=== PATIENT | male | born 1935 | race Caucasian/White ===

== ENCOUNTER 2017-08-04 12:08 | Emergency (ER) | payer MEDICARE ==
[~2017-08-04] VITALS: Ht 177.8 cm; Wt 86.8 kg
[~2017-08-04 12:08] MED LIST: ALPR1T PO; ASP81CT PO; ASPI-266 PO; CALC1TAB38 PO; CPR500T PO; FNST5T PO; HYDR-2890 PO; ISOS30TA3 PO; LANS30CA PO; MECL-124 PO; METO50TA2 PO; METO50TA7 PO; NTR.4SL PO; OMG1KC PO; RAMI10TA PO; SCOP1PAT TD; SIMV40TA2 PO; SIMV80TA3 PO; SPIR25TA3 PO; SULF-222 PO
[2017-08-04] MEDS ORDERED: HYDROcodone/APAP 5 MG/325 MG (LORTAB) TAB PO ONE (12:45)
--- NOTE | 2017-08-04 13:35 | ED Lower Extremity ---
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 Nursing Sepsis Screen: No Definite Risk Source: patient Exam Limitations: no limitations History of Present Illness Time seen by provider: 13:32 Initial Comments To ER with pain and tenderness to palpation to the lateral aspect of the left leg for the past 2-3 days. This goes from the ileum to the knee. No known injury. No swelling but he does have a history of DVT. Onset: other (2 days ago) Severity: moderate Pain/Injury Location: left leg Modifying Factors: Worse With Movement Allergies and Home Medications Allergies Coded Allergies: zolpidem (Verified Adverse Reaction, Severe, TOTAL CONFUSION ET OUT OF CHARACTER BEHAVIOR, 09/03/14) HAD AN AMBIEN WAS UP, MAKING BED, SUSPICIOUS, OUT OF IT, NO MEMORY OF THIS IN A.M. Home Medications Alprazolam 1 Mg Tablet, 0.5-1 MG PO BID PRN for ANXIETY, (Reported) TAKES 1/2 - 1 (1MG) TABLET Aspirin 81 Mg Tablet.dr, 81 MG PO DAILY, (Reported) Finasteride 5 Mg Tablet, 5 MG PO DAILY, (Reported) Hydrocodone Bit/Acetaminophen 1 Each Tablet, 1 TAB PO Q4H PRN for PAIN, ( Reported) Isosorbide Mononitrate 30 Mg Tab.sr.24h, 30 MG PO DAILY, (Reported) Lansoprazole 30 Mg Capsule.dr, 30 MG PO BID, (Reported) Metoprolol Tartrate 50 Mg Tablet, 25 MG PO BID, (Reported) TAKE 1/2 (50MG) TABLET Nitroglycerin 0.4 Mg Subl, 0.4 MG PO NEEDED PRN for CHEST PAIN, (Reported) [place] 3 Polyunsat Fatty Acids 1,000 Mg Cap, 2,000 MG PO BID, (Reported) TAKE 2 (1000MG) CAPSULE Ramipril 10 Mg Tablet, 10 MG PO HS, (Reported) Simvastatin 80 Mg Tablet, 40 MG PO HS, (Reported) TAKE 1/2 (80MG) TABLETS Spironolactone 25 Mg Tablet, 25 MG PO DAILY PRN for SWELLING, (Reported) Constitutional: see HPI EENTM: see HPI Respiratory: no symptoms reported Cardiovascular: no symptoms reported Genitourinary: no symptoms reported Musculoskeletal: see HPI Skin: no symptoms reported Psychiatric/Neurological: No Symptoms Reported Past Cbidaed-Plxvmd-Zxqpce Hx Patient Social History Alcohol Use: Occasionally Uses Alcohol Beverage of Choice: Wine Recreational Drug Use: No Smoking Status: Former Smoker Former Smoker, Quit: Jul 19, 1967 Recent Foreign Travel: No Contact w/Someone Who Travel: No Recent Infectious Disease Expo: No Recent Hopitalizations: No Immunizations Up To Date Tetanus Booster (TDap): More than 5yrs Date of Pneumonia Vaccine: Jul 19, 2016 Date of Influenza Vaccine: Jul 19, 2017 Seasonal Allergies Seasonal Allergies: No Surgeries History of Surgeries: Yes (hip replacement, hand, carpal tunnel, HERNIA) Surgeries: Cardiac, CABG, Coronary Stent, Gallbladder Respiratory History of Respiratory Disorde: No Cardiovascular History of Cardiac Disorders: Yes (bi pass x5, stents) Cardiac Disorders: Deep Vein Thrombosis Neurological History of Neurological Disord: No Reproductive System Hx Reproductive Disorders: No Genitourinary History of Genitourinary Disor: Yes (PROSTATE CA) Genitourinary Disorders: Prostate Problems Gastrointestinal History of Gastrointestinal Di: No Musculoskeletal History of Musculoskeletal Dis: Yes Musculoskeletal Disorders: Arthritis Endocrine History of Endocrine Disorders: No HEENT Loss of Vision: Denies Hearing Impairment: Denies 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, Skin Psychosocial History of Psychiatric Problem: Yes Behavioral Health Disorders: Anxiety Integumentary History of Skin or Integumenta: No Blood Transfusions History of Blood Disorders: No Adverse Reaction to a Blood Tr: No Family Medical History Family Medial History: Cancer 19 MOTHER, , Age:38 FH: kidney cancer 19 FATHER, FHx: heart disease G8 BROTHER G8 SISTER Myocardial infarction 19 FATHER, Physical Exam Vital Signs Vital Sign - Last 12Hours 08/04/17 12:33 Temp 98.5 Pulse 105 Resp 20 B/P (MAP) 128/66 Pulse Ox 95 O2 Delivery Room Air Capillary Refill : Less Than 3 Seconds General Appearance: WD/WN, no apparent distress HEENT: PERRL/EOMI, normal ENT inspection Neck: non-tender, full range of motion Cardiovascular: regular rate, rhythm, no murmur Respiratory: no respiratory distress, no accessory muscle use Gastrointestinal: normal bowel sounds, non tender, soft Hips: bilateral hip non-tender, bilateral hip normal inspection, bilateral hip normal range of motion Legs: left leg other (left lateral thigh tenderness to palpation. no rash, erythema, ecchymosis. ) Knees: bilateral knee non-tender, bilateral knee normal inspection, bilateral knee normal range of motion Ankles: bilateral ankle non-tender, bilateral ankle normal inspection, bilateral ankle normal range of motion Feet: bilateral foot non-tender, bilateral foot normal inspection, bilateral foot normal range of motion Neurologic/Psychiatric: alert, normal mood/affect, oriented x 3 Skin: normal color, warm/dry Progress/Results/Core Measures Results/Orders My Orders Orders - DANIELA KUNZ APRN Us Venous Upper Ext Lt (08/04/17 12:29) Pelvis (08/04/17 12:29) Femur, Left, 2 Views (08/04/17 12:29) Hydrocodone/Apap 5/325 Tablet (Lortab 5 (08/04/17 12:45) Us Venous Lower Ext Lt (08/04/17 13:13) Medications Given in ED Current Medications Medications Dose Ordered Sig/Tiarra Route Start Time Stop Time Status Last Admin Dose Admin Acetaminophen/ Hydrocodone Bitart 1 tab ONCE ONCE PO 08/04/17 12:45 08/04/17 12:46 DC 08/04/17 12:46 1 TAB Vital Signs/I&O Vital Sign - Last 12Hours 08/04/17 08/04/17 12:33 12:46 Temp 98.5 98.5 Pulse 105 Resp 20 B/P (MAP) 128/66 Pulse Ox 95 O2 Delivery Room Air Blood Pressure Mean: 86 Departure Impression Impression: Primary Impression: Iliotibial band syndrome Disposition: 01 HOME, SELF-CARE Condition: Stable Departure-Patient Inst. Decision time for Depature: 13:34 Referrals: OSWALD ALLRED MD (PCP) Primary Care Physician NATE SAL MD (Family) Primary Care Physician Patient Instructions: Iliotibial Band Syndrome Add. Discharge Instructions: 1. Return to ER for any concerns 2. Pain medication as directed 3. Stretching exercises as demonstrated 4. Follow-up with your doctor next week All discharge instructions reviewed with patient and/or family. Voiced understanding. Scripts Tramadol HCl (Ultram) 50 Mg Tablet 50 MG PO Q6H Y for PAIN-MODERATE TO SEVERE, #14 TAB Prov: DANIELA KUNZ APRN 08/04/17 Ibuprofen (Ibuprofen) 400 Mg Tablet 400 MG PO Q6H Y for PAIN, #14 TAB Prov: DANIELA KUNZ APRN 08/04/17 DANIELA KUNZ APRN Aug 04, 2017 13:35
[2017-08-04] MEDS ORDERED: TRAM-42 PO (13:37)
[2017-08-04] MEDS ORDERED: IBUP-1779 PO (13:37)
--- NOTE | 2017-08-04 13:49 | Diagnostic Imaging Report ---
PROCEDURE: US left lower extremity venous. TECHNIQUE: Multiple Real-time grayscale images were obtained over the left lower extremity in various projections. Additional duplex Doppler and color Doppler images were also obtained. INDICATION: Left leg pain. FINDINGS: The femoropopliteal deep venous system are widely patent. No deep or superficial thrombus is identified. There is a lobular popliteal fossa Lyon's cyst on the left measuring 3.5 x 1.5 x 5.5 cm longitudinally, presumed Lyon's cyst. No other mass or fluid collection. IMPRESSION: Prominent left popliteal fossa Lyon's cyst; however, the study is negative for venous thrombus. Dictated by: Dictated on workstation # [id number]
--- NOTE | 2017-08-04 14:33 | Diagnostic Imaging Report ---
AP view of the pelvis. INDICATION: Injury. FINDINGS: No fracture, dislocation or radiopaque foreign body. There is a right hip replacement. There is a eiwu-xq-mozogclm degenerative change in the left hip. IMPRESSION: No fracture seen. Dictated by: Dictated on workstation # [id number]
[2017-08-04 14:40] VITALS: BP 128/66
--- NOTE | 2017-08-04 14:56 | Diagnostic Imaging Report ---
Two views of the left femur. INDICATION: Left femur pain. FINDINGS: No fracture or dislocation is seen. The proximal and distal joints appear grossly unremarkable. There are teih-ad-fgrwoqdv degenerative changes in the left hip and left knee. No radiopaque foreign body. IMPRESSION: Degenerative changes. No fracture seen. Dictated by: Dictated on workstation # [id number]
== END 2017-08-04 14:40 | disposition home or self-care (01) ==
LOC: EDUNIT# 12:08 → ER 12:11
DX: M76.31 Iliotibial band syndrome, right leg (principal); F41.9 Anxiety disorder, unspecified; Z85.46 Personal history of malignant neoplasm of prostate; Z86.718 Personal history of other venous thrombosis and embolism; Z95.5 Presence of coronary angioplasty implant and graft; Z95.1 Presence of aortocoronary bypass graft; Z80.51 Family history of malignant neoplasm of kidney; Z79.82 Long term (current) use of aspirin; Z87.891 Personal history of nicotine dependence
CPT/HCPCS: 72170; 73552; 99283

== ENCOUNTER → 2017-08-17 | Outpatient (CLI) | payer MEDICARE ==
[~2017-08-17] MED LIST changes: +BARIUM SUSPENSION 2.1% (VANILLA SILQ) 450 ML PO ONE; +IBUP-1779 PO; +IOHEXOL 350 MG/ML 100 ML (OMNIPAQUE 350) VIAL IV ONE; +NS 100 ML (IVPB) BAG IV ONE; +TRAM-42 PO
[2017-08-17] MEDS: CATHETER FLUSH 10 ML SYR IV PRN ×2 (11:37→11:52)
--- NOTE | 2017-08-17 20:04 | Diagnostic Imaging Report ---
PROCEDURE: CT abdomen and pelvis with contrast. TECHNIQUE: Multiple contiguous axial images were obtained through the abdomen and pelvis after administration of intravenous contrast. INDICATION: Prostate cancer. 100 mL of Omnipaque 350 is administered intravenously. FINDINGS: There is mild bilateral gynecomastia seen. The lung bases demonstrate minimal atelectasis. The liver demonstrates a 1.5 cm cystic lesion in the central aspect of the right hepatic lobe. Tiny subcentimeter other hypodense lesions are seen in the liver, likely related to cirrhosis. The spleen, the pancreas, and the adrenal glands appear unremarkable. The kidneys have symmetric enhancement and contrast excretion. There is no hydronephrosis. Multiple cysts are seen bilaterally. 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 The abdominal aorta is normal in caliber. No para-aortic significantly enlarged lymph node is seen. There is a tiny fat-containing umbilical hernia. There is no bowel obstruction. No significant free fluid or fluid collection in the abdomen or pelvis is seen. There are beam hardening artifacts that would decrease sensitivity of detection of a subtle abnormality within the pelvis related to right hip replacement. The prostate is 4.4 cm in transverse dimension. The urinary bladder is nearly empty and with superimposed artifacts, is not well assessed on this exam. Advanced degenerative changes in the lumbar spine are seen. IMPRESSION: 1. No evidence of metastases in the abdomen or pelvis. 2. Tiny fat-containing umbilical hernia. Dictated by: Dictated on workstation # [id number]
--- NOTE | 2017-08-17 20:38 | Diagnostic Imaging Report ---
EXAMINATION: Whole body bone scan. TECHNIQUE: After the intravenous administration of 26.7 mCi of Technetium 99m MDP, whole body delayed phase bone scan images were obtained with lateral views of the head and neck and the chest regions. INDICATION: Prostate cancer. FINDINGS: There is mild to moderate increased tracer uptake seen around the sternoclavicular joint, bilaterally, similar to prior exam from 02/02/2007. Compatible with degenerative changes. There is a lesser degree of activity compatible with degenerative changes also noted in the joints including the shoulders, SI joints, hips and knees. Around the right hip there is photopenia from hip replacement. No suspicious intense foci of increased activity seen, particularly within the axial skeleton, to suggest osseous metastasis. Renal and urinary bladder activity is seen, expected from excretion. IMPRESSION: No scintigraphic evidence of osseous metastasis. Dictated by: Dictated on workstation # [id number]
== END ==
LOC: CARD 11:28
PROVIDERS: ATTEND Urology
DX: C61 Malignant neoplasm of prostate (principal)
CPT/HCPCS: 74177; 78306

== ENCOUNTER → 2018-05-01 | Outpatient (CLI) | payer MEDICARE ==
[~2018-05-01] MED LIST changes: -BARIUM SUSPENSION 2.1% (VANILLA SILQ) 450 ML PO ONE; -IOHEXOL 350 MG/ML 100 ML (OMNIPAQUE 350) VIAL IV ONE; -NS 100 ML (IVPB) BAG IV ONE
--- NOTE | 2018-05-01 08:55 | Diagnostic Imaging Report ---
CLINICAL INDICATION: Patient with posterior distal shaft humerus pain with no known injury for past two weeks. EXAM: X-ray of left humerus, two views. COMPARISON: X-ray left shoulder, dated 12/14/2010. FINDINGS: There is no evidence of acute fracture or dislocation. There is severely hypertrophic spurs involving the left acromioclavicular joint again seen. There is mild to moderately hypertrophic spurs involving the left glenoid rim and proximal humeral head/neck junction region. There is small spurs involving the elbow joint region. IMPRESSION: 1: There is no acute fracture or dislocation. 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 Dictated by: Dictated on workstation # [id number]
== END ==
LOC: RAD 08:31
PROVIDERS: ATTEND Family Medicine
DX: M19.012 Primary osteoarthritis, left shoulder (principal); M19.022 Primary osteoarthritis, left elbow
CPT/HCPCS: 73060

== ENCOUNTER → 2018-08-07 | Outpatient (CLI) | payer MEDICARE ==
--- NOTE | 2018-08-07 16:04 | Diagnostic Imaging Report ---
EXAMINATION: Whole body bone scan. INDICATION: Prostate CA. TECHNIQUE: This study was performed following administration of 26.6 mCi of 99m technetium MDP. Anterior and posterior whole body images were obtained as well as spot films of the calvarium and thorax in the lateral projection. FINDINGS: The previous whole body bone scan performed on 08/17/2017 failed to show any sign of metastatic disease. There was increased activity involving the acromioclavicular joint on the right, however. On this exam, there does appear to be greater activity involving the acromioclavicular joint on the right. The activity in both sternoclavicular joints is also greater than on the prior exam. I suspect that these findings are more likely due to degenerative disease than to neoplastic disease. Also, as on the prior exam, there are small areas of increased activity in the thoracic and lumbar spine. These seem similar in appearance as well. No new area of abnormal uptake has developed to suggest metastatic disease. As on the previous exam, there does appear to be severe degenerative disease involving the shoulder and knee joints as well as the left hip. There is excretion of the radiotracer by both kidneys. IMPRESSION: The increased activity involving the acromioclavicular joint on the right and both sternoclavicular joints is more likely due to degenerative disease than to neoplasm. There is no new area of abnormal uptake to suggest metastatic disease. Dictated by: Dictated on workstation # [id number]
--- NOTE | 2018-08-07 16:21 | Diagnostic Imaging Report ---
PROCEDURE: CT abdomen and pelvis without contrast. TECHNIQUE: Multiple contiguous axial images were obtained through the abdomen and pelvis without the use of intravenous contrast. INDICATION: Prostate CA. FINDINGS: The previous CT abdomen/pelvis exam of 08/17/2017 failed to show any sign of an acute abnormality of the abdomen or pelvis. There was no evidence for metastatic disease related to the patient's diagnosis of prostate carcinoma either. On this study, the prostate gland does not appear to be enlarged measuring 4.5 cm in maximum transverse diameter (normal 5 cm or less). There is no pelvic adenopathy to suggest metastatic disease. The pelvis is partially obscured however due to streak artifact related to the patient's total hip prosthesis on the right. The postsurgical changes involving the rectosigmoid junction seen previously are again evident. The urinary bladder is only partially distended and consequently difficult to assess. There is no obvious bladder abnormality evident. There does appear to be a sizable 3.9 x 5.3 cm hydrocele in the right scrotum. If further study is desired, then ultrasound would be recommended. There are few diverticula in the sigmoid and descending colon but there is no sign of acute diverticulitis. The appendix was visualized and is not abnormally thickened. The cyst arising from the kidneys seen previously are again evident. 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 The liver is stable in size. The suspected cysts in the left lobe and in the right lobe are again evident and essentially no different. The spleen, pancreas, adrenals, aorta, and inferior vena cava show no sign of an acute abnormality. The gallbladder is surgically absent. The stomach is partially filled with particulate matter and consequently difficult to assess. The lung bases show chronic pulmonary disease. There is no acute cardiopulmonary abnormality noted. The bone windows show no evidence for fracture or for destructive lesion. 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 IMPRESSION: 1. There is no acute abnormality of the abdomen or pelvis. 2. There is no sign of metastatic disease related to the patient's diagnosis of prostate carcinoma. A nuclear medicine bone scan is pending for further study. 3. There is a large hydrocele in the right scrotum. Recommendations, as above. Dictated by: Dictated on workstation # [id number]
== END ==
LOC: CARD 10:38
PROVIDERS: ATTEND Urology
DX: C61 Malignant neoplasm of prostate (principal); N43.3 Hydrocele, unspecified
CPT/HCPCS: 74176; 78306

== ENCOUNTER 2019-08-09 15:53 | Emergency (ER) | payer MEDICARE ==
[~2019-08-09] VITALS: Ht 177 cm; Wt 80.4 kg
--- NOTE | 2019-08-09 16:14 | ED Cough/URI ---
General Chief Complaint: Respiratory Problems Stated Complaint: SOB, COUGHING, CHEST CONGESTION Nursing Triage Note: DR ALLRED SAW PT AT HIS HOUSE AND SENT HIM TO THE ER FOR POSSIBLE PNEUMONIA. Sepsis Screen: No Definite Risk Source: patient Exam Limitations: no limitations History of Present Illness Date Seen by Provider: Aug 09, 2019 Time Seen by Provider: 16:11 Initial Comments 83-year-old male presents with worsening cough, subjective fever. Patient reports that 5 days ago he was seen at his house by Dr. Allred. He was prescribed azithromycin. Patient was racing again today. Concerned that he might possibly have a right lower lobe pneumonia and seemed to the ER for evaluation. He did start him on Keflex because patient initially did not want presents to the ER. No other systemic complaints. Allergies and Home Medications Allergies Coded Allergies: zolpidem (Verified Adverse Reaction, Severe, TOTAL CONFUSION ET OUT OF CHARACTER BEHAVIOR, 09/03/14) HAD AN AMBIEN WAS UP, MAKING BED, SUSPICIOUS, OUT OF IT, NO MEMORY OF THIS IN A.M. Home Medications Alprazolam 1 Mg Tablet, 0.5-1 MG PO BID PRN for ANXIETY, (Reported) TAKES 1/2 - 1 (1MG) TABLET Aspirin 81 Mg Tablet.dr, 81 MG PO DAILY, (Reported) Finasteride 5 Mg Tablet, 5 MG PO DAILY, (Reported) Hydrocodone Bit/Acetaminophen 1 Each Tablet, 1 TAB PO Q4H PRN for PAIN, (Reported) Ibuprofen 400 Mg Tablet, 400 MG PO Q6H PRN for PAIN Prescribed by: DANIELA KUNZ on 08/04/17 1337 Isosorbide Mononitrate 30 Mg Tab.sr.24h, 30 MG PO DAILY, (Reported) Lansoprazole 30 Mg Capsule.dr, 30 MG PO BID, (Reported) Metoprolol Tartrate 50 Mg Tablet, 25 MG PO BID, (Reported) TAKE 1/2 (50MG) TABLET Nitroglycerin 0.4 Mg Subl, 0.4 MG PO NEEDED PRN for CHEST PAIN, (Reported) [place] 3 Polyunsat Fatty Acids 1,000 Mg Cap, 2,000 MG PO BID, (Reported) TAKE 2 (1000MG) CAPSULE Ramipril 10 Mg Tablet, 10 MG PO HS, (Reported) Simvastatin 80 Mg Tablet, 40 MG PO HS, (Reported) TAKE 1/2 (80MG) TABLETS Spironolactone 25 Mg Tablet, 25 MG PO DAILY PRN for SWELLING, (Reported) Tramadol HCl 50 Mg Tablet, 50 MG PO Q6H PRN for PAIN-MODERATE TO SEVERE Prescribed by: DANIELA KUNZ on 08/04/17 [id number] Patient Home Medication List Home Medication List Reviewed: Yes Review of Systems Review of Systems Constitutional: chills, fever, malaise EENTM: see HPI Respiratory: cough, short of breath Gastrointestinal: no symptoms reported Genitourinary: no symptoms reported Musculoskeletal: no symptoms reported Skin: no symptoms reported Psychiatric/Neurological: No Symptoms Reported Past Txfmxya-Iuiftu-Qwwxnn Hx Past Med/Social Hx: Reviewed Nursing Past Med/Soc Hx Patient Social History Alcohol Use: Occasionally Uses Alcohol Beverage of Choice: Wine Recreational Drug Use: No Smoking Status: Former Smoker Former Smoker, Quit: Jul 19, 1967 Recent Foreign Travel: No Contact w/Someone Who Travel: No Recent Infectious Disease Expo: No Recent Hopitalizations: No Immunizations Up To Date Tetanus Booster (TDap): More than 5yrs Date of Pneumonia Vaccine: Jul 19, 2016 Date of Influenza Vaccine: Jul 19, 2017 Seasonal Allergies Seasonal Allergies: No Past Medical History Surgeries: Yes (hip replacement, hand, carpal tunnel, HERNIA) Cardiac, CABG, Coronary Stent, Gallbladder Respiratory: No Cardiac: Yes (bi pass x5, stents) Deep Vein Thrombosis Neurological: No Reproductive Disorders: No Genitourinary: Yes (PROSTATE CA) Prostate Problems Gastrointestinal: No Musculoskeletal: Yes Arthritis Endocrine: No Loss of Vision: Denies Hearing Impairment: Denies 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 5.0oz. 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 specialist II-XII nml as tested, alert, normal mood/affect, oriented x 3 Skin: normal color, warm/dry Focused Exam Lactate Level 08/09/19 16:25: Lactic Acid Level 0.99 Lactic Acid Level Laboratory Tests Test 08/09/19 16:25 Lactic Acid Level 0.99 MMOL/L (0.50-2.00) Progress/Results/Core Measures Suspected Sepsis Recent Fever Within 48 Hours: No Infection Criteria Present: Suspected New Infection New/Unexplained Altered Menta: No Sepsis Screen: No Definite Risk SIRS Temperature: Pulse: 100 Respiratory Rate: 16 Laboratory Tests 08/09/19 16:25: White Blood Count 5.6 Blood Pressure 168 /83 Mean: 111 08/09/19 16:25: Lactic Acid Level 0.99 Laboratory Tests 08/09/19 16:25: Creatinine 1.16, Platelet Count 125L Results/Orders Lab Results Laboratory Tests Test 08/09/19 16:25 Range/Units White Blood Count 5.6 4.3-11.0 10^3/uL Red Blood Count 4.31 L 4.35-5.85 10^6/uL Hemoglobin 13.1 L 13.3-17.7 G/DL Hematocrit 40 40-54 % Mean Corpuscular Volume 93 80-99 FL Mean Corpuscular Hemoglobin 30 25-34 PG Mean Corpuscular Hemoglobin Concent 33 32-36 G/DL Red Cell Distribution Width 12.8 10.0-14.5 % Platelet Count 125 L 130-400 10^3/uL Mean Platelet Volume 10.1 7.4-10.4 FL Sodium Level 139 135-145 MMOL/L Potassium Level 3.6 3.6-5.0 MMOL/L Chloride Level 101 98-107 MMOL/L Carbon Dioxide Level 25 21-32 MMOL/L Anion Gap 13 5-14 MMOL/L Blood Urea Nitrogen 19 H 7-18 MG/DL Creatinine 1.16 0.60-1.30 MG/DL Estimat Glomerular Filtration Rate 60 BUN/Creatinine Ratio 16 Glucose Level 124 H 70-105 MG/DL Lactic Acid Level 0.99 0.50-2.00 MMOL/L Calcium Level 8.9 8.5-10.1 MG/DL C-Reactive Protein High Sensitivity 2.17 H 0.00-0.50 MG/DL My Orders Orders - DOV CARTER L DO Chest Pa/Lat (2 View) (08/09/19 16:15) Basic Metabolic Panel (08/09/19 16:15) Cbc No Diff (08/09/19 16:15) Hs C Reactive Protein (08/09/19 16:15) Lactic Acid Analyzer (08/09/19 16:15) Albuterol/Ipra Inhalation Soln (Duoneb I (08/09/19 16:30) Svn Small Volume Nebulizer (08/09/19 16:17) Ketorolac Injection (Toradol Injection) (08/09/19 17:45) Benzonatate Capsule (Tessalon Perles) (08/09/19 17:45) Dexamethasone Injection (Decadron Inject (08/09/19 17:45) Medications Given in ED Current Medications Medications Dose Ordered Sig/Tiarra Route Start Time Stop Time Status Last Admin Dose Admin Albuterol/ Ipratropium 3 ml ONCE ONCE INH 08/09/19 16:30 08/09/19 16:31 DC 08/09/19 17:07 3 ML Vital Signs/I&O 08/09/19 15:55 Temp 37.3 Pulse 100 Resp 16 B/P (MAP) 168/83 (111) Pulse Ox 93 O2 Delivery Room Air Capillary Refill : Less Than 3 Seconds Blood Pressure Mean: 111 POS Progress Note : Time: 17:44 Progress Note Patient's main complaint while is here was a continued cough. I reviewed labs and x-ray with patient. I discussed with him that within a minute but there was no reason for admission. He should continue his Keflex. I will send him home with a prescription for Tessalon Perles along with a inhaler that seemed to help him. Patient is stable. His oxygenation remained in the upper 90s. With no signs of respiratory distress. Patient to return to the ER as needed. Departure Impression Primary Impression: Bronchitis Disposition: 01 HOME, SELF-CARE Condition: Stable Departure-Patient Inst. Referrals: OSWALD ALLRED MD (PCP/Family) Primary Care Physician Patient Instructions: Acute Bronchitis, Cough, Runny Nose, and the Common Cold (DC) Scripts Albuterol Sulfate (Albuterol Sulfate) 2.5 Mg/3 Ml Vial.neb 2.5 MG INH Q4H PRN for WHEEZING, #50 EA 1 Refill Prov: DOV CARTER DO 08/09/19 Benzonatate (TESSALON PERLES) 100 Mg Capsule 100 MG PO Q8H PRN for COUGH, #15 CAP Prov: DOV CARTER DO 08/09/19 DOV CARTER DO Aug 09, 2019 16:14 POS
[2019-08-09] MEDS ORDERED: RT-ALBUTEROL/IPRATROPIUM 3 ML (DUONEB) VIAL INH ONE (16:30)
[2019-08-09 16:36] LABS: HEMOGLOBIN 13.1 G/DL (13.3-17.7); MEAN PLATELET VOLUME 10.1 FL (7.4-10.4); RED CELL DISTRIBUTION WIDTH 12.8 % (10.0-14.5); WHITE BLOOD COUNT 5.6 10^3/uL (4.3-11.0)
[2019-08-09 16:57] LABS: CALCIUM 8.9 MG/DL (8.5-10.1); CREATININE SERUM 1.16 MG/DL (0.60-1.30); POTASSIUM 3.6 MMOL/L (3.6-5.0)
--- NOTE | 2019-08-09 17:36 | Diagnostic Imaging Report ---
HISTORY: Left arm pain. Suspect pneumonia. TECHNIQUE: Two views of the chest. COMPARISON: 07/20/2015. FINDINGS: Postsurgical changes are again seen of the chest, including post-CABG changes. No focal consolidation is seen. There is no pleural effusion or pneumothorax. The cardiac silhouette is stable in size. Degenerative changes are seen in the acromioclavicular joints, bilaterally. IMPRESSION: No acute pulmonary abnormality is seen. Dictated by: Dictated on workstation # [id number]
[2019-08-09] MEDS ORDERED: DEXAMETHASONE 10 MG/ML (DECADRON) 1 ML VIAL IM ONE (17:45)
[2019-08-09] MEDS ORDERED: KETOROLAC 30 MG/ML VIAL IVP ONE (17:45)
[2019-08-09] MEDS ORDERED: BENZONATATE 100 MG (TESSALON) CAPSULE PO SCH (17:45)
[2019-08-09] MEDS ORDERED: BENZ100C18 PO (17:47)
[2019-08-09] MEDS ORDERED: ALBU2.5V4 INH (17:47)
[2019-08-09 18:00] VITALS: BP 140/80
== END 2019-08-09 18:00 | disposition home or self-care (01) ==
LOC: EDUNIT# 15:53 → ER 15:54
DX: J40 Bronchitis, not specified as acute or chronic (principal); F41.9 Anxiety disorder, unspecified; Z85.828 Personal history of other malignant neoplasm of skin; Z79.82 Long term (current) use of aspirin; Z85.46 Personal history of malignant neoplasm of prostate; Z95.5 Presence of coronary angioplasty implant and graft; Z88.8 Allergy status to other drugs, medicaments and biological substances; Z87.891 Personal history of nicotine dependence; Z95.1 Presence of aortocoronary bypass graft; Z86.718 Personal history of other venous thrombosis and embolism; Z82.49 Family history of ischemic heart disease and other diseases of the circulatory system; Z80.51 Family history of malignant neoplasm of kidney
CPT/HCPCS: 36415; 71046; 80048; 83605; 85027; 86141; 94640; 96372

== ENCOUNTER → 2019-08-23 | Outpatient (CLI) | payer MEDICARE ==
[~2019-08-23] MED LIST changes: +ALBU2.5V4 INH; +BENZ100C18 PO
[2019-08-23 11:38] LABS: BASOPHILS % (AUTO) 0 % (0-10); EOSINOPHILS # (AUTO) 0.2 10^3/uL (0.0-0.3); EOSINOPHILS % (AUTO) 2 % (0-10); HEMATOCRIT 39 % (40-54); HEMOGLOBIN 12.4 G/DL (13.3-17.7); LYMPHOCYTES # (AUTO) 1.4 X 10^3 (1.0-4.0); LYMPHOCYTES % (AUTO) 16 % (12-44); MEAN CORPUSCULAR HEMOGLOBIN 30 PG (25-34); MEAN CORPUSCULAR HGB CONC 32 G/DL (32-36); MEAN CORPUSCULAR VOLUME 94 FL (80-99); MEAN PLATELET VOLUME 9.5 FL (7.4-10.4); MONOCYTES # (AUTO) 0.8 X 10^3 (0.0-1.0); MONOCYTES % (AUTO) 9 % (0-12); NEUTROPHILS # (AUTO) 6.3 X 10^3 (1.8-7.8); NEUTROPHILS % (AUTO) 73 % (42-75); PLATELET COUNT 258 10^3/uL (130-400); RED CELL DISTRIBUTION WIDTH 12.7 % (10.0-14.5); WHITE BLOOD COUNT 8.8 10^3/uL (4.3-11.0)
[2019-08-23 12:14] LABS: BILIRUBIN,TOTAL 0.5 MG/DL (0.1-1.0); CALCIUM 9.9 MG/DL (8.5-10.1); CREATININE SERUM 1.17 MG/DL (0.60-1.30); POTASSIUM 4.6 MMOL/L (3.6-5.0); TOTAL PROTEIN 7.1 GM/DL (6.4-8.2)
== END ==
LOC: LAB 11:20
PROVIDERS: ATTEND Nurse Practitioner Family
DX: R53.1 Weakness (principal)
CPT/HCPCS: 36415; 80053; 84436; 84443; 85025

== ENCOUNTER → 2019-10-30 | Outpatient (CLI) | payer MEDICARE | LOC: CARD 08:05 | PROVIDERS: ATTEND Nurse Practitioner Family | DX: R06.09 Other forms of dyspnea (principal) | CPT/HCPCS: 93225; 93226 ==

== ENCOUNTER 2020-05-03 18:10 | Observation (INO) | payer MEDICARE ==
[~2020-05-03] VITALS: Ht 177 cm; Wt 74.8 kg
--- NOTE | 2020-05-03 18:10 | NUR ---
NOTIFIED OMI ROJAS OF PT CONDITION.
[2020-05-03] MEDS ORDERED: ASPIRIN 81 MG CHEW (CHILDREN'S ASA) PO ONE (18:30)
[2020-05-03] MEDS ORDERED: NITROGLYCERIN 0.4 MG SL TABS BTL 25'S SL PRN ×2 (18:30→21:45)
[2020-05-03 18:54] LABS: BASOPHILS % (AUTO) 0 % (0-10); EOSINOPHILS # (AUTO) 0.2 10^3/uL (0.0-0.3); EOSINOPHILS % (AUTO) 2 % (0-10); HEMATOCRIT 38 % (40-54); HEMOGLOBIN 12.5 G/DL (13.3-17.7); LYMPHOCYTES # (AUTO) 2.1 X 10^3 (1.0-4.0); LYMPHOCYTES % (AUTO) 27 % (12-44); MEAN CORPUSCULAR HEMOGLOBIN 30 PG (25-34); MEAN CORPUSCULAR HGB CONC 33 G/DL (32-36); MEAN CORPUSCULAR VOLUME 91 FL (80-99); MEAN PLATELET VOLUME 10.2 FL (7.4-10.4); MONOCYTES # (AUTO) 0.8 X 10^3 (0.0-1.0); MONOCYTES % (AUTO) 10 % (0-12); NEUTROPHILS # (AUTO) 4.7 X 10^3 (1.8-7.8); NEUTROPHILS % (AUTO) 60 % (42-75); PLATELET COUNT 172 10^3/uL (130-400); WHITE BLOOD COUNT 7.8 10^3/uL (4.3-11.0)
[2020-05-03 19:05] LABS: PROTHROMBIN TIME PATIENT 13.7 SEC (12.2-14.7)
[2020-05-03 19:19] LABS: ALBUMIN 4.1 GM/DL (3.2-4.5); BILIRUBIN,TOTAL 0.3 MG/DL (0.1-1.0); CALCIUM 9.5 MG/DL (8.5-10.1); CREATININE SERUM 1.21 MG/DL (0.60-1.30); MAGNESIUM 1.6 MG/DL (1.6-2.4); POTASSIUM 4.2 MMOL/L (3.6-5.0); TOTAL PROTEIN 6.7 GM/DL (6.4-8.2)
[2020-05-03 19:25] LABS: CREATINE KINASE MB 1.3 NG/ML (<6.6)
--- NOTE | 2020-05-03 19:28 | ED Chest Pain ---
General Chief Complaint: Chest Pain Stated Complaint: CP/COUGH Nursing Triage Note: PT AMBULATE TO ROOM 08 WITH C/O CHEST PAIN. PT'S ARGUED THAT SHE WAS COMING TO ROOM WITH PT. FREIGHT CLAIM INVESTIGATOR SPOKE WITH AND EXPLAINED THAT VISITORS ARE NOT ALLOWED IN THE ED. AGREED AND LEFT PHONE NUMBER WITH REGISTRATION. PT DENIES CHEST PAIN UPON ARRIVAL. PT REPORTS TAKING X3 NITRO REHABILITATION CONSULTANT. Nursing Sepsis Screen: No Definite Risk Source: patient History of Present Illness Date Seen by Provider: May 03, 2020 Time Seen by Provider: 18:23 Initial Comments PT ARRIVES VIA POV FROM HOME C/O CHEST PAIN IN CENTER OF CHEST STATES HE "HAD IT REAL BAD" LAST NIGHT--TOOK 3 NITROGLYCERINE AND IT WENT AWAY STATES "IT HIT ME AGAIN TODAY" --STATES AROUND 1729, HE HAD GONE OUTSIDE FOR A SHORT PERIOD OF TIME, AND AFTER HE GOT BACK INTO THE HOUSE, HE BEGAN HAVING CHEST PAIN AGAIN--TOOK 3 NITROGLYCERINE AND IT WENT AWAY AGAIN, BUT THEN CAME HERE C/O SHORTNESS OF BREATH WITH THE PAIN, NOT NOW NO NAUSEA/VOMITING NO SWEATS NO PALPITATIONS NO DIZZINESS OR SYNCOPE NO SWELLING IN LEGS / FEET STATES LAST NIGHT, HE WAS HAVING PAIN IN HIS NECK WELL, BUT NOT TODAY PT HAS HAD CABG IN 1991, MULTIPLE STENTS AND ANGIOPLASTIES NO KNOWN SICK CONTACTS NO COUGH, URI SYMPTOMS OR FEVER PCP: DR. DESAI ENGINEERING DESIGN MANAGER: JERRY VALLE Allergies and Home Medications Allergies Coded Allergies: zolpidem (Verified Adverse Reaction, Severe, TOTAL CONFUSION ET OUT OF CHARACTER BEHAVIOR, 09/03/14) HAD AN AMBIEN WAS UP, MAKING BED, SUSPICIOUS, OUT OF IT, NO MEMORY OF THIS IN A.M. Home Medications Albuterol Sulfate 2.5 Mg/3 Ml Vial.neb, 2.5 MG INH Q4H PRN for WHEEZING Prescribed by: DOV CARTER on 08/09/191746 Alprazolam 1 Mg Tablet, 0.5-1 MG PO BID PRN for ANXIETY, (Reported) TAKES 1/2 - 1 (1MG) TABLET Aspirin 81 Mg Tablet., 81 MG PO DAILY, (Reported) Benzonatate 100 Mg Capsule, 100 MG PO Q8H PRN for COUGH Prescribed by: DOV CARTER on 08/09/191746 Finasteride 5 Mg Tablet, 5 MG PO DAILY, (Reported) Hydrocodone Bit/Acetaminophen 1 Each Tablet, 1 TAB PO Q4H PRN for PAIN, (Reported) Ibuprofen 400 Mg Tablet, 400 MG PO Q6H PRN for PAIN Prescribed by: DANIELA KUNZ on 08/04/17 178 Isosorbide Mononitrate 30 Mg Tab.sr.24h, 30 MG PO DAILY, (Reported) Lansoprazole 30 Mg Capsule.dr, 30 MG PO BID, (Reported) Metoprolol Tartrate 50 Mg Tablet, 25 MG PO BID, (Reported) TAKE 1/2 (50MG) TABLET Nitroglycerin 0.4 Mg Subl, 0.4 MG PO NEEDED PRN for CHEST PAIN, (Reported) [place] 3 Polyunsat Fatty Acids 1,000 Mg Cap, 2,000 MG PO BID, (Reported) TAKE 2 (1000MG) CAPSULE Ramipril 10 Mg Tablet, 10 MG PO HS, (Reported) Simvastatin 80 Mg Tablet, 40 MG PO HS, (Reported) TAKE 1/2 (80MG) TABLETS Spironolactone 25 Mg Tablet, 25 MG PO DAILY PRN for SWELLING, (Reported) Tramadol HCl 50 Mg Tablet, 50 MG PO Q6H PRN for PAIN-MODERATE TO SEVERE Prescribed by: DANIELA KUNZ on 08/04/171336 Patient Home Medication List Home Medication List Reviewed: Yes Review of Systems Review of Systems Constitutional: no symptoms reported; No chills, No diaphoresis, No dizziness, No fever Respiratory: See HPI, Shortness of Air Cardiovascular: See HPI, Chest Pain; Denies Edema, Denies Irregular Heart Rate, Denies Lightheadedness, Denies Palpitations, Denies Syncope Gastrointestinal: No Symptoms Reported; Denies Abdominal Pain, Denies Nausea, Denies Vomiting Genitourinary: No Symptoms Reported Musculoskeletal: see HPI, neck pain (LAST NIGHT, NOT NOW) Skin: no symptoms reported Psychiatric/Neurological: No Symptoms Reported Endocrine: No Symptoms Reported Hematologic/Lymphatic: No Symptoms Reported Past Bmjcxla-Zkawtu-Lvssvw Hx Past Med/Social Hx: Reviewed and Corrections made Patient Social History Alcohol Use: Occasionally Uses Number of Drinks Today: Alcohol Beverage of Choice: Wine Recreational Drug Use: No Smoking Status: Former Smoker (QUIT OVER 50 YEARS AGO) Type Used: Cigarettes Former Smoker, Quit: Jul 19, 1967 2nd Hand Smoke Exposure: No Recent Foreign Travel: No Contact w/Someone Who Travel: No Recent Infectious Disease Expo: No Recent Hopitalizations: No Physical Abuse: No Sexual Abuse: No Mistreated: No Fear: No Immunizations Up To Date Tetanus Booster (TDap): More than 5yrs Date of Pneumonia Vaccine: Jul 19, 2016 Date of Influenza Vaccine: Jul 19, 2017 Seasonal Allergies Seasonal Allergies: No Past Medical History Surgeries: Yes (R hip replacement, hand, R carpal tunnel, HERNIA) Abdominal, Bowel Surgery, Cardiac, CABG, Coronary Stent, Gallbladder Respiratory: No Cardiac: Yes (5 VESSEL CABG; CARDIAC STENTS AND ANGIOPLASTIES) Coronary Artery Disease, High Cholesterol, Hypertension Neurological: Yes Vertigo Reproductive Disorders: No Genitourinary: Yes (PROSTATE CA) Prostate Problems Gastrointestinal: Yes (COLON RESECTION FOR DIVERTICULITIS;CHOLECY STECTOMY;HERNIA REPAIR) Abdominal Hernia, Diverticulosis, Gall Bladder Disease Musculoskeletal: Yes (RIGHT HIP REPLACEMENT) Arthritis, Chronic Back Pain Endocrine: No HEENT: No Loss of Vision: Denies Hearing Impairment: Denies 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; 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, Skin Did You Recieve Any Treatments: Yes What Type of Treatment Did You: Chemotherapy Psychosocial: Yes Anxiety Integumentary: No Blood Disorders: No Adverse Reaction/Blood Tranf: No Family Medical History Cancer 19 MOTHER, , Age:38 FH: kidney cancer 19 FATHER, FHx: heart disease G8 BROTHER G8 SISTER Myocardial infarction 19 FATHER, PSH: -5 VESSEL CABG 1991 -CARDIAC CATHS--MULTIPLE STENTS X 4 AND MULTIPLE ANGIOPLASTIES -COLON RESECTION FOR DIVERTICULITIS -RIGHT HIP REPLACEMENT -CHOLECYSTECTOMY 2010 -RIGHT CARPPAL TUNNEL 08/2014 -BACK SURGERY -HERNIA REPAIR Physical Exam Vital Signs Vital Signs - First Documented 05/03/20 18:43 Temp 36.6 Pulse 69 Resp 22 B/P (MAP) 129/62 (84) O2 Delivery Room Air Capillary Refill : Less Than 3 Seconds Height, Weight, BMI Height: 5'10.00" Weight: 191lbs. 5.0oz. 86.008025jm; 23.00 BMI Method:Stated General Appearance: No Apparent Distress, WD/WN, Other (AMBULATES IN ON OWN WITH A CANE) HEENT: PERRL/EOMI Neck: Full Range of Motion, Normal Inspection, Non Tender, Supple; No Carotid Bruit, No JVD Respiratory: Chest Non Tender, Normal Breath Sounds, No Accessory Muscle Use, No Respiratory Distress Cardiovascular: Regular Rate, Rhythm, No Edema, No JVD, No Murmur, Normal Peripheral Pulses Gastrointestinal: Normal Bowel Sounds, No Organomegaly, No Pulsatile Mass, Non Tender, Soft Extremity: Normal Capillary Refill, Normal Inspection, Normal Range of Motion, Non Tender, No Calf Tenderness, No Pedal Edema Neurologic/Psychiatric: Alert, Oriented x3, No Motor/Sensory Deficits, Normal Mood/Affect, cold press loader II-XII Norm as Tested Skin: Normal Color, Warm/Dry Progress/Results/Core Measures Results/Orders Lab Results Laboratory Tests Test 05/03/20 18:35 Range/Units White Blood Count 7.8 4.3-11.0 10^3/uL Red Blood Count 4.23 L 4.35-5.85 10^6/uL Hemoglobin 12.5 L 13.3-17.7 G/DL Hematocrit 38 L 40-54 % Mean Corpuscular Volume 91 80-99 FL Mean Corpuscular Hemoglobin 30 25-34 PG Mean Corpuscular Hemoglobin Concent 33 32-36 G/DL Red Cell Distribution Width 13.0 10.0-14.5 % Platelet Count 172 130-400 10^3/uL Mean Platelet Volume 10.2 7.4-10.4 FL Neutrophils (%) (Auto) 60 42-75 % Lymphocytes (%) (Auto) 27 12-44 % Monocytes (%) (Auto) 10 0-12 % Eosinophils (%) (Auto) 2 0-10 % Basophils (%) (Auto) 0 0-10 % Neutrophils # (Auto) 4.7 1.8-7.8 X 10^3 Lymphocytes # (Auto) 2.1 1.0-4.0 X 10^3 Monocytes # (Auto) 0.8 0.0-1.0 X 10^3 Eosinophils # (Auto) 0.2 0.0-0.3 10^3/uL Basophils # (Auto) 0.0 0.0-0.1 10^3/uL Erythrocyte Sedimentation Rate 16 0-30 MM/HR Prothrombin Time 13.7 12.2-14.7 SEC INR Comment 1.0 0.8-1.4 Activated Partial Thromboplast Time 33 24-35 SEC Sodium Level 138 135-145 MMOL/L Potassium Level 4.2 3.6-5.0 MMOL/L Chloride Level 104 98-107 MMOL/L Carbon Dioxide Level 23 21-32 MMOL/L Anion Gap 11 5-14 MMOL/L Blood Urea Nitrogen 26 H 7-18 MG/DL Creatinine 1.21 0.60-1.30 MG/DL Estimat Glomerular Filtration Rate 57 BUN/Creatinine Ratio 21 Glucose Level 115 H 70-105 MG/DL Calcium Level 9.5 8.5-10.1 MG/DL Corrected Calcium 9.4 8.5-10.1 MG/DL Magnesium Level 1.6 1.6-2.4 MG/DL Total Bilirubin 0.3 0.1-1.0 MG/DL Aspartate Amino Transf (AST/SGOT) 13 5-34 U/L Alanine Aminotransferase (ALT/SGPT) 8 0-55 U/L Alkaline Phosphatase 60 40-136 U/L Lactate Dehydrogenase 155 125-220 U/L Total Creatine Kinase 39 30-200 U/L Creatine Kinase MB 1.3 <6.6 NG/ML Myoglobin 53.6 10.0-92.0 NG/ML Troponin I 0.082 H <0.028 NG/ML C-Reactive Protein High Sensitivity 4.23 H 0.00-0.50 MG/DL B-Type Natriuretic Peptide 164.3 H <100.0 PG/ML Total Protein 6.7 6.4-8.2 GM/DL Albumin 4.1 3.2-4.5 GM/DL Amylase Level 40 25-125 U/L Lipase 13 8-78 U/L Procalcitonin 0.02 <0.10 NG/ML My Orders Orders - GEOFF BUCKLEY DO Cbc With Automated Diff (05/03/20 18:22) Magnesium (05/03/20 18:22) Chest 1 View, Ap/Pa Only (05/03/20 18:22) Ekg Tracing (05/03/20 18:22) Comprehensive Metabolic Panel (05/03/20 18:22) Myoglobin Serum (05/03/20 18:22) Protime With Inr (05/03/20 18:22) Partial Thromboplastin Time (05/03/20 18:22) O2 (05/03/20 18:22) Monitor-Rhythm Ecg Trace Only (05/03/20 18:22) Ed Iv/Invasive Line Start (05/03/20 18:22) Creatine Kinase (05/03/20 18:22) Creatine Kinase Mb (05/03/20 18:22) Lipase (05/03/20 18:22) Amylase (05/03/20 18:22) BNP (05/03/20 18:22) Troponin I (05/03/20 18:22) Nitroglycerin 0.4 Mg Btl 25's (Nitrostat (05/03/20 18:30) Aspirin Chewable Tablet (Baby Aspirin Ch (05/03/20 18:30) Procalcitonin (Pct) (05/03/20 18:22) Hs C Reactive Protein (05/03/20 18:22) Erythrocyte Sedimentation Rate (05/03/20 18:22) LDH (05/03/20 18:22) Coronavirus Sars-Cov-2 So 2018 (05/03/20 18:22) Medications Given in ED Current Medications Medications Dose Ordered Sig/Tiarra Route Start Time Stop Time Status Last Admin Dose Admin Aspirin 324 mg ONCE ONCE PO 05/03/20 18:30 05/03/20 18:31 DC 05/03/20 18:45 324 MG Nitroglycerin 0.4 mg UD PRN SL 05/03/20 18:30 05/03/20 18:51 0.4 MG Vital Signs/I&O 05/03/20 18:43 Temp 36.6 Pulse 69 Resp 22 B/P (MAP) 129/62 (84) O2 Delivery Room Air Blood Pressure Mean: 84 Progress Progress Note : Progress Note NO PAIN OR SYMPTOMS OF ANY KIND DURING ER STAY Initial ECG Impression Date: May 03, 2020 Initial ECG Impression Time: 18:28 Initial ECG Rate: 72 Initial ECG Rhythm: Normal Sinus Diagnostic Imaging Comments CXR--PER RADIOLOGIST REPORT AT 1952 FINDINGS: Frontal view of the chest demonstrates coronary artery bypass graft changes. The heart size and vascularity are normal. Lungs are clear. There are no pleural effusions. IMPRESSION: There is no acute finding. Reviewed: Reviewed by Me Departure Communication (Admissions) Family Conversation 2014--SPOKE WITH PT'S AND UPDATED HER ON PT'S CONDITION AND OF HIS ADMIT 1954--SPOKE WITH DR. HUTCHINSON, ACCEPTS PT FOR ADMIT 1999--SPOKE WITH DR. BABIN, ENGINEERING DESIGN MANAGER, ADVISED OF CONSULT. ORDERS NOTED. Impression Primary Impression: Chest pain Additional Impression: Person under investigation for COVID-19 Disposition: ADMITTED INPATIENT Condition: Stable Admissions Decision to Admit Reason: Admit from ER (General) Decision to Admit/Date: May 03, 2020 Time/Decision to Admit Time: 20:00 Departure-Patient Inst. Referrals: DARSHAN DESAI DO (PCP/Family) Primary Care Physician GEOFF BUCKLEY DO May 03, 2020 19:28
--- NOTE | 2020-05-03 19:48 | Diagnostic Imaging Report ---
INDICATION: Chest pain. FINDINGS: Frontal view of the chest demonstrates coronary artery bypass graft changes. The heart size and vascularity are normal. Lungs are clear. There are no pleural effusions. IMPRESSION: There is no acute finding. Dictated by: Dictated on workstation # [id number]
[2020-05-03] MEDS ORDERED: CATHETER FLUSH 10 ML SYR IV PRN (21:45)
[2020-05-03] MEDS ORDERED: morphine INJ 4 MG/ML 1 ML (VIAL/SYRINGE) IV PRN (21:45)
[2020-05-03] MEDS ORDERED: ONDANSETRON 4 MG/2 ML (SDV) Z0FRAN IV PRN (21:45)
[2020-05-03 21:54] VITALS: BP 132/68
[2020-05-03 21:55] VITALS: BP 132/68
[2020-05-03 22:19] VITALS: BP 129/67
[2020-05-03 23:00] VITALS: BP 122/62
[2020-05-03] MEDS ORDERED: ALPRAZolam 1 MG (XANAX) TAB ONE ×2 (23:02→23:12)
[2020-05-03] MEDS ORDERED: ALPRAZolam 1 MG (XANAX) TAB PO PRN (23:30)
[2020-05-03 23:52] LABS: BILIRUBIN,URINE NEGATIVE (NEGATIVE); CLARITY,URINE CLEAR; COLOR,URINE YELLOW; GLUCOSE, URINE (UA) NEGATIVE (NEGATIVE); KETONES,URINE NEGATIVE (NEGATIVE); LEUKOCYTE ESTERASE ,URINE NEGATIVE (NEGATIVE); NITRITE,URINE NEGATIVE (NEGATIVE); PROTEIN,URINE NEGATIVE (NEGATIVE)
[2020-05-03] MEDS: CATHETER FLUSH 10 ML SYR IV SCH (23:56)
[2020-05-04] VITALS (12 sets, daily range): BP systolic 101–136; BP diastolic 50–88
[2020-05-04 00:08] LABS: BACTERIA,URINE NEGATIVE /HPF; SQUAMOUS EPITHELIAL CELL,UR 0-2 /HPF
[2020-05-04 03:29] LABS: BASOPHILS % (AUTO) 1 % (0-10); EOSINOPHILS # (AUTO) 0.2 10^3/uL (0.0-0.3); EOSINOPHILS % (AUTO) 3 % (0-10); HEMATOCRIT 36 % (40-54); HEMOGLOBIN 11.7 G/DL (13.3-17.7); LYMPHOCYTES # (AUTO) 1.9 X 10^3 (1.0-4.0); LYMPHOCYTES % (AUTO) 33 % (12-44); MEAN CORPUSCULAR HEMOGLOBIN 30 PG (25-34); MEAN CORPUSCULAR HGB CONC 33 G/DL (32-36); MEAN CORPUSCULAR VOLUME 91 FL (80-99); MEAN PLATELET VOLUME 10.1 FL (7.4-10.4); MONOCYTES # (AUTO) 0.7 X 10^3 (0.0-1.0); MONOCYTES % (AUTO) 12 % (0-12); NEUTROPHILS # (AUTO) 3.1 X 10^3 (1.8-7.8); NEUTROPHILS % (AUTO) 52 % (42-75); PLATELET COUNT 160 10^3/uL (130-400); RED CELL DISTRIBUTION WIDTH 12.8 % (10.0-14.5); WHITE BLOOD COUNT 5.9 10^3/uL (4.3-11.0)
[2020-05-04 03:37] LABS: ALBUMIN 3.6 GM/DL (3.2-4.5); CHLORIDE 107 MMOL/L (98-107); POTASSIUM 3.9 MMOL/L (3.6-5.0); SODIUM 140 MMOL/L (135-145)
[2020-05-04 03:38] LABS: CALCIUM 9.4 MG/DL (8.5-10.1)
[2020-05-04 03:39] LABS: TRIGLYCERIDES 67 MG/DL (<150); VLDL CHOLESTEROL 13 MG/DL (5-40)
[2020-05-04 03:40] LABS: GLUCOSE 88 MG/DL (70-105); TOTAL PROTEIN 6.3 GM/DL (6.4-8.2)
[2020-05-04 03:41] LABS: CARBON DIOXIDE 24 MMOL/L (21-32)
[2020-05-04 03:42] LABS: BILIRUBIN,TOTAL 0.5 MG/DL (0.1-1.0)
[2020-05-04 03:43] LABS: ALKALINE PHOSPHATASE 55 U/L (40-136)
[2020-05-04 03:44] LABS: CHOLESTEROL 114 MG/DL (< 200); GFR ESTIMATED > 60
[2020-05-04 03:45] LABS: BUN/CREATININE RATIO 22
[2020-05-04 03:46] LABS: HDL CHOLESTEROL 40 MG/DL (40-60)
[2020-05-04 03:47] LABS: ALANINE AMINOTRANSFERASE 8 U/L (0-55)
[2020-05-04] MEDS: CATHETER FLUSH 10 ML SYR IV SCH ×3 (06:05→21:42)
[2020-05-04] MEDS: ASPIRIN E.C. 81 MG (ECOTRIN) TAB PO SCH (08:02)
--- NOTE | 2020-05-04 10:01 | NUR ---
THIS RN CALLED PT'S TO PROVIDE UPDATE. THIS RN INFORMED PT'S THAT COVID RESULTS ARE STILL PENDING AND THAT AT THIS TIME THE PT IS STABLE. THIS RN INFORMED PT'S THAT DR. BABIN MENTIONED THE POTENTIAL OF PERFORMING AN ANGIOPLASTY ON THE PT SOME TIME TOMORROW. THIS RN ALSO INFORMED PT'S THAT SHE WOULD BE CALLED WITH ANY CHANGES AND/OR UPDATES. PT'S THANKFUL FOR UPDATE.
--- NOTE | 2020-05-04 10:17 | NUR ---
Pt is Faith. Disability Attorney spoke w/ pt's . She would like him anointed and agreed it could wait until COVID test results come back.
[2020-05-04] MEDS ORDERED: RAMI5CAP65 PO (12:27)
[2020-05-04] MEDS ORDERED: ALPR1TAB7 PO (12:27)
[2020-05-04] MEDS ORDERED: NITR0.4T42 PO (12:36)
[2020-05-04] MEDS ORDERED: SIMV80TA21 PO (12:36)
[2020-05-04] MEDS ORDERED: FINA5TAB6 PO (12:36)
[2020-05-04] MEDS ORDERED: [UNRECOGNIZED DRUG - CODE] PO (12:36)
[2020-05-04] MEDS ORDERED: METO50TA15 PO (12:36)
[2020-05-04] MEDS ORDERED: ASPI-983 PO (12:36)
[2020-05-04] MEDS ORDERED: OMG1KC PO (12:36)
--- NOTE | 2020-05-04 13:34 | NUR ---
SPOKE WITH THE PT ( I CALLED HIS ROOM PHONE AND THERE IS A MED LIST ON HIS CHART) ALSO CALLED HIS SIMI, WENT THRU THE EXT MED HISTORY AND CALLED DILLOJOSE MIGUEL TO COMPLETE THE MED REC 02-20-2020 FINASTERIDE 5MG #90/90DS ALTACE IS ON THE PT MED LIST 10MG BUT 5 MG HAS BEEN THE ONLY ALTACE FILLED RECENTLY PT GETS LUPRON DEPOT [address] YEUNG OFFICE AND THE LAST INJECTION WAS 01-07-2020 ( THE NEXT DOSE IS DUE 05-05-2020 BUT SIMI IS RESCHEDULING) OTC MEDS: PREVACID ASPIRIN 81 FISH OIL
[2020-05-04] MEDS ORDERED: LEUP30KI IM (13:37)
[2020-05-04] MEDS ORDERED: ENOXAPARIN 40 MG/0.4 ML (LOVENOX) SYR SC SCH (14:00)
--- NOTE | 2020-05-04 14:25 | NUR ---
THIS RN NOTIFIED DR. MCKEON OF PT'S NEGATIVE COVID RESULTS. NEW ORDERS TO REMOVE PT FROM ISOLATION. SEE ORDER HX.
--- NOTE | 2020-05-04 14:31 | NUR ---
THIS RN CALLED PT'S TO INFORM HER THAT PT'S COVID RESULTS CAME BACK NEGATIVE. THIS RN INFORMED HER THAT SHE COULD VISIT PT TODAY IF SHE WISHES TOO FROM THIS TIME UNTIL 1900. PT'S THANKFUL FOR UPDATE.
--- NOTE | 2020-05-04 14:34 | NUR ---
THIS RN CONTACTED DR. BABIN TO INFORM HIM OF PT'S REPORT OF CHEST PAIN THAT OCCURRED UPON MOVING HIS BEDSIDE TABLE. DR. BABIN NOTIFIED OF PT'S REPORT THAT THE CHEST PAIN WENT AWAY ALMOST QUICKLY IT OCCURRED. NO NEW ORDERS OBTAINED.
--- NOTE | 2020-05-04 15:27 | History & Physical-Hospitalist ---
History of Present Illness HPI/Chief Complaint Tk Rodriguez is an 84-year-old male with past medical history of hypertension, hyperlipidemia, coronary artery disease status post CABG, GERD, BPH, prostate cancer, who presented with chest pain. He reports that last night he developed chest pain in the center of his chest. He took several nitroglycerin and the pain subsided. He reports that a similar situation happened the day before. He denies any radiation of the pain to his arm or neck. He denies any shortness of breath at the time. He does report that he has been getting short of breath with chest discomfort with activity. He denies any nausea or vomiting. He denies any diaphoresis. He denies any fevers or chills. He denies any cough. Source: patient Exam Limitations: no limitations Date Seen 05/04/20 Time Seen by a Provider: 08:55 Attending Physician Bertha Singer MD PCP Ramin Ceballos DO Referring Physician Date of Admission May 03, 2020 at 20:00 Home Medications & Allergies Home Medications Reviewed patient Home Medication Reconciliation performed by pharmacy medication reconciliations gas technician and/or nursing. Patients Allergies have been reviewed. Allergies Allergies Coded Allergies zolpidem (Verified Adverse Reaction, Severe, TOTAL CONFUSION ET OUT OF CHARACTER BEHAVIOR, 09/03/14) HAD AN AMBIEN WAS UP, MAKING BED, SUSPICIOUS, OUT OF IT, NO MEMORY OF THIS IN A.M. Past Mkcphvt-Natfah-Jgucyb Hx Past Med/Social Hx: Reviewed Nursing Past Med/Soc Hx Patient Social History Alcohol Use: Occasionally Uses Number of Drinks Today: Alcohol Beverage of Choice: Wine Recreational Drug Use: No Smoking Status: Former Smoker (QUIT OVER 50 YEARS AGO) Former Smoker, Quit: Jul 19, 1967 Type Used: Cigarettes 2nd Hand Smoke Exposure: No Recent Foreign Travel: No Contact w/other who traveled: No Recent Hopitalizations: No Recent Infectious Disease Expo: No Immunizations Up To Date Tetanus Booster (TDap): More than 5yrs Date of Pneumonia Vaccine: Jul 19, 2016 Date of Influenza Vaccine: Jul 19, 2017 Seasonal Allergies Seasonal Allergies: No Past Medical History Surgeries: Abdominal, Bowel Surgery, Cardiac, CABG, Coronary Stent, Gallbladder Cardiac: Coronary Artery Disease, High Cholesterol, Hypertension Neurological: Vertigo Reproductive: No Genitourinary: Prostate Problems Gastrointestinal: Abdominal Hernia, Diverticulosis, Gall Bladder Disease Musculoskeletal: Arthritis, Chronic Back Pain Loss of Vision: Denies Hearing Impairment: Denies Cancer: Prostate, Skin Did You Recieve Any Treatments: Yes What Type of Treatment Did You: Chemotherapy Psychosocial: Anxiety History of Blood Disorders: No Adverse Reaction to Blood [place]: No Family History Cancer 19 MOTHER, , Age:38 FH: kidney cancer 19 FATHER, FHx: heart disease G8 BROTHER G8 SISTER Myocardial infarction 19 FATHER, PSH: -5 VESSEL CABG 1991 -CARDIAC CATHS--MULTIPLE STENTS X 4 AND MULTIPLE ANGIOPLASTIES -COLON RESECTION FOR DIVERTICULITIS -RIGHT HIP REPLACEMENT -CHOLECYSTECTOMY 2010 -RIGHT CARPPAL TUNNEL 08/2014 -BACK SURGERY -HERNIA REPAIR Review of Systems Constitutional: no symptoms reported EENTM: no symptoms reported Respiratory: short of breath Cardiovascular: chest pain Gastrointestinal: no symptoms reported Genitourinary: no symptoms reported Musculoskeletal: no symptoms reported Skin: no symptoms reported Psychiatric/Neurological: No Symptoms Reported Physical Exam Physical Exam Vital Signs Vital Signs - First Documented 05/03/20 05/03/20 18:43 21:35 Temp 36.6 Pulse 69 Resp 22 B/P (MAP) 129/62 (84) Pulse Ox 95 O2 Delivery Room Air Capillary Refill : Less Than 3 Seconds Height, Weight, BMI Height: 5'10.00" Weight: 191lbs. 5.0oz. 86.422822uq; 24.09 BMI Method:Stated General Appearance: No Apparent Distress, WD/WN, Other (Appears younger than stated age) HEENT: PERRL/EOMI, Pharynx Normal Neck: Normal Inspection, Supple Respiratory: Lungs Clear, Normal Breath Sounds, No Respiratory Distress Cardiovascular: Regular Rate, Rhythm, No Edema, No Murmur Gastrointestinal: Normal Bowel Sounds, Non Tender, Soft Extremity: Normal Inspection, Non Tender, No Pedal Edema Neurologic/Psychiatric: Alert, Oriented x3, No Motor/Sensory Deficits, Normal Mood/Affect Skin: Normal Color, Warm/Dry Results Results/Procedures Labs Laboratory Tests 05/03/20 18:35 05/04/20 03:18 Patient resulted labs reviewed. Imaging: Reviewed Imaging Report Assessment/Plan Admission Diagnosis Chest pain Admission Status: Observation Assessment and Plan Chest pain Elevated troponin Coronary artery disease History of CABG and multiple stents Troponin elevated at 0.08, repeat 0.09 Cardiology consulted, appreciate assistance Continue aspirin Continue statin Hypertension Hyperlipidemia GERD BPH Continue home meds DVT prophylaxis: Lovenox Diagnosis/Problems Diagnosis/Problems (1) Chest pain Status: Acute (2) Coronary artery disease Status: Acute (3) Elevated troponin Status: Acute (4) HTN (hypertension) Status: Chronic (5) HLD (hyperlipidemia) Status: Chronic (6) GERD (gastroesophageal reflux disease) Status: Chronic (7) BPH (benign prostatic hyperplasia) Status: Chronic Clinical Quality Measures AMI/AHF: ASA po Prior to arrival: No DVT/VTE Risk/Contraindication: Risk Factor Score Per Nursin RFS Level Per Nursing on Admit: 2=Moderate KERI MCKEON MD May 04, 2020 15:27
--- NOTE | 2020-05-04 16:21 | Consultation-Cardiology ---
HPI-Cardiology Cardiology Consultation: Date of Consultation 05/04/20 Date of Admission Attending Physician Bertha Singer MD Admitting Physician Ramin Ceballos DO Consulting Physician Mariaelena BAIG MD HPI: Time Seen by a Provider: 09:00 TBP-Gpcepf-Bhfipn Hx Patient Social History Alcohol Use: Occasionally Uses Recreational Drug Use: No Smoking Status: Former Smoker (QUIT OVER 50 YEARS AGO) Type Used: Cigarettes 2nd Hand Smoke Exposure: No Recent Foreign Travel: No Recent Infectious Disease Expo: No Hospitalization with Isolation: Denies Immunizations Up To Date Tetanus Booster (TDap): More than 5yrs Date of Pneumonia Vaccine: Jul 19, 2016 Date of Influenza Vaccine: Jul 19, 2017 Past Medical History PMH As described under Assessment. Family Medical History Family History: Cancer 19 MOTHER, , Age:38 FH: kidney cancer 19 FATHER, FHx: heart disease G8 BROTHER G8 SISTER Myocardial infarction 19 FATHER, Allergies and Home Medications Allergies Coded Allergies: zolpidem (Verified Adverse Reaction, Severe, TOTAL CONFUSION ET OUT OF CHARACTER BEHAVIOR, 09/03/14) HAD AN AMBIEN WAS UP, MAKING BED, SUSPICIOUS, OUT OF IT, NO MEMORY OF THIS IN A.M. Home Medications Alprazolam 1 Mg Tablet, 0.5 MG PO DAILY PRN for ANXIETY, (Reported) Aspirin 81 Mg Tablet.dr, 81 MG PO DAILY, (Reported) Finasteride 5 Mg Tablet, 5 MG PO DAILY, (Reported) Lansoprazole 15 Mg Capsule.dr, 30 MG PO DAILY, (Reported) TAKES 2 (15MG) CAPS Leuprolide Acetate 30 Mg/Kit Soln, 30 MG IM EVERY 4 MONTHS, (Reported) Metoprolol Tartrate 50 Mg Tablet, 25 MG PO BID, (Reported) TAKES OF A 50MG TAB TWICE DAILY Nitroglycerin 0.4 Mg Tab.subl, 0.4 MG PO UD PRN for CHEST PAIN (ANGINA), (Reported) [place] 3 Polyunsat Fatty Acids 1,000 Mg Cap, 2,000 MG PO BID, (Reported) TAKES 2 (1000MG) CAPS TWICE DAILY Ramipril 5 Mg Capsule, 5 MG PO HS, (Reported) Simvastatin 80 Mg Tablet, 40 MG PO HS, (Reported) TAKES OF AN 80MG TAB Physical Exam-Cardiology Physical Exam Vital Signs/I&O 05/04/20 05/04/20 05/04/20 05/04/20 05:00 06:00 07:00 08:00 Temp 36.6 Pulse 63 73 78 Resp 11 17 B/P (MAP) 103/65 (78) 114/69 (84) Pulse Ox 98 94 O2 Delivery Room Air Room Air 05/04/20 05/04/20 05/04/20 05/04/20 08:00 08:00 09:00 11:46 Temp 36.9 Pulse 79 Resp 15 B/P (MAP) 104/66 (79) Pulse Ox 96 O2 Delivery Room Air Room Air Room Air 05/04/20 05/04/20 05/04/20 05/04/20 11:47 12:00 13:00 16:17 Temp 37.2 Pulse 99 92 Resp 18 B/P (MAP) 136/88 (104) Pulse Ox 95 96 O2 Delivery Room Air Room Air 05/04/20 16:19 Pulse Ox 97 O2 Delivery Room Air Capillary Refill : Less Than 3 Seconds Data Review Labs Laboratory Tests 05/03/20 18:35: White Blood Count 7.8, Red Blood Count 4.23L, Hemoglobin 12.5L, Hematocrit 38L, Mean Corpuscular Volume 91, Mean Corpuscular Hemoglobin 30, Mean Corpuscular Hemoglobin Concent 33, Red Cell Distribution Width 13.0, Platelet Count 172, Mean Platelet Volume 10.2, Neutrophils (%) (Auto) 60, Lymphocytes (%) (Auto) 27, Monocytes (%) (Auto) 10, Eosinophils (%) (Auto) 2, Basophils (%) (Auto) 0, Neutrophils # (Auto) 4.7, Lymphocytes # (Auto) 2.1, Monocytes # (Auto) 0.8, Eosinophils # (Auto) 0.2, Basophils # (Auto) 0.0, Erythrocyte Sedimentation Rate 16, Prothrombin Time 13.7, INR Comment 1.0, Activated Partial Thromboplast Time 33, Sodium Level 138, Potassium Level 4.2, Chloride Level 104, Carbon Dioxide Level 23, Anion Gap 11, Blood Urea Nitrogen 26H, Creatinine 1.21, Estimat Glomerular Filtration Rate 57, BUN/Creatinine Ratio 21, Glucose Level 115H, Calcium Level 9.5, Corrected Calcium 9.4, Magnesium Level 1.6, Total Bilirubin 0.3, Aspartate Amino Transf (AST/SGOT) 13, Alanine Aminotransferase (ALT/SGPT) 8, Alkaline Phosphatase 60, Lactate Dehydrogenase 155, Total Creatine Kinase 39, Creatine Kinase MB 1.3, Myoglobin 53.6, Troponin I 0.082H, C-Reactive Protein High Sensitivity 4.23H, B-Type Natriuretic Peptide 164.3H, Total Protein 6.7, Albumin 4.1, Amylase Level 40, Lipase 13, Procalcitonin 0.02, Coronavirus (COVID-19)(PCR) NOT DETECTED 05/03/20 22:21: Troponin I 0.096H 05/03/20 23:25: Urine Color YELLOW, Urine Clarity CLEAR, Urine pH 6.0, Urine Specific [place] 1.010L, Urine Protein NEGATIVE, Urine Glucose (UA) NEGATIVE, Urine Ketones NEGATIVE, Urine Nitrite NEGATIVE, Urine Bilirubin NEGATIVE, Urine Urobilinogen 0.2, Urine Leukocyte Esterase NEGATIVE, Urine RBC (Auto) NEGATIVE, Urine RBC NONE, Urine WBC NONE, Urine Squamous Epithelial Cells 0-2, Urine Crystals NONE, Urine Bacteria NEGATIVE, Urine Casts NONE, Urine Mucus NEGATIVE, Urine Culture Indicated NO 05/04/20 03:18: White Blood Count 5.9, Red Blood Count 3.90L, Hemoglobin 11.7L, Hematocrit 36L, Mean Corpuscular Volume 91, Mean Corpuscular Hemoglobin 30, Mean Corpuscular Hemoglobin Concent 33, Red Cell Distribution Width 12.8, Platelet Count 160, Mean Platelet Volume 10.1, Neutrophils (%) (Auto) 52, Lymphocytes (%) (Auto) 33, Monocytes (%) (Auto) 12, Eosinophils (%) (Auto) 3, Basophils (%) (Auto) 1, Ne utrophils # (Auto) 3.1, Lymphocytes # (Auto) 1.9, Monocytes # (Auto) 0.7, Eosinophils # (Auto) 0.2, Basophils # (Auto) 0.0, Sodium Level 140, Potassium Level 3.9, Chloride Level 107, Carbon Dioxide Level 24, Anion Gap 9, Blood Urea Nitrogen 22H, Creatinine 1.00, Estimat Glomerular Filtration Rate > 60, BUN/Creatinine Ratio 22, Glucose Level 88, Calcium Level 9.4, Corrected Calcium 9.7, Total Bilirubin 0.5, Aspartate Amino Transf (AST/SGOT) 12, Alanine Aminotransferase (ALT/SGPT) 8, Alkaline Phosphatase 55, Total Protein 6.3L, Albumin 3.6, Triglycerides Level 67, Cholesterol Level 114, LDL Cholesterol Direct 57, VLDL Cholesterol 13, HDL Cholesterol 40 A/P-Cardiology Plan Thank you for your consultation. Please call me if you have any questions. Alina Baig MD, FACP, FACC, FSCAI, FHRS, CCDS Interventional Cardiology Cardiac Electrophysiology Vascular Medicine and Endovascular Interventions Clinical Quality Measures AMI/AHF: ASA po Prior to arrival: No DVT/VTE Risk/Contraindication: Risk Factor Score Per Nursin RFS Level Per Nursing on Admit: 2=Moderate Mariaelena BAIG MD May 04, 2020 16:21
[2020-05-04] MEDS: ALPRAZolam 0.5 MG (XANAX) TAB PO PRN ×2 (17:57→21:04)
[2020-05-04] MEDS: SIMvastatin 40 MG (ZOCOR) TAB PO SCH (21:04)
[2020-05-04] MEDS: meTOprolol TARTRATE 25 MG (LOPRESSOR) TABLET PO SCH (21:05)
[2020-05-05] VITALS (16 sets, daily range): BP systolic 89–111; BP diastolic 50–71
[2020-05-05] MEDS: CATHETER FLUSH 10 ML SYR IV SCH ×3 (06:33→20:25)
[2020-05-05] MEDS: ALPRAZolam 0.5 MG (XANAX) TAB PO PRN ×2 (06:33→20:16)
[2020-05-05] MEDS ORDERED: NS IV 1000 ML 1,000 ML ONE (07:44)
[2020-05-05] MEDS ORDERED: HEParin (CATH LAB) 2,000 ML IV ONE (07:44)
[2020-05-05] MEDS ORDERED: LIDOCAINE 1% INJ 20 ML 20 ML VIAL ONE (07:44)
--- NOTE | 2020-05-05 07:44 | NUR ---
REPORT RECEIVED AND ASSESSMENT COMPLETED. PT SITTING UP IN BED READING THE NEWSPAPER AND DENIES ANY COMPLAINTS. DENIES ANY CHEST PAIN. IS AT BEDSIDE, THIS RN UPDATED HER ON VISITING HOURS AND PROCEDURE. PTS BROTHER ATTEMPTED TO VISIT PATIENT AND VOICED UNDERSTANDING THAT HE WAS UNABLE TO VISIT SINCE HE ALREADY HAD A VISITOR TODAY. FAMILY SEEMED UNDERSTANDING. PT INFORMED OF NPO STATUS AFTER BREAKFAST, VOICED UNDERSTANDING. CALL LIGHT WITHIN REACH. NO COMPLAINTS VOICED.
[2020-05-05] MEDS ORDERED: PANTOPRAZOLE 40 MG (PROTONIX) TAB PO SCH (09:00)
[2020-05-05] MEDS ORDERED: FINASTERIDE (PROSCAR) 5 MG TAB PO SCH ×2 (09:00→21:00)
[2020-05-05] MEDS: meTOprolol TARTRATE 25 MG (LOPRESSOR) TABLET PO SCH ×2 (09:25→20:16)
--- NOTE | 2020-05-05 09:25 | NUR ---
Pt anointed by Fr MARTINEZ. provided communion to pt's .
[2020-05-05] MEDS: ASPIRIN E.C. 81 MG (ECOTRIN) TAB PO SCH (09:31)
--- NOTE | 2020-05-05 10:31 | Physical Therapy Evaluation ---
PT Evaluation-General Medical Diagnosis Admission Date May 03, 2020 at 20:00 Medical Diagnosis: chest pain Onset Date: May 03, 2020 Therapy Diagnosis Therapy Diagnosis: generalized weakness/debility Height/Weight Height (Feet): 5 Height (Inches): 10.00 Weight (Pounds): 191 Weight (Ounces): 5.0 Precautions Precautions/Isolations: Fall Prevention, Standard Precautions Weight Bear Status Right Lower Extremity: Right Weight Bearing/Tolerated Left Lower Extremity: Left Weight Bearing/Tolerated Referral Physician: Contreras Reason for Referral: Evaluation/Treatment Medical History Pertinent Medical History: CABG, CAD, HTN Additional Medical History prostate cancer Current History ambulated into ER secondary to chest pain Reviewed History: Yes Social History Home: Single Level Current Living Status: Spouse Prior Prior Level of Function SCALE: Activities may be completed with or without assistive devices. 5-Uvbuoapslw-eswjqvj completes the activity by him/herself with no assistance from a helper. 5-Set-up or Clean-up Assistance-helper sets up or cleans up; patient completes activity. Varney assists only prior to or following the activity. 4-Supervision or Touching Assistance-helper provides verbal cues and/or touching/steadying and/or contact guard assistance as patient completes activity. Assistance may be provided throughout the activity or intermittently. 3-Partial/Moderate Assistance-helper does LESS THAN HALF the effort. Varney lifts, holds or supports trunk or limbs, but provides less than half the effort. 2-Substantial/Maximal Assistance-helper does MORE THAN HALF the effort. Varney lifts or holds trunk or limbs and provides more than half the effort. 6-Bxutdpqfj-jjixqv does ALL the effort. Patient does none of the effort to complete the activity. Or, the assistance of 2 or more helpers is required for the patient to complete the activity. If activity was not attempted, code reason: 7-Patient Refused. 9-Not Applicable-not attempted and the patient did not perform the activity before the current illness, exacerbation or injury. 10-Not Attempted due to Environmental Limitations-(lack of equipment, weather restraints, etc.). 88-Not Attempted due to Medical Conditions or Safety Concerns. Bed Mobility: 6 Transfers (B,C,W/C): 6 Gait: 6 Indoor Mobility (Ambulation): Independent Prior Devices Use: Other-see list below Prior Device Use: cane PT Evaluation-Current Subjective Patient agrees to PT. Patient reports extreme weakness total body. Objective Patient Orientation: Normal For Age ROM/Strength ROM Lower Extremities bilateral LE WFL Strength Lower Extremities right knee flexion 3-/5; extension 3/5; hip flexion 3/5 left knee flexion 3-/5; extension 3-/5; hip flexion 3-/5 Integumentary/Posture Integumentary refer to nursing notes Bowel Incontinence: No Bladder Incontinence: No Posture kyphotic Neuromuscular (Tone, Coordination, Reflexes) grossly intact Sensory Vision: Functional Hearing: Impaired Sensation Right Lower Extremit: Intact Sensation Left Lower Extremity: Intact Transfers Roll Left to Right (QC): 3 Sit to Lying (QC): 2 Lying to Sitting/Side of Bed(Q: 2 Sit to Stand (QC): 2 Chair/Wqb-jc-Gitob Xfer(QC): 2 Gait Does the Patient Walk?: Yes Mode of Locomotion: Walk Anticipated Mode of Locomotion: Walk Walk 10 feet (QC): 2 Walk 50 ft with 2 Turns(QC): 88 Walk 150 ft (QC): 88 Gait Assistive Device: FWW Comments/Gait Description extreme weakness bilateral LE Balance Sitting Static: Normal Sitting Dynamic: Normal Standing Static: Fair Standing Dynamic: Fair Treatment HR elevated to 137 with activity/BP 90/57 in stand Assessment/Needs 84 y.o. male, will benefit from skilled PT to address functional strength and mobility to improve current LOF to safely return to home with spouse at maximum LOF. 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 Goals [facility] Goals PT [facility] Goals Time Frame: May 16, 2020 Roll Left & Right (QC): 6 Sit to Lying (QC): 6 Lying-Sitting on Side/Bed(QC): 6 Sit to Stand (QC): 6 Chair/Nzd-gm-Xyqsr Xfer(QC): 6 Toilet Transfer (QC): 6 Car Transfer (QC): 6 Does the Patient Walk: Yes Walk 10 feet (QC): 6 Walk 50ft with 2 Turns (QC): 6 Walk 150 ft (QC): 6 PT Plan Problem List Problem List: Activity Tolerance, Functional Strength, Safety, Balance, Gait, Transfer, Bed Mobility Treatment/Plan Treatment Plan: Continue Plan of Care Treatment Plan: Bed Mobility, Education, Functional Activity Varun, Functional Strength, Gait, Safety, Therapeutic Exercise, Transfers Treatment Duration: May 16, 2020 Frequency: 6 times per week Estimated Hrs Per Day: .25 hour per day Patient and/or Family Agrees t: Yes Time/GCodes Time In: 1003 Time Out: 1020 Total Billed Treatment Time: 17 Total [facility] PADDY SULLIVAN PT May 05, 2020 10:31
--- NOTE | 2020-05-05 10:45 | NUR ---
PT ASSISTED UP TO CHAIR. HE IS VERY WEAK. BOTH PT AND STATED HE HAS BEEN GETTING WEAKER AT HOME AND HAS TO USE A CANE. DOESN'T FEEL HE IS SAFE TO GO HOME AT THIS TIME. PT HAS BEEN UP TO SEE PATIENT. DR MCKEON AWARE.
[2020-05-05] MEDS ORDERED: fentaNYL INJECTION 100 MCG/2 ML AMP ONE (11:24)
[2020-05-05] MEDS ORDERED: MIDAZOLAM 5 MG/5 ML (VERSED) VIAL ONE (11:24)
[2020-05-05] MEDS ORDERED: HEParin 1000 UNIT/ML (10ML VIAL) FOR BOLUS ONE (11:24)
--- NOTE | 2020-05-05 11:29 | Progress Note - Hospitalist ---
Subjective HPI/CC On Admission Date Seen by Provider: May 05, 2020 Time Seen by Provider: 08:45 Tk Rodriguez is an 84-year-old male with past medical history of hypertension, hyperlipidemia, coronary artery disease status post CABG, GERD, BPH, prostate cancer, who presented with chest pain. He reports that last night he developed chest pain in the center of his chest. He took several nitroglycerin and the pain subsided. He reports that a similar situation happened the day before. He denies any radiation of the pain to his arm or neck. He denies any shortness of breath at the time. He does report that he has been getting short of breath with chest discomfort with activity. He denies any nausea or vomiting. He denies any diaphoresis. He denies any fevers or chills. He denies any cough. Subjective/Events-last exam He reports that he did not sleep very well. He denies any chest pain. He denies any shortness of breath. He denies any fevers. He has no other complaints or concerns. His is at the bedside and all questions were answered. Objective Exam Vital Signs Vital Signs Date Time Temp Pulse Resp B/P (MAP) Pulse Ox O2 Delivery O2 Flow Rate FiO2 05/05/20 08:00 101 21 93/67 (76) 97 Room Air 05/05/20 07:38 37.0 Capillary Refill : Less Than 3 Seconds General Appearance: No Apparent Distress, WD/WN Respiratory: Lungs Clear, Normal Breath Sounds, No Respiratory Distress Cardiovascular: Regular Rate, Rhythm, No Edema, No Murmur Gastrointestinal: Normal Bowel Sounds, Non Tender, Soft Extremity: Normal Inspection, Non Tender, No Pedal Edema Neurologic/Psychiatric: Alert, Oriented x3, Normal Mood/Affect Skin: Normal Color, Warm/Dry Results/Procedures Lab Patient resulted labs reviewed. Imaging: Reviewed Imaging Report Assessment/Plan Assessment and Plan Assess & Plan/Chief Complaint Chest pain Elevated troponin Coronary artery disease Cardiology consulted, appreciate assistance planning for left heart catheterization today Continue aspirin and statin Debility PT/OT IRF evaluation Hypertension Hyperlipidemia GERD BPH Continue home meds DVT prophylaxis: Lovenox Diagnosis/Problems Diagnosis/Problems (1) Chest pain Status: Acute (2) Coronary artery disease Status: Acute (3) Elevated troponin Status: Acute (4) HTN (hypertension) Status: Chronic (5) HLD (hyperlipidemia) Status: Chronic (6) GERD (gastroesophageal reflux disease) Status: Chronic (7) BPH (benign prostatic hyperplasia) Status: Chronic Clinical Quality Measures AMI/AHF: ASA po Prior to arrival: No DVT/VTE Risk/Contraindication: Risk Factor Score Per Nursin RFS Level Per Nursing on Admit: 2=Moderate KERI MCKEON MD May 05, 2020 11:29
--- NOTE | 2020-05-05 11:37 | NUR ---
PT TO SUPPLY CHAIN INTERN WITH SUPPLY CHAIN INTERN STAFF. PTS WITH PATIENT TO [facility] WAITING ROOM.
[2020-05-05] MEDS ORDERED: NS IV 1000 ML 1,000 ML IV SCH (12:00)
[2020-05-05] MEDS ORDERED: CLOPIDOGREL 75 MG (PLAVIX) TABLET ONE (13:09)
--- NOTE | 2020-05-05 13:12 | Cardiac Procedure Note-CS/ASA ---
Pre-Procedure Note Pre-Op Procedure Note H&P Reviewed The H&P was reviewed, patient examined and no changes noted. Date H&P Reviewed: May 05, 2020 Time H&P Reviewed: 08:45 Conscious Sedation Pre-Proced Time 08:45 ASA Score 3 For ASA 3 and 4: Consider anesthesia and medical clearance. Also, for patients with a history of failed moderate sedation consider anesthesia. Airway Lungs Heart ASA score ASA 1: a normal healthy patient ASA 2: a patient with a mild systemic disease (mid diabetes, controlled hypertension, obesity ASA 3: a patient with a severe systemic disease that limits activity (angina, COPD, prior Myocardial infarction) ASA 4: a patient with an incapacitating disease that is a constant threat to life (CHF, renal failure) ASA 5: a moribund patient not expected to survive 24 hrs. (ruptured aneurysm) ASA 6: a declared brain- patient whose organs are being harvested. For emergent operations, add the letter E after the classification Mallampati Classification Grade 1 Sedation Plan Analgesia, Amnesia, Plan communicated to team members, Discussed options with patient/fam, Discussed risks with patient/fam The patient is an appropriate candidate to undergo the planned procedure, sedation, and anesthesia. The patient immediately re-assessed prior to indication. Mariaelena BABIN MD May 05, 2020 13:12
--- NOTE | 2020-05-05 13:13 | Coronary Angiography Report ---
Coronary Angiography Report DATE OF PROCEDURE: 05/05/20 INDICATION: PREOPERATIVE DIAGNOSIS: POSTOPERATIVE DIAGNOSIS: HISTORY: Therefore, the patient was scheduled for coronary angiography. PROCEDURES PERFORMED: 1.Coronary angiography. 2.Left heart catheterization. COMPLICATIONS: None. SPECIMENS: None. ESTIMATED BLOOD LOSS: 10 mL ANESTHESIA: Conscious sedation ANTICOAGULATION: IV heparin CONTRAST: FLUOROSCOPY: FLOUROSCOPY DOSE: PROCEDURE DETAILS: The patient is a 84 male and was brought to the home performance laborer after informed consent was taken. All the risks and complications were explained in detail; this included the risk of bleeding, vascular damage, stroke, IN and even . The patient was draped and prepped in the usual sterile fashion. Access was gained in the right radial artery with a 6 [place] sheath. Coronary angiography and left heart catheterization was performed with the [place] catheter. FINDINGS: 1.Left main: 2.LAD: 3.Left circumflex artery: 4.RCA: 5.Left heart catheterization: CONCLUSIONS: 1. Severe three vessels [place] CAD. 2. Patent BAILEY to the mid LAD, SVG to the RPDA, SVG to OM. Known previous SVG occluded. 3. No PCI done. 4. Add Plavix. Continue aggressive secondary prevention measures. Alina Baig MD, FACP, FACC, [facility] Interventional Cardiology Mariaelena BAIG MD May 05, 2020 13:13
[2020-05-05] MEDS ORDERED: PATIENT MAY USE OWN MEDS, ALL PO SCH (13:15)
[2020-05-05] MEDS: NS IV 1000 ML 1,000 ML IV SCH ×2 (13:52→20:25)
--- NOTE | 2020-05-05 15:14 | NUR ---
IRF Evaluation Determination: Accepted Please note the ARU is capped, at this time. CM/SS notified. Will continue to follow as it relates to bed availability and admission. Thank you for this referral.
--- NOTE | 2020-05-05 20:03 | Cardiology Progress Note ---
Cardiology SOAP Progress Note Objective: I&O/Vital Signs 05/05/20 05/05/20 05/05/20 05/05/20 13:00 13:30 13:30 14:00 Temp 37.0 Pulse 85 Resp 21 12 B/P (MAP) 106/62 (77) 106/62 (77) 97/59 (72) Pulse Ox 97 O2 Delivery Room Air Room Air Room Air Room Air 05/05/20 05/05/20 05/05/20 05/05/20 14:15 14:30 14:45 15:00 Pulse 84 76 83 80 Resp 12 22 30 26 B/P (MAP) 89/52 (64) 96/52 (67) 93/50 (64) Pulse Ox 97 97 100 O2 Delivery Nasal Cannula Nasal Cannula Nasal Cannula Nasal Cannula O2 Flow Rate 2.00 2.00 2.00 2.00 05/05/20 05/05/20 05/05/20 05/05/20 15:30 16:00 16:00 16:30 Pulse 77 82 84 Resp 48 18 15 B/P (MAP) 93/52 (66) 96/50 (65) 101/53 (69) Pulse Ox 100 99 97 O2 Delivery Nasal Cannula Nasal Cannula Room Air Nasal Cannula O2 Flow Rate 2.00 2.00 2.00 05/05/20 05/05/20 05/05/20 05/05/20 17:00 17:30 18:00 19:13 Temp 37.2 Pulse 84 92 96 Resp 15 55 B/P (MAP) 106/71 (83) 96/58 (71) 103/63 (76) Pulse Ox 98 98 98 O2 Delivery Nasal Cannula Nasal Cannula Nasal Cannula Room Air O2 Flow Rate 2.00 2.00 2.00 05/05/20 19:13 O2 Delivery Room Air 05/05/20 00:00 Intake Total 1010 ml Output Total 1500 ml Balance -490 ml Weight (Pounds): 191 Weight (Ounces): 5.0 Weight (Calculated Kilograms): 86.542791 A/P: Thank you for your consultation. Please call me if you have any questions. Alina Baig MD, FACP, FACC, FSCAI, FHRS, CCDS Interventional Cardiology Cardiac Electrophysiology Vascular Medicine and Endovascular Interventions Clinical Quality Measures AMI/AHF: ASA po Prior to arrival: Mariaelena Jaimes MD May 05, 2020 20:03
[2020-05-05] MEDS: SIMvastatin 40 MG (ZOCOR) TAB PO SCH (20:16)
[2020-05-06] MEDS ORDERED: ASPIRIN E.C. 81 MG (ECOTRIN) TAB PO SCH (09:00)
[2020-05-06] MEDS ORDERED: CLOPIDOGREL 75 MG (PLAVIX) TABLET PO SCH (09:00)
[2020-05-06] MEDS ORDERED: LACTULOSE SYRUP 10GM/15ML (ENULOSE) 30ML UDC ONE (15:57)
[2020-05-06] MEDS ORDERED: SIMvastatin 20 MG (ZOCOR) TAB ONE (21:01)
[2020-05-06] MEDS ORDERED: meTOprolol TARTRATE 25 MG (LOPRESSOR) TABLET ONE (21:02)
[2020-05-06] MEDS ORDERED: FINASTERIDE (PROSCAR) 5 MG TAB PO ONE (21:02)
[2020-05-06] MEDS ORDERED: ALPRAZolam 0.5 MG (XANAX) TAB ONE (21:11)
[2020-05-07] MEDS ORDERED: SENNA W/DOCUSATE (SENOKOT S) TABLET PO PRN (07:45)
[2020-05-07] MEDS ORDERED: LACTULOSE SYRUP 10GM/15ML (ENULOSE) 30ML UDC PO PRN (07:45)
[2020-05-07] MEDS ORDERED: polyethylene glycoL POWDER 17 GM (MIRALAX) PACK PO PRN (07:45)
[2020-05-07 08:00] VITALS: BP 102/69
--- NOTE | 2020-05-07 09:00 | NUR ---
PT DISCHARGED TO ARU 05-06-20. SYSTEM DOWN AT THAT TIME
[2020-05-07 09:39] LABS: POTASSIUM 4.2 MMOL/L (3.6-5.0)
[2020-05-07 09:40] LABS: CALCIUM 9.1 MG/DL (8.5-10.1); CREATININE SERUM 1.42 MG/DL (0.60-1.30)
[2020-05-07 09:41] LABS: WHITE BLOOD COUNT 11.3 10^3/uL (4.3-11.0)
[2020-05-07 09:42] LABS: HEMOGLOBIN 11.9 G/DL (13.3-17.7); MEAN PLATELET VOLUME 10.3 FL (7.4-10.4); RED CELL DISTRIBUTION WIDTH 12.7 % (10.0-14.5)
--- NOTE | 2020-05-08 13:41 | Discharge Summary ---
Discharge Summary Hospital Course Was the Problem List Reviewed?: Yes Problems/Dx: (1) Chest pain Status: Acute (2) Coronary artery disease Status: Acute (3) Elevated troponin Status: Acute (4) HTN (hypertension) Status: Chronic (5) HLD (hyperlipidemia) Status: Chronic (6) GERD (gastroesophageal reflux disease) Status: Chronic (7) BPH (benign prostatic hyperplasia) Status: Chronic Hospital Course Date of Admission: May 03, 2020 at 20:00 Admission Diagnosis : chest pain Family Physician/Provider: Ramin Ceballos DO Date of Discharge: 05/08/20 Discharge Diagnosis: coronary artery disease, debility Hospital Course: Tk Rodriguez is an 84-year-old male with past medical history of hypertension, hyperlipidemia, coronary artery disease status post CABG, GERD, BPH, prostate cancer, who presented with chest pain. He had a mildly elevated troponin. Cardiology was consulted and assisted with his care. He underwent a left heart catheterization which did not reveal any occlusions amenable to intervention. His course was complicated by debility. He was transferred to the inpatient rehabilitation unit on discharge. He should follow-up with his primary care physician. Labs and Pending Lab Test: Home Meds Active Reported Lupron Dep[place] (Leuprolide Acetate) 30 Mg/Kit Soln 30 Mg IM EVERY 4 MONTHS Metoprolol Tartrate 50 Mg Tablet 25 Mg PO BID TAKES OF A 50MG TAB TWICE DAILY Simvastatin 80 Mg Tablet 40 Mg PO HS TAKES OF AN 80MG TAB Nitroglycerin 0.4 Mg Tab.subl 0.4 Mg PO UD PRN Aspirin EC (Aspirin) 81 Mg Tablet.dr 81 Mg PO DAILY Fish Oil 1,000 mg Capsule ([place] 3 Polyunsat Fatty Acids) 1,000 Mg Cap 2,000 Mg PO BID TAKES 2 (1000MG) CAPS TWICE DAILY Finasteride 5 Mg Tablet 5 Mg PO DAILY Heartburn Treatment 24 Hour (Lansoprazole) 15 Mg Capsule.dr 30 Mg PO DAILY TAKES 2 (15MG) CAPS Ramipril 5 Mg Capsule 5 Mg PO HS Alprazolam 1 Mg Tablet 0.5 Mg PO DAILY PRN Assessment/Pt Instructions take medications as prescribed. Participate in therapies. Follow-up with your primary care physician. Discharge Planning: <30 minutes discharge planning Discharge Instructions Discharge Diet: Low Sodium Diet Activity as Tolerated: Yes Discharge Physical Examination Vital Signs Vital Signs Date Time Temp Pulse Resp B/P (MAP) Pulse Ox O2 Delivery O2 Flow Rate FiO2 8/20/20 08:00 36.8 62 18 102/69 (80) 97 Room Air 05/05/20 18:00 2.00 General Appearance: No Apparent Distress, WD/WN HEENT: PERRL/EOMI, Pharynx Normal, Other (hearing difficulty) Respiratory: Lungs Clear, Normal Breath Sounds, No Respiratory Distress Cardiovascular: Regular Rate, Rhythm, No Edema, No Murmur Gastrointestinal: Normal Bowel Sounds, Non Tender, Soft Extremity: Normal Inspection, Non Tender, No Pedal Edema Skin: Normal Color, Warm/Dry Neurologic/Psychiatric: Alert, Oriented x3, Normal Mood/Affect, Motor Weakness Allergies: Coded Allergies: zolpidem (Verified Adverse Reaction, Severe, TOTAL CONFUSION ET OUT OF CHARACTER BEHAVIOR, 09/03/14) HAD AN AMBIEN WAS UP, MAKING BED, SUSPICIOUS, OUT OF IT, NO MEMORY OF THIS IN A.M. Discharge Summary Date of Admission May 03, 2020 at 20:00 Date of Discharge May 06, 2020 at 11:30 Discharge Date: May 06, 2020 Discharge Time: 11:30 Admission Diagnosis Chest pain Consults/Procedures Consulations Cardiology Procedures left heart catheterization Discharge Diagnosis Chest pain, Elevated troponin, Coronary artery disease, Debility (1) Chest pain Status: Acute (2) Coronary artery disease Status: Acute (3) Elevated troponin Status: Acute (4) HTN (hypertension) Status: Chronic (5) HLD (hyperlipidemia) Status: Chronic (6) GERD (gastroesophageal reflux disease) Status: Chronic (7) BPH (benign prostatic hyperplasia) Status: Chronic Clinical Quality Measures AMI/AHF: ASA po Prior to arrival: No DVT/VTE Risk/Contraindication: Risk Factor Score Per Nursin RFS Level Per Nursing on Admit: 2=Moderate KERI MCKEON MD May 08, 2020 13:40
[2020-05-11] MEDS ORDERED: CLOP75TA28 PO (05:32)
[2020-05-11] MEDS ORDERED: ISOS30TA3 PO (05:32)
[2020-05-11] MEDS ORDERED: METO-333 PO (05:32)
== END 2020-05-06 11:30 ==
LOC: EDUNIT# 18:10 → ER 18:12 → ICU 20:00
PROVIDERS: ADMIT Family Medicine; ATTEND Family Medicine
DX: I25.10 Atherosclerotic heart disease of native coronary artery without angina pectoris (principal); E78.00 Pure hypercholesterolemia, unspecified; I10 Essential (primary) hypertension; G89.29 Other chronic pain; M19.90 Unspecified osteoarthritis, unspecified site; M54.5 Low back pain; F41.9 Anxiety disorder, unspecified; E78.5 Hyperlipidemia, unspecified; K21.9 Gastro-esophageal reflux disease without esophagitis; N40.0 Benign prostatic hyperplasia without lower urinary tract symptoms; Z79.82 Long term (current) use of aspirin; Z79.51 Long term (current) use of inhaled steroids; Z88.8 Allergy status to other drugs, medicaments and biological substances; Z85.828 Personal history of other malignant neoplasm of skin; Z85.46 Personal history of malignant neoplasm of prostate; Z87.891 Personal history of nicotine dependence; Z20.828 Contact with and (suspected) exposure to other viral communicable diseases; Z80.51 Family history of malignant neoplasm of kidney
CPT/HCPCS: 36221; 71045; 80048; 80053 ×2; 80061; 81000; 82150; 82550; 82553; 83615; 83690; 83735; 83874; 83880; 84145; 84484; 85025 ×2; 85027; 85610; 85652; 85730; 86141; 93005 ×2; 93041; 93306; 93459; 97116; 97162; 99284; C1760; C1894; G0378; U0002; 36415; 87635

== ENCOUNTER 2020-05-06 10:20 | Inpatient (IN) | payer MEDICARE ==
[~2020-05-06] VITALS: Ht 177 cm; Wt 73.9 kg
[~2020-05-06 10:20] MED LIST changes: +ALPR1TAB7 PO; +ASPI-983 PO; +FINA5TAB6 PO; +LEUP30KI IM; +METO50TA15 PO; +NITR0.4T42 PO; +RAMI5CAP65 PO; +SIMV80TA21 PO; +[UNRECOGNIZED DRUG - CODE] PO
[2020-05-06] MEDS ORDERED: meTOprolol TARTRATE 25 MG (LOPRESSOR) TABLET PO SCH (21:00)
--- NOTE | 2020-05-07 09:14 | PM&R Post Admission Assessment ---
PM&R HP Date of Visit: May 06, 2020 Time of Visit: 12:00 History of Present Illness Pat: Chief complaint: Severe weakness due to cardiac causes History of present illness: This is an 84-year-old white male clinic patient of Dr. Ceballos and cardiology Dr. Carroll who presented to the emergency room with chest pain he was admitted risk stratified noted elevated troponin and underwent cardiac catheterization which revealed nonobstructive disease. He did have a history of coronary artery bypass graft. Overall he recovered well vitals remained stable and labs remained stable but needed inpatient rehab for continued recovery due to severity of his weakness. CC: chest pain HPI: Tk Rodriguez is a 84 yo M with history of 5 vessel CABG and stenting, hypertension, and hypercholesterolemia who visited [facility] 05/03/20 for chest pain. EKGs performed there showed left axis deviation. The patient was admitted to the ICU and had a cardiac catheterization performed 05/06 which showed small vessel occlusion, but without occlusion of large coronary vessels. The patient was also found to be COVID negative in the ICU. He will be in rehabilitation for strengthening before returning home. The patient currently complains of constipation since hospitalization as well as right MTP pain due to gout, which flares up in varying joints for a few days every 1-2 months. He denies chest pain or SOB. The patient states any weakness is due to lying down for several days, but denies feeling excessively weak or fatigued. ICU nursing notes the patients BP has been 90-100s/50-60s here. He takes a laxative at home but has not been on one during his hospital stay. HPI limited at this time due to EMR downtime. Full ER and cardiology notes not accessible. Hx obtained from printed chart review, nursing, patient interview, and printed cardiology procedure note. PMH: CABG & stenting, hypercholesterolemia, hypercholesterolemia, carpal tunnel, arthritis, Chronic back and neck pain, skin cancer, prostate cancer; gout (per pt) PSH: right hip replacement (2007), cholecystitis (2010), colon resection (2000), CABG (1991), Hernia repair (2006), Prostate Cancer (2005). Allergies: Zolpidem (Ambien) Medications: in hospital on Metoprolol (held by RN 05/06 d/t BP), pantoprazole, simvastatin, Finsteride. Clopidogrel added after catheterization 05/06. Home: Lupron Depot, Lansoprazole (Prevacid), ramipril, simvastatin, finasteride. Nitro and Xanax PRN. Social history: Walks with a cane but no oxygen at home. Lives with . Brother was active in [employer] politics. Family history noncontributory Physical exam: General: awake, alert, pleasant, no acute distress. Oriented to person, place, and time. Respiratory: lungs CTAB, no wheezing, no respiratory distress. No chest wall tenderness. Cardiac: heart RRR, no murmurs, LE pulses +2/4, No pitting edema. Labs/Imagin/19 .... 05/04 WBC 11.2 .... 5.9 HGB 11.9 .... 11.9 HCT 36 .... 36 Platelets 174 ....160 Na 135 .... 140 Cl 101 .... 107 K 4.2 .... 3.9 HCO3 24 .... 24 BUN 21 .... 22 Creat 1.42 .... 1.0 Serum Ca, Alk Phos, AST, ALT all WNL 05/04 and 05/06 05/04 Serum Glucose 88 Trig 67 Chol 114 HDL 40 LDL 57 VLDL 13 Assessment: 1. chest pain likely caused by small vessel atherosclerosis 2. Constipation 3. Gout flare up 4. Prostate cancer 5. Fatigue 6. Chronic neck pain 7. Chronic back pain Plan: Strengthen patient through OT and PT Rehabilitate prior to return home Continue to monitor BP, labs. Correct as needed. Plan for follow up with Dr. Baig, chyron operator who performed catheterization here Ensure open communication and follow up with Dr. Carroll, the patients regular chyron operator Jp Lema, Medical Student Past Koxyras-Svsmyq-Bcsotm Hx Past Med/Social Hx: Reviewed Nursing Past Med/Soc Hx, Reviewed and Corrections made Patient Social History Marrital Status: Employed/Student: retired ([employer]) Alcohol Use: Occasionally Uses Alcohol Beverage of Choice: Wine Smoking Status: Never a Smoker Former Smoker, Quit: Jul 19, 1967 Type Used: Cigarettes 2nd Hand Smoke Exposure: No Recent Hopitalizations: No Immunizations Up To Date Tetanus Booster (TDap): More than 5yrs Date of Pneumonia Vaccine: Jul 19, 2016 Date of Influenza Vaccine: Jul 19, 2017 Seasonal Allergies Seasonal Allergies: No Past Medical History Surgeries: Abdominal, Bowel Surgery, Cardiac, CABG, Coronary Stent, Gallbladder Cardiac: Coronary Artery Disease, High Cholesterol, Hypertension Neurological: Vertigo Reproductive: No Genitourinary: Prostate Problems Gastrointestinal: Abdominal Hernia, Diverticulosis, Gall Bladder Disease Musculoskeletal: Arthritis, Chronic Back Pain Loss of Vision: Denies Hearing Impairment: Denies Cancer: Prostate, Skin Did You Recieve Any Treatments: Yes What Type of Treatment Did You: Chemotherapy Psychosocial: Anxiety History of Blood Disorders: No Adverse Reaction to Blood [place]: No Family History Cancer 19 MOTHER, , Age:38 FH: kidney cancer 19 FATHER, FHx: heart disease G8 BROTHER G8 SISTER Myocardial infarction 19 FATHER, PSH: -5 VESSEL CABG 1991 -CARDIAC CATHS--MULTIPLE STENTS X 4 AND MULTIPLE ANGIOPLASTIES -COLON RESECTION FOR DIVERTICULITIS -RIGHT HIP REPLACEMENT -CHOLECYSTECTOMY 2010 -RIGHT CARPPAL TUNNEL 08/2014 -BACK SURGERY -HERNIA REPAIR PM&R Allergy/Meds/Data Review Allergies Coded Allergies: zolpidem (Verified Adverse Reaction, Severe, TOTAL CONFUSION ET OUT OF CHARACTER BEHAVIOR, 09/03/14) HAD AN AMBIEN WAS UP, MAKING BED, SUSPICIOUS, OUT OF IT, NO MEMORY OF THIS IN A.M. Home Medications Scheduled Aspirin (Aspirin EC), 81 MG PO DAILY, (Reported) Finasteride (Finasteride), 5 MG PO DAILY, (Reported) Lansoprazole (Heartburn Treatment 24 Hour), 30 MG PO DAILY, (Reported) Leuprolide Acetate (Lupron Depot), 30 MG IM EVERY 4 MONTHS, (Reported) Metoprolol Tartrate (Metoprolol Tartrate), 25 MG PO BID, (Reported) [place] 3 Polyunsat Fatty Acids (Fish Oil 1,000 mg Capsule), 2,000 MG PO BID, (Reported) Ramipril (Ramipril), 5 MG PO HS, (Reported) Simvastatin (Simvastatin), 40 MG PO HS, (Reported) Scheduled PRN Alprazolam (Alprazolam), 0.5 MG PO DAILY PRN for ANXIETY, (Reported) Nitroglycerin (Nitroglycerin), 0.4 MG PO UD PRN for CHEST PAIN (ANGINA), (Reported) Discontinued Medications Albuterol Sulfate (Albuterol Sulfate), 2.5 MG INH Q4H PRN for WHEEZING Discontinued Reason: No Longer Taking Alprazolam (Xanax), 0.5-1 MG PO BID PRN for ANXIETY, (Reported) Discontinued Reason: Duplicate Order Benzonatate (Tessalon Perles), 100 MG PO Q8H PRN for COUGH Discontinued Reason: No Longer Taking Hydrocodone Bit/Acetaminophen (Hydrocodon-Acetaminophn 10-325), 1 TAB PO Q4H PRN for PAIN, (Reported) Discontinued Reason: No Longer Taking Ibuprofen (Ibuprofen), 400 MG PO Q6H PRN for PAIN Discontinued Reason: No Longer Taking Isosorbide Mononitrate (Isosorbide Mononitrate 30 Mg), 30 MG PO DAILY, (Reported) Discontinued Reason: No Longer Taking Lansoprazole (Prevacid), 30 MG PO BID, (Reported) Discontinued Reason: Prescription changed Metoprolol Tartrate (Metoprolol Tartrate), 25 MG PO BID, (Reported) Discontinued Reason: Duplicate Order Nitroglycerin (Nitrostat), 0.4 MG PO NEEDED PRN for CHEST PAIN, (Reported) Discontinued Reason: Duplicate Order Ramipril (Altace), 10 MG PO HS, (Reported) Discontinued Reason: Duplicate Order Simvastatin (Simvastatin), 40 MG PO HS, (Reported) Discontinued Reason: Duplicate Order Spironolactone (Spironolactone), 25 MG PO DAILY PRN for SWELLING, (Reported) Discontinued Reason: No Longer Taking Tramadol HCl (Ultram), 50 MG PO Q6H PRN for PAIN-MODERATE TO SEVERE Discontinued Reason: No Longer Taking Current Medications Current Medications Reviewed Review of Systems Constitutional: see HPI, malaise, weakness EENTM: no symptoms reported Respiratory: dyspnea on exertion Cardiovascular: no symptoms reported Gastrointestinal: constipation Genitourinary: no symptoms reported Musculoskeletal: no symptoms reported Skin: no symptoms reported Psychiatric/Neurological: No Symptoms Reported All Other Systems Reviewed Negative Unless Noted: Yes Physical Exam Physical Exam Vital Signs Capillary Refill : Height, Weight, BMI Height: 5'10.00" Weight: 191lbs. 5.0oz. [id number]; 24.09 BMI Method:Stated General Appearance: No Apparent Distress, WD/WN, Chronically ill, Thin Eyes: Bilateral Eye Normal Inspection, Bilateral Eye PERRL HEENT: PERRL/EOMI, Normal ENT Inspection, Pharynx Normal Neck: Full Range of Motion, Normal Inspection, Non Tender, Supple, Carotid Bruit Respiratory: Chest Non Tender, Lungs Clear, Normal Breath Sounds, No Accessory Muscle Use, No Respiratory Distress, Decreased Breath Sounds Cardiovascular: Regular Rate, Rhythm, No Edema, No Gallop, No JVD, No Murmur, Normal Peripheral Pulses Gastrointestinal: Normal Bowel Sounds, No Organomegaly, No Pulsatile Mass, Non Tender, Soft Back: Normal Inspection, No CVA Tenderness, No Vertebral Tenderness Extremity: Normal Capillary Refill, Normal Inspection, Normal Range of Motion, Non Tender, No Calf Tenderness, No Pedal Edema Neurologic/Psychiatric: Alert, Oriented x3, No Motor/Sensory Deficits (generalized weakness all extremities), Normal Mood/Affect, 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 Norm as Tested, Abnormal Gait Skin: Normal Color, Warm/Dry Lymphatic: No Adenopathy PM&R Medical Assessment & Plan REHAB/MEDICAL ASSESSMENT AND PLAN: 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 The comorbidities that impact the patients function and/or functional outcome by: advanced age, generalized weakness, fall risk, advanced CAD REHAB PLAN: The patient is being admitted to our comprehensive inpatient rehabilitation facility and can tolerate the intensity of service consisting of at least: 180 minutes of therapy a day, 5 out of 7 days a week Rehab treatment will consist of: PT OT will focus on regaining strength and improve independence in ADL's in order to return home with The patient/family has a good understanding of our discharge process and will benefit from an interdisciplinary inpatient rehabilitation program. The patient has potential to make improvement and is in need of at least two of the following multidisciplinary therapies including but not limited to physical, occupational, speech, and prosthetics and orthotics. Additionally the patient will need services from respiratory, nutritional services, wound care, psychology, etc. (Customize this to each patient). Given the patients complex condition and risk of further medical complications, rehabilitation services cannot be safely or effectively provided at a lower level of care such as a group home facility. BARRIERS TO DISCHARGE: Advanced age ESTIMATED LOS: 7 days DISPOSITION: Home RELEVANT CHANGES SINCE PREADMISSION SCREENING: I have compared the patients medical and functional status at the time of the preadmission screening and there are: no changes PROGNOSIS: Good REHABILITATION GOALS: 1. PT OT will focus on regaining strength and improve independence in ADL's in order to return home with All the above goals were reviewed with the patient and he/she is in agreement. By signing this document, I acknowledge that I have personally performed a full physical examination on this patient within 24 hours of admission to this inpatient rehabilitation facility and have determined the patient to be able to tolerate the above course of treatment at an intensive level for a reasonable period of time. I will be completing a detailed individualized Plan of Care for this patient by day #4 of the patients stay based upon the Preadmission Screen, the Post-Admission Evaluation, and the therapy evaluations. Admission Dx/Comorbidities: (1) Debility ICD Codes: R53.81 - Other malaise (2) Chest pain on exertion Status: Acute ICD Codes: R07.9 - Chest pain, unspecified (3) Coronary artery disease Status: Acute ICD Codes: I25.10 - Atherosclerotic heart disease of [place] coronary artery without angina pectoris (4) GERD (gastroesophageal reflux disease) Status: Chronic ICD Codes: K21.9 - Gastro-esophageal reflux disease without esophagitis (5) HTN (hypertension) Status: Chronic ICD Codes: I10 - Essential (primary) hypertension (6) HLD (hyperlipidemia) Status: Chronic ICD Codes: E78.5 - Hyperlipidemia, unspecified (7) Elevated troponin Status: Acute ICD Codes: R79.89 - Other specified abnormal findings of blood chemistry (8) BPH (benign prostatic hyperplasia) Status: Chronic ICD Codes: N40.0 - Benign prostatic hyperplasia without lower urinary tract symptoms Assessment/Plan Assessment and Plan Assess & Plan/Chief Complaint Assessment: Debility from cardiac causes CAD CABG hx HTN HLP COVID negative Plan: IRF protocol Monitor pain O2 eval Telemetry LORIE GARCIA DO May 07, 2020 09:14
--- NOTE | 2020-05-07 09:15 | PM&R Progress Note ---
Subjective HPI/CC On Admission Date Seen by Provider: May 07, 2020 Time Seen by Provider: 09:30 Subjective/Events-last exam BP 100/70 Will likely discontinue telemetry if okay by cardiology Gout pain in his feet is now gone Constipation still continues so will go ahead and give suppository and Lactulose No nausea or vomiting Checked meds and labs Reviewed therapy notes Conferred with in store banker of Systems General: Fatigue, Malaise Pulmonary: Dyspnea Neurological: Weakness Objective Exam Vital Signs Vital Signs Date Time Temp Pulse Resp B/P (MAP) Pulse Ox O2 Delivery O2 Flow Rate FiO2 05/07/20 20:48 Room Air 05/07/20 16:00 35.9 84 16 106/64 (78) 98 Capillary Refill : General Appearance: No Apparent Distress, WD/WN, Chronically ill, Thin HEENT: PERRL/EOMI, Normal ENT Inspection, Pharynx Normal Neck: Full Range of Motion, Normal Inspection, Non Tender, Supple, Carotid Bruit Respiratory: Chest Non Tender, Lungs Clear, Normal Breath Sounds, No Accessory Muscle Use, No Respiratory Distress, Decreased Breath Sounds Cardiovascular: Regular Rate, Rhythm, No Edema, No Gallop, No JVD, No Murmur, Normal Peripheral Pulses Gastrointestinal: Normal Bowel Sounds, No Organomegaly, No Pulsatile Mass, Non Tender, Soft Back: Normal Inspection, No CVA Tenderness, No Vertebral Tenderness Extremity: Normal Capillary Refill, Normal Inspection, Normal Range of Motion, Non Tender, No Calf Tenderness, No Pedal Edema Neurologic/Psychiatric: Alert, Oriented x3, No Motor/Sensory Deficits (generalized weakness all extremities), Normal 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 FIM Transfers Therapy Code Descriptions/Definitions Functional [place] Measure: 0=Not Assessed/NA 4=Minimal Assistance 1=Total Assistance 5=Supervision or Setup 2=Maximal Assistance 6=Modified [place] 3=Moderate Assistance 7=Complete IndependenceSCALE: Activities may be completed with or without assistive devices. 3-Qrachaaosm-mqbdrll completes the activity by him/herself with no assistance from a helper. 5-Set-up or Clean-up Assistance-helper sets up or cleans up; patient completes activity. [place] assists only prior to or following the activity. 4-Supervision or Touching Assistance-helper provides verbal cues and/or touching/steadying and/or contact guard assistance as patient completes activity. Assistance may be provided throughout the activity or intermittently. 3-Partial/Moderate Assistance-helper does LESS THAN HALF the effort. [place] lifts, holds or supports trunk or limbs, but provides less than half the effort. 2-Substantial/Maximal Assistance-helper does MORE THAN HALF the effort. [place] lifts or holds trunk or limbs and provides more than half the effort. 8-Apdvmetzj-icvrlx does ALL the effort. Patient does none of the effort to complete the activity. Or, the assistance of 2 or more helpers is required for the patient to complete the activity. If activity was not attempted, code reason: 7-Patient Refused. 9-Not Applicable-not attempted and the patient did not perform the activity before the current illness, exacerbation or injury. 10-Not Attempted due to Environmental Limitations-(lack of equipment, weather restraints, etc.). 88-Not Attempted due to Medical Conditions or Safety Concerns. Assessment/Plan Assessment and Plan Assess & Plan/Chief Complaint Assessment: Debility from cardiac causes CAD CABG hx HTN HLP COVID negative CRI Plan: IRF protocol Monitor pain O2 eval Telemetry 05/07/20: Telroma DC? Monitor O2 sat Monitor for pain (1) Debility (2) Chest pain on exertion Status: Acute (3) Coronary artery disease Status: Acute (4) GERD (gastroesophageal reflux disease) Status: Chronic (5) HTN (hypertension) Status: Chronic (6) HLD (hyperlipidemia) Status: Chronic (7) Elevated troponin Status: Acute (8) BPH (benign prostatic hyperplasia) Status: Chronic LORIE GARCIA DO May 07, 2020 09:15
[2020-05-07] MEDS ORDERED: MELATONIN 3 MG TABLET PO PRN (09:45)
[2020-05-07] MEDS ORDERED: LACTULOSE SYRUP 10GM/15ML (ENULOSE) 30ML UDC PO PRN (09:45)
[2020-05-07] MEDS ORDERED: diphenhydrAMINE 25 MG TAB (BENADRYL) PO PRN (09:45)
[2020-05-07] MEDS ORDERED: ALPRAZolam 0.25 MG (XANAX) TAB PO PRN (09:45)
[2020-05-07] MEDS ORDERED: ONDANSETRON 4 MG (ZOFRAN) ORAL DISSOLVE TAB PO PRN (09:45)
[2020-05-07] MEDS ORDERED: BISACODYL 10 MG SUPP (DULCOLAX) PR PRN (09:45)
[2020-05-07] MEDS ORDERED: ACETAMINOPHEN 500 MG TAB (TYLENOL) PO PRN (09:45)
[2020-05-07] MEDS ORDERED: FLEET ENEMA ADULT 1 EA BTL PR PRN (09:45)
[2020-05-07] MEDS ORDERED: guaiFENesin/CODEINE (ROBITUSSIN AC) 10ML UDC PO PRN (09:45)
[2020-05-07] MEDS ORDERED: LOPERAMIDE 2 MG (IMODIUM) TABLET PO PRN (09:45)
[2020-05-07] MEDS ORDERED: CALCIUM CARBONATE 500 MG (TUMS) TAB.CHEW PO PRN (09:45)
[2020-05-07] MEDS ORDERED: ONDANSETRON 4 MG/2 ML (SDV) Z0FRAN IV PRN (09:45)
[2020-05-07] MEDS ORDERED: DOCUSATE SODIUM 100 MG (COLACE) CAP PO PRN (09:45)
--- NOTE | 2020-05-07 09:47 | Physical Therapy Daily Note ---
PT Daily Note-Current Subjective Agrees to PT. Reprots he wants to go home soon. Pain Numeric Pain Scale: 0-No Pain Location: No Pain Reported Mental Status Patient Orientation: Person, Place, Time, Situation Transfers SCALE: Activities may be completed with or without assistive devices. 9-Cacxwdhnzc-uzbljlr completes the activity by him/herself with no assistance from a helper. 5-Set-up or Clean-up Assistance-helper sets up or cleans up; patient completes activity. [place] assists only prior to or following the activity. 4-Supervision or Touching Assistance-helper provides verbal cues and/or touching/steadying and/or contact guard assistance as patient completes activity. Assistance may be provided throughout the activity or intermittently. 3-Partial/Moderate Assistance-helper does LESS THAN HALF the effort. [place] lifts, holds or supports trunk or limbs, but provides less than half the effort. 2-Substantial/Maximal Assistance-helper does MORE THAN HALF the effort. [place] lifts or holds trunk or limbs and provides more than half the effort. 0-Qtrdzcalo-knfpng does ALL the effort. Patient does none of the effort to complete the activity. Or, the assistance of 2 or more helpers is required for the patient to complete the activity. If activity was not attempted, code reason: 7-Patient Refused. 9-Not Applicable-not attempted and the patient did not perform the activity before the current illness, exacerbation or injury. 10-Not Attempted due to Environmental Limitations-(lack of equipment, weather restraints, etc.). 88-Not Attempted due to Medical Conditions or Safety Concerns. Sit to Stand (QC): 4 (SBA for safety) Worked on functional sit to stand transfers for correct sequencing and functional strength training. Gait Training Does the Patient Walk?: Yes Walk 10 feet (QC): 4 Walk 50 ft with 2 Turns(QC): 4 Walk 150 ft (QC): 4 Gait Assistive Device: FWW 200 ft, 150 ft, 300 ft with FWW with SBA. Forward flexed at hips and does rely on the walker. No safety concerns noted. Stair Training 4 Steps (QC): 3 (CGA for safety) Exercises Standing: Hamstring curls, Heel/toe raises, Marching, Mini squats Standing Reps: 15 (To promote functional activyt tolerance and strength for daily tasks in standing. ) Sit to stand 2 x 5 reps. Assessment Current Status: Good Progress PT Reception Manager Goals Usp Goals PT Usp Goals Time Frame: May 21, 2020 Roll Left & Right (QC): 6 Sit to Lying (QC): 6 Lying-Sitting on Side/Bed(QC): 6 Sit to Stand (QC): 6 Chair/Igb-cm-Netuf Xfer(QC): 6 Toilet Transfer (QC): 6 Car Transfer (QC): 6 Does the Patient Walk: Yes Walk 10 feet (QC): 6 Walk 50ft with 2 Turns (QC): 6 Walk 150 ft (QC): 6 Walking 10ft on Uneven Surface: 6 1 Step (curb) (QC): 6 4 Steps (QC): 6 12 Steps (QC): 9 Picking up an Object (QC): 4 Does the Pt use WC or Scooter?: No Wheel 50 feet with 2 turns (QC: 9 Wheel 150 feet: 9 PT Plan Problem List Problem List: Activity Tolerance, Functional Strength, Safety, Balance, Gait, Transfer, Bed Mobility Treatment/Plan Treatment Plan: Continue Plan of Care Treatment Plan: Bed Mobility, Education, Functional Activity Varun, Functional Strength, Group Therapy, Gait, Safety, Therapeutic Exercise, Transfers Treatment Duration: May 21, 2020 Frequency: At least 5 of 7 days/Wk (IRF) Estimated Hrs Per Day: 1.5 hours per day Patient and/or Family Agrees t: Yes Safety Risks/Education Patient Education: Transfer Techniques Teaching Recipient: Patient Teaching Methods: Demonstration, Discussion Response to Teaching: Reinforcement Needed Time/GCodes Time In: 815 Time Out: 915 Total Billed Treatment Time: 60 Total Billed Treatment visit GT 30 EX 30 MARISA ECHEVERRIA PT May 07, 2020 09:47
--- NOTE | 2020-05-07 10:21 | Occupational Ther Daily Note ---
OT Current Status-Daily Note Subjective Pt in reclining chair when OT entered room. No c/o pain. Pt agreeable to therapy. Mental Status/Objective Patient Orientation: Person, Place, Time, Situation Attachments: IV, Telemetry ADL-Treatment Therapy Code Descriptions/Definitions Functional [place] Measure: 0=Not Assessed/NA 4=Minimal Assistance 1=Total Assistance 5=Supervision or Setup 2=Maximal Assistance 6=Modified [place] 3=Moderate Assistance 7=Complete IndependenceSCALE: Activities may be completed with or without assistive devices. 9-Xrswcuhfiz-utzlgzw completes the activity by him/herself with no assistance from a helper. 5-Set-up or Clean-up Assistance-helper sets up or cleans up; patient completes activity. [place] assists only prior to or following the activity. 4-Supervision or Touching Assistance-helper provides verbal cues and/or touching/steadying and/or contact guard assistance as patient completes activity. Assistance may be provided throughout the activity or intermittently. 3-Partial/Moderate Assistance-helper does LESS THAN HALF the effort. [place] lifts, holds or supports trunk or limbs, but provides less than half the effort. 2-Substantial/Maximal Assistance-helper does MORE THAN HALF the effort. [place] lifts or holds trunk or limbs and provides more than half the effort. 4-Saskobrmk-hteqff does ALL the effort. Patient does none of the effort to complete the activity. Or, the assistance of 2 or more helpers is required for the patient to complete the activity. If activity was not attempted, code reason: 7-Patient Refused. 9-Not Applicable-not attempted and the patient did not perform the activity before the current illness, exacerbation or injury. 10-Not Attempted due to Environmental Limitations-(lack of equipment, weather restraints, etc.). 88-Not Attempted due to Medical Conditions or Safety Concerns. Shower/Bathe Self (QC): 5 Upper Body Dressing (QC): 5 Lower Body Dressing (QC): 5 On/Off Footwear: 5 Toileting Hygiene (QC): 6 Toilet Transfer (QC): 6 Pt in reclining chair agreeable to therapy. He ambulated to toilet independently with walker. Once seated on toilet, pt able to complete jessica cleansing independently. He completed showering and drying independently after setup and with extra time. Pt able to doff/don socks, shoes, shirt, and pants independently with extra time after setup. He ambulated back to reclining chair with walker. Pt. in chair with call light and in room. All needs met. Education OT Patient Education: Correct positioning, Energy conservation, Modified ADL techniques, Progress toward Goal/Update tx plan, Purpose of tx/functional activities, Reviewed precautions, Rehab process, Safety issues, Transfer techniques Teaching Recipient: Patient Teaching Methods: Demonstration, Discussion Response to Teaching: Verbalize Understanding, Return Demonstration OT [facility] Goals Mesh Man Goals Time Frame: May 20, 2020 Eating (QC): 6 Oral Hygiene (QC): 6 Toileting Hygiene (QC): 6 Shower/Bathe Self (QC): 6 Upper Body Dressing (QC): 6 Lower Body Dressing (QC): 6 On/Off Footwear (QC): 6 Additional Goals: 1-Demonstrate ADL Tasks, 2-Verbalize Understanding, 3-ImproveStrength/Varun 1=Demonstrate adherence to instructed precautions during ADL tasks. 2=Patient will verbalize/demonstrate understanding of assistive devices/modifications for ADL. 3=Patient will improve strength/tolerance for activity to enable patient to perform ADL's. OT Education/Plan Problem List/Assessment Assessment: Decreased Activ Tolerance, Decreased UE Strength, Impaired I ADL's Discharge Recommendations Plan/Recommendations: Continue POC Therapy Discharge Recommendati: Home & Family Equpiment Recommendations-D/C: Rails on Tub/Shower, Rails on Toilet Treatment Plan/Plan of Care Treatment,Training & Education: Yes Patient would benefit from OT for education, treatment and training to promote independence in ADL's, mobility, safety and/or upper extremity function for ADL's. Plan of Care: ADL Retraining, Functional Mobility, Group Exercise/Act as Ind, UE Funct Exercise/Act Treatment Duration: May 20, 2020 Frequency: At least 5 of 7 days/Wk (IRF) Estimated Hrs Per Day: 1.5 hours per day Agreement: Yes Rehab Potential: Good Time/GCodes Start Time: 09:15 Stop Time: 10:15 Total Time Billed (hr/min): 60 Billed Treatment Time 1, ADL 4 (60 minutes) ERIK KIMBLAL OT May 07, 2020 10:21
--- NOTE | 2020-05-07 11:00 | NUR ---
CONSULTED DR. BABIN REGARDING DISCONTINUING TELEMETRY. NEW ORDERS RECEIVED TO DC TELEMETRY.
[2020-05-07] MEDS ORDERED: ASPIRIN E.C. 81 MG (ECOTRIN) TAB PO ONE (13:13)
[2020-05-07] MEDS ORDERED: CLOPIDOGREL 75 MG (PLAVIX) TABLET ONE (13:13)
[2020-05-07] MEDS ORDERED: PANTOPRAZOLE 40 MG (PROTONIX) TAB PO ONE (13:13)
[2020-05-07] MEDS ORDERED: morphine INJ 4 MG/ML 1 ML (VIAL/SYRINGE) IV PRN (13:15)
[2020-05-07] MEDS ORDERED: ACETAMINOPHEN 325 MG TABLET PO PRN (13:15)
--- NOTE | 2020-05-07 14:08 | Occupational Ther Daily Note ---
OT Current Status-Daily Note Subjective Pt in reclining chair with in the room. No c/o pain. Pt agreeable to therapy. Mental Status/Objective Patient Orientation: Person, Place, Time, Situation ADL-Treatment Therapy Code Descriptions/Definitions Functional [place] Measure: 0=Not Assessed/NA 4=Minimal Assistance 1=Total Assistance 5=Supervision or Setup 2=Maximal Assistance 6=Modified [place] 3=Moderate Assistance 7=Complete IndependenceSCALE: Activities may be completed with or without assistive devices. 9-Qsslzxkvjn-fhvuhji completes the activity by him/herself with no assistance from a helper. 5-Set-up or Clean-up Assistance-helper sets up or cleans up; patient completes activity. [place] assists only prior to or following the activity. 4-Supervision or Touching Assistance-helper provides verbal cues and/or touc adia/steadying and/or contact guard assistance as patient completes activity. Assistance may be provided throughout the activity or intermittently. 3-Partial/Moderate Assistance-helper does LESS THAN HALF the effort. [place] lifts, holds or supports trunk or limbs, but provides less than half the effort. 2-Substantial/Maximal Assistance-helper does MORE THAN HALF the effort. [place] lifts or holds trunk or limbs and provides more than half the effort. 9-Hourmgcys-wtyayc does ALL the effort. Patient does none of the effort to complete the activity. Or, the assistance of 2 or more helpers is required for the patient to complete the activity. If activity was not attempted, code reason: 7-Patient Refused. 9-Not Applicable-not attempted and the patient did not perform the activity before the current illness, exacerbation or injury. 10-Not Attempted due to Environmental Limitations-(lack of equipment, weather restraints, etc.). 88-Not Attempted due to Medical Conditions or Safety Concerns. Oral Hygiene (QC): 5 Toileting Hygiene (QC): 6 Toilet Transfer (QC): 6 Pt ambulated to bathroom with walker and stood at toilet to urinate and completed toilet hygiene independently. He washed his hands and brushed his teeth while standing at the bathroom sink after set up. Pt then ambulated to therapy gym independently with walker. Once in the gym, pt participated in 15 minutes on arm pulleys without any rest breaks to increase B ROM and endurance needed for ADLs and functional activities. Pt. in therapy gym with PT at the end of the session. All needs met. Education OT Patient Education: Correct positioning, Energy conservation, Modified ADL techniques, Progress toward Goal/Update tx plan, Purpose of tx/functional activities, Reviewed precautions, Rehab process, Safety issues, Transfer techniques Teaching Recipient: Patient Teaching Methods: Demonstration, Discussion Response to Teaching: Verbalize Understanding, Return Demonstration OT [place] Goals Keysmith Goals Time Frame: May 20, 2020 Eating (QC): 6 Oral Hygiene (QC): 6 Toileting Hygiene (QC): 6 Shower/Bathe Self (QC): 6 Upper Body Dressing (QC): 6 Lower Body Dressing (QC): 6 On/Off Footwear (QC): 6 Additional Goals: 1-Demonstrate ADL Tasks, 2-Verbalize Understanding, 3- ImproveStrength/Varun 1=Demonstrate adherence to instructed precautions during ADL tasks. 2=Patient will verbalize/demonstrate understanding of assistive devices/modific ations for ADL. 3=Patient will improve strength/tolerance for activity to enable patient to perform ADL's. OT Education/Plan Problem List/Assessment Assessment: Decreased Activ Tolerance, Decreased UE Strength Discharge Recommendations Plan/Recommendations: Continue POC Therapy Discharge Recommendati: Home & Family Equpiment Recommendations-D/C: Rails on Tub/Shower, Rails on Toilet Treatment Plan/Plan of Care Treatment,Training & Education: Yes Patient would benefit from OT for education, treatment and training to promote independence in ADL's, mobility, safety and/or upper extremity function for ADL's. Plan of Care: ADL Retraining, Functional Mobility, Group Exercise/Act as Ind, UE Funct Exercise/Act Treatment Duration: May 20, 2020 Frequency: At least 5 of 7 days/Wk (IRF) Estimated Hrs Per Day: 1.5 hours per day Agreement: Yes Rehab Potential: Good Time/GCodes Start Time: 13:00 Stop Time: 13:30 Total Time Billed (hr/min): 30 Billed Treatment Time 1, ADL (15 minutes), EX (15 minutes) ERIK KIMBALL OT May 07, 2020 14:08
--- NOTE | 2020-05-07 14:10 | Physical Therapy Daily Note ---
PT Daily Note-Current Subjective Agrees to PT. Wants to go home tomorrow. Wants to try walking with his cane. Mental Status Patient Orientation: Person, Place, Time, Situation Transfers SCALE: Activities may be completed with or without assistive devices. 2-Ndkuavkfau-besnonq completes the activity by him/herself with no assistance from a helper. 5-Set-up or Clean-up Assistance-helper sets up or cleans up; patient completes activity. [place] assists only prior to or following the activity. 4-Supervision or Touching Assistance-helper provides verbal cues and/or touching/steadying and/or contact guard assistance as patient completes activity. Assistance may be provided throughout the activity or intermittently. 3-Partial/Moderate Assistance-helper does LESS THAN HALF the effort. [place] lifts, holds or supports trunk or limbs, but provides less than half the effort. 2-Substantial/Maximal Assistance-helper does MORE THAN HALF the effort. [place] lifts or holds trunk or limbs and provides more than half the effort. 1-Cspdzqozk-hzvrrv does ALL the effort. Patient does none of the effort to complete the activity. Or, the assistance of 2 or more helpers is required for the patient to complete the activity. If activity was not attempted, code reason: 7-Patient Refused. 9-Not Applicable-not attempted and the patient did not perform the activity before the current illness, exacerbation or injury. 10-Not Attempted due to Environmental Limitations-(lack of equipment, weather restraints, etc.). 88-Not Attempted due to Medical Conditions or Safety Concerns. Treatments Pt rode nu step x15 minutes to promote LE strength and functional activity tolerance for ambulation to return home. Functional gait training with FWW and then with cane. SBA with walker 200 ft x 2 and CGA with cane 200 ft x 2. Slightly unsteady with use of cane. Forward flexed gait pattern. Assessment Current Status: Good Progress unsteady with cane and requires CGA. PT Residential Goals Table Games Supervisor Goals PT Table Games Supervisor Goals Time Frame: May 21, 2020 Roll Left & Right (QC): 6 Sit to Lying (QC): 6 Lying-Sitting on Side/Bed(QC): 6 Sit to Stand (QC): 6 Chair/Xrt-tv-Zkrpw Xfer(QC): 6 Toilet Transfer (QC): 6 Car Transfer (QC): 6 Does the Patient Walk: Yes Walk 10 feet (QC): 6 Walk 50ft with 2 Turns (QC): 6 Walk 150 ft (QC): 6 Walking 10ft on Uneven Surface: 6 1 Step (curb) (QC): 6 4 Steps (QC): 6 12 Steps (QC): 9 Picking up an Object (QC): 4 Does the Pt use WC or Scooter?: No Wheel 50 feet with 2 turns (QC: 9 Wheel 150 feet: 9 PT Plan Problem List Problem List: Activity Tolerance, Functional Strength, Safety Treatment/Plan Treatment Plan: Continue Plan of Care Treatment Plan: Bed Mobility, Education, Functional Activity Varun, Functional Strength, Group Therapy, Gait, Safety, Therapeutic Exercise, Transfers Treatment Duration: May 21, 2020 Frequency: At least 5 of 7 days/Wk (IRF) Estimated Hrs Per Day: 1.5 hours per day Patient and/or Family Agrees t: Yes Time/GCodes Time In: 1400 Time Out: 1438 Total Billed Treatment Time: 38 Total Billed Treatment visit EX 15 GT 23 MARISA ECHEVERRIA PT May 07, 2020 14:10
--- NOTE | 2020-05-07 14:40 | NUR ---
Pt is Tenriism. Ornamental Ironworker provided prayer and Communion.
[2020-05-07 16:00] VITALS: BP 106/64
--- NOTE | 2020-05-07 18:08 | Cardiology Progress Note ---
Cardiology SOAP Progress Note Subjective: No cardiac complaints. Objective: I&O/Vital Signs Weight (Pounds): 191 Weight (Ounces): 5.0 Weight (Calculated Kilograms): [id number] Constitutional: AAO x 3 Respiratory: chest is bilaterally symmetric, lungs clear to auscultation Cardiovascular: regular rate-rhythm, S1 and S2 Gastrointestional: soft, audible bowel sounds Extremities: normal range of motion, non-tender, normal inspection, no lower extremity edema bilateral Neurologic/Psychiatric: no motor/sensory deficits, alert, normal mood/affect, oriented x 3 A/P: Assessment/Dx: Non-STEMI Plan: Coronary angiography done on 05/05/2020 shows patent bypass graft, BAILEY to the LAD, SVG to OM 2, SVG to right PDA. One SVG is occluded. 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 No PCI done. Continue medical therapy. Long-term aspirin and Plavix. Echo of 05/04/20: LVEF 55-65%, grade 1 carr dysfunction, mod LA enlargement, estimated PASP 30 mmHg Hypertension Hyperlipidemia GERD H/o prostate cancer, treated with hormone therapy that is managed by Dr Cruz Gen weakness and debility Thank you for your consultation. Please call me if you have any questions. Alina Baig MD, FACP, FACC, FSCAI, FHRS, CCDS Interventional Cardiology Cardiac Electrophysiology Vascular Medicine and Endovascular Interventions Mariaelena BAIG MD May 07, 2020 18:08
[2020-05-07] MEDS: polyethylene glycoL POWDER 17 GM (MIRALAX) PACK PO SCH (19:23)
[2020-05-07] MEDS: SENNA W/DOCUSATE (SENOKOT S) TABLET PO SCH ×2 (19:23→20:43)
[2020-05-07] MEDS: FINASTERIDE (PROSCAR) 5 MG TAB PO SCH (20:35)
[2020-05-07] MEDS: SIMvastatin 40 MG (ZOCOR) TAB PO SCH (20:35)
[2020-05-07] MEDS: meTOprolol TARTRATE 25 MG (LOPRESSOR) TABLET PO SCH (20:36)
[2020-05-07] MEDS: ALPRAZolam 0.5 MG (XANAX) TAB PO PRN (20:36)
[2020-05-07] MEDS: DOCUSATE SODIUM 100 MG (COLACE) CAP PO SCH (20:43)
[2020-05-08 05:51] LABS: BASOPHILS % (AUTO) 0 % (0-10); EOSINOPHILS # (AUTO) 0.3 10^3/uL (0.0-0.3); EOSINOPHILS % (AUTO) 5 % (0-10); HEMATOCRIT 36 % (40-54); LYMPHOCYTES # (AUTO) 1.2 X 10^3 (1.0-4.0); LYMPHOCYTES % (AUTO) 18 % (12-44); MEAN CORPUSCULAR HEMOGLOBIN 30 PG (25-34); MEAN CORPUSCULAR HGB CONC 34 G/DL (32-36); MEAN CORPUSCULAR VOLUME 89 FL (80-99); MEAN PLATELET VOLUME 10.2 FL (7.4-10.4); MONOCYTES # (AUTO) 0.7 X 10^3 (0.0-1.0); MONOCYTES % (AUTO) 11 % (0-12); NEUTROPHILS # (AUTO) 4.4 X 10^3 (1.8-7.8); NEUTROPHILS % (AUTO) 67 % (42-75); PLATELET COUNT 199 10^3/uL (130-400); RED CELL DISTRIBUTION WIDTH 12.9 % (10.0-14.5); WHITE BLOOD COUNT 6.6 10^3/uL (4.3-11.0)
[2020-05-08 06:12] LABS: BILIRUBIN,TOTAL 0.4 MG/DL (0.1-1.0); CALCIUM 9.1 MG/DL (8.5-10.1); CREATININE SERUM 1.71 MG/DL (0.60-1.30); POTASSIUM 4.3 MMOL/L (3.6-5.0); TOTAL PROTEIN 6.1 GM/DL (6.4-8.2)
[2020-05-08 06:33] VITALS: BP 104/57
[2020-05-08 06:35] LABS: ALBUMIN 3.2 GM/DL (3.2-4.5)
[2020-05-08 08:00] VITALS: BP 109/62
[2020-05-08] MEDS: PANTOPRAZOLE 40 MG (PROTONIX) TAB PO SCH (08:46)
[2020-05-08] MEDS: ASPIRIN E.C. 81 MG (ECOTRIN) TAB PO SCH (08:46)
[2020-05-08] MEDS: CLOPIDOGREL 75 MG (PLAVIX) TABLET PO SCH (08:46)
[2020-05-08] MEDS: meTOprolol TARTRATE 25 MG (LOPRESSOR) TABLET PO SCH ×2 (08:46→20:30)
[2020-05-08] MEDS: DOCUSATE SODIUM 100 MG (COLACE) CAP PO SCH ×2 (08:49→20:22)
[2020-05-08] MEDS: polyethylene glycoL POWDER 17 GM (MIRALAX) PACK PO SCH ×2 (08:50→20:23)
[2020-05-08] MEDS: SENNA W/DOCUSATE (SENOKOT S) TABLET PO SCH ×2 (08:50→20:22)
--- NOTE | 2020-05-08 10:23 | Occupational Ther Daily Note ---
OT Current Status-Daily Note Subjective Pt seated in recliner, stating he is wanting to return home today. He feels like he is at his PLOF. Mental Status/Objective Patient Orientation: Person, Normal For Age ADL-Treatment Therapy Code Descriptions/Definitions Functional [place] Measure: 0=Not Assessed/NA 4=Minimal Assistance 1=Total Assistance 5=Supervision or Setup 2=Maximal Assistance 6=Modified [place] 3=Moderate Assistance 7=Complete IndependenceSCALE: Activities may be completed with or without assistive devices. 2-Nysjeheotq-tvgbgga completes the activity by him/herself with no assistance from a helper. 5-Set-up or Clean-up Assistance-helper sets up or cleans up; patient completes activity. [place] assists only prior to or following the activity. 4-Supervision or Touching Assistance-helper provides verbal cues and/or touching/steadying and/or contact guard assistance as patient completes activity. Assistance may be provided throughout the activity or intermittently. 3-Partial/Moderate Assistance-helper does LESS THAN HALF the effort. [place] lifts, holds or supports trunk or limbs, but provides less than half the effort. 2-Substantial/Maximal Assistance-helper does MORE THAN HALF the effort. [place] lifts or holds trunk or limbs and provides more than half the effort. 0-Fafsqchol-xdlrqf does ALL the effort. Patient does none of the effort to complete the activity. Or, the assistance of 2 or more helpers is required for the patient to complete the activity. If activity was not attempted, code reason: 7-Patient Refused. 9-Not Applicable-not attempted and the patient did not perform the activity before the current illness, exacerbation or injury. 10-Not Attempted due to Environmental Limitations-(lack of equipment, weather restraints, etc.). 88-Not Attempted due to Medical Conditions or Safety Concerns. Eating (QC): 6 (Pt reports no difficulty with feeding.) Oral Hygiene (QC): 6 (Independent standing at sink) Shower/Bathe Self (QC): 5 (set up, pt able to wash/dry all parts with increased time.) Upper Body Dressing (QC): 6 (IND don/doff truss puller helper shirt.) Lower Body Dressing (QC): 6 (IND doffed underwear, donned underwear, pants, and belt.) On/Off Footwear: 6 (IND doffing/donning socks and shoes.) Toileting Hygiene (QC): 6 (Pt able to complete hygiene and clothing management.) Toilet Transfer (QC): 6 (IND using GBs and SPC) Pt required increased time with all ADLS. Other Treatment Pt seated at recliner, stating he is wanting to discharge today. Pt stood from recliner, ambulating to toilet using SPC wtih SBA. Pt completed toileting and then transferred to SC. Pt washed/dried all parts, then transferred back to toilet to complete dressing. Pt then stood at sink for oral care before returning to the recliner. Post OT tx, pt seated in recliner, call light in reach and all needs met. Education OT Patient Education: Correct positioning, Energy conservation, Modified ADL techniques, Progress toward Goal/Update tx plan, Purpose of tx/functional activities, Safety issues, Transfer techniques Teaching Recipient: Patient Teaching Methods: Discussion Response to Teaching: Verbalize Understanding OT Marble Installer Supervisor Goals Fpc Goals Time Frame: May 20, 2020 Eating (QC): 6 Oral Hygiene (QC): 6 Toileting Hygiene (QC): 6 Shower/Bathe Self (QC): 6 Upper Body Dressing (QC): 6 Lower Body Dressing (QC): 6 On/Off Footwear (QC): 6 Additional Goals: 1-Demonstrate ADL Tasks, 2-Verbalize Understanding, 3- ImproveStrength/Varun 1=Demonstrate adherence to instructed precautions during ADL tasks. 2=Patient will verbalize/demonstrate understanding of assistive devices/modifications for ADL. 3=Patient will improve strength/tolerance for activity to enable patient to perform ADL's. OT Education/Plan Problem List/Assessment Assessment: Decreased Activ Tolerance, Decreased UE Strength, Impaired I ADL's Discharge Recommendations Plan/Recommendations: Continue POC Treatment Plan/Plan of Care Patient would benefit from OT for education, treatment and training to promote independence in ADL's, mobility, safety and/or upper extremity function for ADL's. Plan of Care: ADL Retraining, Functional Mobility, Group Exercise/Act as Ind, UE Funct Exercise/Act Treatment Duration: May 20, 2020 Frequency: At least 5 of 7 days/Wk (IRF) Estimated Hrs Per Day: 1.5 hours per day Agreement: Yes Rehab Potential: Good Time/GCodes Start Time: 09:00 Stop Time: 10:00 Total Time Billed (hr/min): 60 Billed Treatment Time 1, ADL 4 MIRANDA BANKS OT May 08, 2020 10:23
--- NOTE | 2020-05-08 10:29 | Individualized Plan of Care ---
Individualized Plan of Care Rehab Nursing IPOC Order Admission Date May 06, 2020 at 10:20 Current Orders Orders Cbc With Automated Diff (05/08/20 06:00) Comprehensive Metabolic Panel (05/08/20 06:00) Admission Order(Inpt,Obs,Sdc) (05/07/20 09:41) Vital Signs: Per Unit Policy ( 08,16,00 (05/07/20 09:41) Claudio Hose 09,21 (05/07/20 09:41) Sequential Compression Device Q4H (05/07/20 09:41) Marble Polisher-Inpt Rehab Con (05/07/20 09:41) Rehab Nursing Orders-Ipoc (05/07/20 09:41) Physical Therapy Rehab Orders (05/07/20 09:41) Occupational Therapy Rehab Ord (05/07/20 09:41) Speech Therapy Rehab Orders (05/07/20 09:41) General/Regular (05/07/20 Lunch) Intake & Output 06,14,22 (05/07/20 09:41) Precautions (Aru) (05/07/20 09:41) Weekly Weight WEEK (05/07/20 09:41) Rehab-Intensity Of Therapy (05/07/20 09:41) Initiate Admission Nursing Pro .admission (05/07/20 09:41) Acetaminophen Tablet (Tylenol Tablet) (05/07/20 09:45) Calcium Carbonate Chew Tablet (Antacid C (05/07/20 09:45) Diphenhydramine Tablet (Benadryl Tablet) (05/07/20 09:45) Docusate Sodium Capsule (Colace Capsule) (05/07/20 21:00) Docusate Sodium Capsule (Colace Capsule) (05/07/20 09:45) Bisacodyl Suppository (Dulcolax Supposit (05/07/20 09:45) Lactulose Oral Solution (Enulose Oral So (05/07/20 09:45) Na Phos/Na Biphos Enema (Fleet Enema [place] (05/07/20 09:45) Guaifenesin/Codeine Syrup (Robitussin Ac (05/07/20 09:45) Loperamide Tablet (Imodium Tablet) (05/07/20 09:45) Melatonin Tablet (Melatonin Tablet) (05/07/20 09:45) Polyethylene Glycol Powder Pkt (Miralax (05/07/20 21:00) Ondansetron Injection (Zofran Injectio (05/07/20 09:45) Ondansetron Oral Dissolve Tab (Zofran (05/07/20 09:45) Senna S Tablet (Senokot S Tablet) (05/07/20 21:00) Initiate Admission Nursing Pro .admission (05/07/20 09:41) Consult Cardiology (05/07/20 10:12) Metoprolol Tartrate (Ir) Tab (Lopressor (05/07/20 21:00) Nitroglycerin 0.4 Mg Btl 25's (Nitrostat (05/07/20 13:15) Aspirin Enteric Coated Tablet (Ecotrin T (05/08/20 09:00) Morphine Injection (Morphine Injection (05/07/20 13:15) Alprazolam Tablet (Xanax Tablet) (05/07/20 13:15) Pantoprazole Tablet (Protonix Tablet) (05/08/20 09:00) Simvastatin Tablet (Zocor Tablet) (05/07/20 21:00) Finasteride Tablet (Proscar Tablet) (05/07/20 21:00) Clopidogrel Tablet (Plavix Tablet) (05/08/20 09:00) Acetaminophen Tablet/Caplet (Tylenol T (05/07/20 13:15) Clopidogrel Tablet (Plavix Tablet) (05/07/20 13:13) Pantoprazole Tablet (Protonix Tablet) (05/07/20 13:13) Aspirin Enteric Coated Tablet (Ecotrin T (05/07/20 13:13) Patient Visit (05/07/20 ) Exercise Therap, Ea 15 Min (05/07/20 ) Gait Training, Ea 15 Min (05/07/20 ) Patient Visit (05/07/20 ) Exercise Therap, Ea 15 Min (05/07/20 ) Gait Training, Ea 15 Min (05/07/20 ) Patient Visit (05/06/20 ) Gait Training, Ea 15 Min (05/06/20 ) Exercise Therap, Ea 15 Min (05/06/20 ) Patient Visit (05/06/20 ) Pt Eval Moderate Complexity (05/06/20 ) Functional Activities, Ea 15 (05/06/20 ) Ex Neuromuscular, Ea 15 Min (05/06/20 ) Enoxaparin Injection (Lovenox Injection) (05/08/20 16:00) Ns Iv 1000 Ml (Sodium Chloride 0.9%) (05/08/20 11:00) Basic Metabolic Panel (05/09/20 06:00) Patient Visit (05/08/20 ) Functional Activities, Ea 15 (05/08/20 ) Exercise Therap, Ea 15 Min (05/08/20 ) Patient Visit (05/08/20 ) Rehab Nursing Orders: Ongoing Assess. of Cognitive Status, Ongoing Assess. of Function Status, Bladder Management, Bladder Scan, Bladder Training, Bowel Management, Bowel Training, Disease Management & Educaiton, DVT Prophylaxis, Fall Prevention, Fluid/Electrolyte/Nutrition Mgmt, Infection Prevention, Medication Management & Education, Management of Risks & Complications, Management of Skin Intergrity, Nutrition Management, Pain Management, Patient/Family Support, Safety Management Intensity of Therapy to be met Patient to be seen: Min.3h per day/5 of 7d PT IPOC Problem List: Activity Tolerance, Functional Strength, Safety Treatment Plan: Continue Plan of Care Bed Mobility, Education, Functional Activity Varun, Functional Strength, Group Therapy, Gait, Safety, Therapeutic Exercise, Transfers Treatment Duration: May 21, 2020 Frequency: At least 5 of 7 days/Wk (IRF) Estimated Hrs Per Day: 1.5 hours per day OT IPOC Problems: Decreased Activ Tolerance, Decreased UE Strength, Impaired I ADL's OT Treatment, Training and Edu: Yes Plan of Care: ADL Retraining, Functional Mobility, Group Exercise/Act as Ind, UE Funct Exercise/Act Treatment Duration: May 20, 2020 Frequency: At least 5 of 7 days/Wk (IRF) Estimated Hrs Per Day: 1.[address] IPOC Speech Therapy Treatment Plan: Discontinue ST Treatment Duration: May 08, 2020 Frequency: Modified Program (IRF) Estimated Hrs Per Day: Other Marble Polisher/Case Mgmt Marble Polisher/Case Managemen: Discharge Planning Dietitian/Agile Java Developer Dietitian/Agile Java Developer to monitor nutritional status and make changes and/or recommendations as needed and work with speech pathology on dietary upgrades as the occur. Physician IPOC Medical Issues being managed closely and that require the 24 hour availability of a physician: Recent cardiac event from small vessel disease and now rising creatinine and recent weight loss and more fragile status will require close monitoring for decompensation Medical Issues: Bowel/Bladder Function, DVT Prophylaxis, Falls Precautions, Fluid/Electrolyte/Nutrition Balance, Infection Protection, Pain Management Brief Synthesis of Preadmission Screen, Post-Admission Evaluation, and Therapy Evaluations: PT OT will focus on regaining strength and mobility while maintaining energy conservation Medical Prognosis: Good Anticipated Length of Stay: 7 days LORIE GARCIA DO May 08, 2020 10:29
--- NOTE | 2020-05-08 10:29 | PM&R Progress Note ---
Subjective HPI/CC On Admission Date Seen by Provider: May 08, 2020 Time Seen by Provider: 10:30 Subjective/Events-last exam 05/08/20: Creatinine increased to 1.7 and he is not drinking well and weight loss discuss ed so will start gentle IVF Cardiology monitoring status Talked about angina and NTG DC Tely Decreased Metoprolol due to hypotension BP 100/70 Will likely discontinue telemetry if okay by cardiology Gout pain in his feet is now gone Constipation still continues so will go ahead and give suppository and Lactulose No nausea or vomiting Checked meds and labs Reviewed therapy notes Conferred with mathematics instructor of Systems General: Fatigue, Malaise Cardiovascular: Chest Pain Objective Exam Vital Signs Vital Signs Date Time Temp Pulse Resp B/P (MAP) Pulse Ox O2 Delivery O2 Flow Rate FiO2 05/08/20 16:00 36.0 80 16 121/58 (79) 96 Room Air Capillary Refill : Less Than 3 Seconds General Appearance: No Apparent Distress, WD/WN, Chronically ill, Thin HEENT: PERRL/EOMI, Normal ENT Inspection, Pharynx Normal Neck: Full Range of Motion, Normal Inspection, Non Tender, Supple, Carotid Bruit Respiratory: Chest Non Tender, Lungs Clear, Normal Breath Sounds, No Accessory Muscle Use, No Respiratory Distress, Decreased Breath Sounds Cardiovascular: Regular Rate, Rhythm, No Edema, No Gallop, No JVD, No Murmur, Normal Peripheral Pulses Gastrointestinal: Normal Bowel Sounds, No Organomegaly, No Pulsatile Mass, Non Tender, Soft Back: Normal Inspection, No CVA Tenderness, No Vertebral Tenderness Extremity: Normal Capillary Refill, Normal Inspection, Normal Range of Motion, Non Tender, No Calf Tenderness, No Pedal Edema Neurologic/Psychiatric: Alert, Oriented x3, No Motor/Sensory Deficits (generalized weakness all extremities), Normal 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 FIM Transfers Therapy Code Descriptions/Definitions Functional [place] Measure: 0=Not Assessed/NA 4=Minimal Assistance 1=Total Assistance 5=Supervision or Setup 2=Maximal Assistance 6=Modified [place] 3=Moderate Assistance 7=Complete IndependenceSCALE: Activities may be completed with or without assistive devices. 4-Cnhbptaqiv-vtvvwch completes the activity by him/herself with no assistance from a helper. 5-Set-up or Clean-up Assistance-helper sets up or cleans up; patient completes activity. [place] assists only prior to or following the activity. 4-Supervision or Touching Assistance-helper provides verbal cues and/or t ouching/steadying and/or contact guard assistance as patient completes activity. Assistance may be provided throughout the activity or intermittently. 3-Partial/Moderate Assistance-helper does LESS THAN HALF the effort. [place] lifts, holds or supports trunk or limbs, but provides less than half the effort. 2-Substantial/Maximal Assistance-helper does MORE THAN HALF the effort. [place] lifts or holds trunk or limbs and provides more than half the effort. 2-Xdvdjnnrz-hvrobh does ALL the effort. Patient does none of the effort to complete the activity. Or, the assistance of 2 or more helpers is required for the patient to complete the activity. If activity was not attempted, code reason: 7-Patient Refused. 9-Not Applicable-not attempted and the patient did not perform the activity before the current illness, exacerbation or injury. 10-Not Attempted due to Environmental Limitations-(lack of equipment, weather restraints, etc.). 88-Not Attempted due to Medical Conditions or Safety Concerns. Sit to Stand (QC): 4 (SBA for safety) Gait Training Does the Patient Walk?: Yes Walk 10 feet (QC): 4 Walk 50 ft with 2 Turns(QC): 4 Walk 150 ft (QC): 4 Gait Assistive Device: FWW Stair Training 4 Steps (QC): 3 (CGA for safety) ADL-Treatment Eating (QC): 6 (Pt reports no difficulty with feeding.) Oral Hygiene (QC): 6 (Independent standing at sink) Shower/Bathe Self (QC): 5 (set up, pt able to wash/dry all parts with increased time.) Upper Body Dressing (QC): 6 (IND don/doff dross puller shirt.) Lower Body Dressing (QC): 6 (IND doffed underwear, donned underwear, pants, and belt.) On/Off Footwear (QC): 6 (IND doffing/donning socks and shoes.) Toileting Hygiene (QC): 6 (Pt able to complete hygiene and clothing management.) Toilet Transfer (QC): 6 (IND using GBs and SPC) Assessment/Plan Assessment and Plan Assess & Plan/Chief Complaint Assessment: Debility from cardiac causes CAD CABG hx HTN HLP COVID negative CRI Plan: IRF protocol Monitor pain O2 eval Telemetry 05/07/20: Tely DC? Monitor O2 sat Monitor for pain 05/08/20: ARF addressed with gentle IVF Monitor angina (1) Debility (2) Chest pain on exertion Status: Acute (3) Coronary artery disease Status: Acute (4) GERD (gastroesophageal reflux disease) Status: Chronic (5) HTN (hypertension) Status: Chronic (6) HLD (hyperlipidemia) Status: Chronic (7) Elevated troponin Status: Acute (8) BPH (benign prostatic hyperplasia) Status: Chronic LORIE GARCIA DO May 08, 2020 10:29
--- NOTE | 2020-05-08 11:49 | Physical Therapy Daily Note ---
PT Daily Note-Current Subjective Patient agrees to PT and reports he wants to go home soon. Physician in to assess. Mental Status Patient Orientation: Normal For Age Transfers SCALE: Activities may be completed with or without assistive devices. 5-Qeuxfymrdo-mfhaxxy completes the activity by him/herself with no assistance from a helper. 5-Set-up or Clean-up Assistance-helper sets up or cleans up; patient completes activity. [place] assists only prior to or following the activity. 4-Supervision or Touching Assistance-helper provides verbal cues and/or touching/steadying and/or contact guard assistance as patient completes activity. Assistance may be provided throughout the activity or intermittently. 3-Partial/Moderate Assistance-helper does LESS THAN HALF the effort. [place] lifts, holds or supports trunk or limbs, but provides less than half the effort. 2-Substantial/Maximal Assistance-helper does MORE THAN HALF the effort. [place] lifts or holds trunk or limbs and provides more than half the effort. 2-Fsynyaxov-teuevn does ALL the effort. Patient does none of the effort to complete the activity. Or, the assistance of 2 or more helpers is required for the patient to complete the activity. If activity was not attempted, code reason: 7-Patient Refused. 9-Not Applicable-not attempted and the patient did not perform the activity before the current illness, exacerbation or injury. 10-Not Attempted due to Environmental Limitations-(lack of equipment, weather restraints, etc.). 88-Not Attempted due to Medical Conditions or Safety Concerns. Sit to Stand (QC): 6 patient toileted self without difficulty Gait Training Does the Patient Walk?: Yes Distance: 500' x 2/300' x 2/200' x 2 Walk 10 feet (QC): 6 Walk 50 ft with 2 Turns(QC): 6 Walk 150 ft (QC): 6 Walking 10ft/uneven surface-QC: 6 Gait Assistive Device: Cane Single Point kyphotic posture/functional gait sequence Stair Training Stair Training: Handrails/: No handrail, uses cane #of Steps: 3 1 Step (curb) (QC): 6 Stairs: Pattern: Step to Balance Picking up an Object (QC): 6 Exercises Seated Therapy Exercises: Ankle pumps, Long arc quads, Hip flexion Seated Reps: 15 Standing: Marching, Mini squats Standing Reps: 20 Assessment Patient requires recovery periods due to slight fatigue and age. Plan dismissal 05/11/20 per physician. PT Snf Goals Dispensing Audiologist Goals PT Snf Goals Time Frame: May 21, 2020 Roll Left & Right (QC): 6 Sit to Lying (QC): 6 Lying-Sitting on Side/Bed(QC): 6 Sit to Stand (QC): 6 Chair/Qtr-vf-Ygmkh Xfer(QC): 6 Toilet Transfer (QC): 6 Car Transfer (QC): 6 Does the Patient Walk: Yes Walk 10 feet (QC): 6 Walk 50ft with 2 Turns (QC): 6 Walk 150 ft (QC): 6 Walking 10ft on Uneven Surface: 6 1 Step (curb) (QC): 6 4 Steps (QC): 6 12 Steps (QC): 9 Picking up an Object (QC): 4 Does the Pt use WC or Scooter?: No Wheel 50 feet with 2 turns (QC: 9 Wheel 150 feet: 9 PT Plan Treatment/Plan Treatment Plan: Continue Plan of Care Treatment Plan: Bed Mobility, Education, Functional Activity Varun, Functional Strength, Group Therapy, Gait, Safety, Therapeutic Exercise, Transfers Treatment Duration: May 21, 2020 Frequency: At least 5 of 7 days/Wk (IRF) Estimated Hrs Per Day: 1.5 hours per day Patient and/or Family Agrees t: Yes Time/GCodes Time In: 1040 Time Out: 1140 Total Billed Treatment Time: 60 Total Billed Treatment 1 visit FA x 3 45 min EX 15 min PADDY SULLIVAN PT May 08, 2020 11:48
[2020-05-08] MEDS: NS IV 1000 ML 1,000 ML IV SCH (12:15)
--- NOTE | 2020-05-08 12:36 | NUR ---
CM/SS ADMISSION Patient admitted to ARU 05/06/20 from [facility] OBS post cardiac catheterization for debility. Patient resides at home with his spouse Mally Rodriguez and will return there at discharge. His tentative target discharge is 05/11/20. PCP: Dr. Ramin Ceballos DO, [facility] PHARMACY: [facility] INSURANCE: Medicare, Blue Cross MCR Supplement DME: Patient has FWW for use but routinely uses cane for ambulation. BARRIERS TO DISCHARGE PLAN: None noted. CONTACTS: Mally Rodriguez, Spouse [phone] Domingo Rodriguez, Brother [phone] Patient will not be here for the next Patient Care Conference. He has expressed he is ready to return home as soon as medically released. Mally reports patient has been very selective about any outings due to Covid19 presence. He walks to his brother's house and another neighbor to visit; otherwise, he goes no where. 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 Patient does not want any [facility] services. There are no anticipated discharge interventions unless situation changes to warrant.
--- NOTE | 2020-05-08 14:55 | NUR ---
"RD ASSESSMENT PMHx: CAD; hypercholesterolemia; HTN; diverticulosis; CA(prostate,skin); GERD PT INTERACTION: Pt was awake and pleasant during nutrition assessment. Pt states current appetite is good. Note avg PO intake 50% x3meal, per chart review. Pt states following a regular diet at home, and has no issues with chewing/swallowing food. Pt states no recent issues with nausea, vomiting, constipation, or diarrhea. Note last BM was 05/07, and pt currently on bowel regimen of colace IBD; senna BID; and miralax BID, per chart review. Pt states recent 35# wt loss x6mon. Note unable to determine recent wt hx, per chart review. ABNORMAL NUTRITION-RELATED LAB VALUES LOW: Pro 6.1; HIGH: BUN 43; cr 1.43 Est. kcal needs: 1850 kcal | 25 kcal/kg Est. Pro needs: 59 g Pro | 0.8 g Pro/kg PES STATEMENT: Inadequate oral intake (NI-2.1) related to loss of appetite as evidenced by pt interview | avg PO intake 50% x3meal INTERVENTION: Continue with current diet order of Regular diet. Pt may benefit from nutrition supplementation if PO intake declines. Encouraged pt to eat when able. Will continue to follow and reassess as pt needs, intake, and status change. MONITOR/EVALUATE: PO Intake; Plan of Care; Hydration Status; Weight Status; Lab Values Kameron Pulido, MS, RD, LD"
[2020-05-08 16:00] VITALS: BP 121/58
[2020-05-08] MEDS: ENOXAPARIN 40 MG/0.4 ML (LOVENOX) SYR SC SCH (16:52)
[2020-05-08] MEDS: SIMvastatin 40 MG (ZOCOR) TAB PO SCH (20:23)
[2020-05-08] MEDS: FINASTERIDE (PROSCAR) 5 MG TAB PO SCH (20:23)
[2020-05-08 20:30] VITALS: BP 123/64
[2020-05-08] MEDS: ALPRAZolam 0.5 MG (XANAX) TAB PO PRN (21:17)
--- NOTE | 2020-05-08 22:19 | NUR ---
Tk, akcheryl "Risa" is an 84 yo male patient who admitted to ARU on 05/06 with a debility diagnosis. He is A&O X4 and denies all pain. He does currently have NS running at 70ml/hr due to some noted dehydration on his labs this morning (BUN 43 and Creat 1.71). Patient has been cont. of bowel and bladder and is currently using the urinal to void. No issues noted with patient, this nurse will continue to monitor closely throughout shift.
[2020-05-09] MEDS: NS IV 1000 ML 1,000 ML IV SCH ×3 (01:51→15:43)
[2020-05-09 05:02] VITALS: BP 103/55
[2020-05-09 07:48] LABS: CALCIUM 9.3 MG/DL (8.5-10.1); CREATININE SERUM 1.42 MG/DL (0.60-1.30); POTASSIUM 4.1 MMOL/L (3.6-5.0)
[2020-05-09] MEDS: DOCUSATE SODIUM 100 MG (COLACE) CAP PO SCH ×2 (08:32→20:26)
[2020-05-09] MEDS: polyethylene glycoL POWDER 17 GM (MIRALAX) PACK PO SCH ×2 (08:32→20:27)
[2020-05-09] MEDS: PANTOPRAZOLE 40 MG (PROTONIX) TAB PO SCH (08:33)
[2020-05-09] MEDS: CLOPIDOGREL 75 MG (PLAVIX) TABLET PO SCH (08:33)
[2020-05-09] MEDS: SENNA W/DOCUSATE (SENOKOT S) TABLET PO SCH ×2 (08:33→20:27)
[2020-05-09] MEDS: meTOprolol TARTRATE 25 MG (LOPRESSOR) TABLET PO SCH ×2 (08:33→20:26)
[2020-05-09] MEDS: ASPIRIN E.C. 81 MG (ECOTRIN) TAB PO SCH (08:33)
--- NOTE | 2020-05-09 11:50 | PM&R Progress Note ---
Subjective HPI/CC On Admission Date Seen by Provider: May 09, 2020 Time Seen by Provider: 12:00 Subjective/Events-last exam 05/09/20: Creatinine improved at 1.42 with IVF Increased PO fluids Does not like the chair and bed alarm and getting cranky BM ok 05/08/20: Creatinine increased to 1.7 and he is not drinking well and weight loss discussed so will start gentle IVF Cardiology monitoring status Talked about angina and NTG DC Tely Decreased Metoprolol due to hypotension BP 100/70 Will likely discontinue telemetry if okay by cardiology Gout pain in his feet is now gone Constipation still continues so will go ahead and give suppository and Lactulose No nausea or vomiting Checked meds and labs Reviewed therapy notes Conferred with advertising account manager of Systems General: Fatigue, Malaise Neurological: Weakness Objective Exam Vital Signs Vital Signs Date Time Temp Pulse Resp B/P (MAP) Pulse Ox O2 Delivery O2 Flow Rate FiO2 05/09/20 07:10 Room Air 05/09/20 05:02 36.4 64 15 103/55 (71) 95 Capillary Refill : Less Than 3 SecondsLess Than 3 Seconds General Appearance: No Apparent Distress, WD/WN, Chronically ill, Thin HEENT: PERRL/EOMI, Normal ENT Inspection, Pharynx Normal Neck: Full Range of Motion, Normal Inspection, Non Tender, Supple, Carotid Bruit Respiratory: Chest Non Tender, Lungs Clear, Normal Breath Sounds, No Accessory Muscle Use, No Respiratory Distress, Decreased Breath Sounds Cardiovascular: Regular Rate, Rhythm, No Edema, No Gallop, No JVD, No Murmur, Normal Peripheral Pulses Gastrointestinal: Normal Bowel Sounds, No Organomegaly, No Pulsatile Mass, Non Tender, Soft Back: Normal Inspection, No CVA Tenderness, No Vertebral Tenderness Extremity: Normal Capillary Refill, Normal Inspection, Normal Range of Motion, Non Tender, No Calf Tenderness, No Pedal Edema Neurologic/Psychiatric: Alert, Oriented x3, No Motor/Sensory Deficits (generalized weakness all extremities), Normal 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 FIM Transfers Therapy Code Descriptions/Definitions Functional [place] Measure: 0=Not Assessed/NA 4=Minimal Assistance 1=Total Assistance 5=Supervision or Setup 2=Maximal Assistance 6=Modified [place] 3=Moderate Assistance 7=Complete IndependenceSCALE: Activities may be completed with or without assistive devices. 5-Hlzumcmpgm-gfgzirm completes the activity by him/herself with no assistance from a helper. 5-Set-up or Clean-up Assistance-helper sets up or cleans up; patient completes activity. [place] assists only prior to or following the activity. 4-Supervision or Touching Assistance-helper provides verbal cues and/or touching/steadying and/or contact guard assistance as patient completes activity. Assistance may be provided throughout the activity or intermittently. 3-Partial/Moderate Assistance-helper does LESS THAN HALF the effort. [place] lifts, holds or supports trunk or limbs, but provides less than half the effort. 2-Substantial/Maximal Assistance-helper does MORE THAN HALF the effort. [place] lifts or holds trunk or limbs and provides more than half the effort. 4-Fwnigjwrl-cwuctz does ALL the effort. Patient does none of the effort to complete the activity. Or, the assistance of 2 or more helpers is required for the patient to complete the activity. If activity was not attempted, code reason: 7-Patient Refused. 9-Not Applicable-not attempted and the patient did not perform the activity before the current illness, exacerbation or injury. 10-Not Attempted due to Environmental Limitations-(lack of equipment, weather restraints, etc.). 88-Not Attempted due to Medical Conditions or Safety Concerns. Sit to Stand (QC): 6 Gait Training Does the Patient Walk?: Yes Distance: 500' x 2/300' x 2/200' x 2 Walk 10 feet (QC): 6 Walk 50 ft with 2 Turns(QC): 6 Walk 150 ft (QC): 6 Walking 10ft/uneven surface-QC: 6 Gait Assistive Device: Cane Single Point Stair Training Stair Training: Handrails/: No handrail, uses cane #of Steps: 3 1 Step (curb) (QC): 6 4 Steps (QC): 3 (CGA for safety) Stairs: Pattern: Step to Balance Picking up an Object (QC): 6 ADL-Treatment Eating (QC): 6 (Pt reports no difficulty with feeding.) Oral Hygiene (QC): 6 (Independent standing at sink) Shower/Bathe Self (QC): 5 (set up, pt able to wash/dry all parts with increased time.) Upper Body Dressing (QC): 6 (IND don/doff tree puller shirt.) Lower Body Dressing (QC): 6 (IND doffed underwear, donned underwear, pants, and belt.) On/Off Footwear (QC): 6 (IND doffing/donning socks and shoes.) Toileting Hygiene (QC): 6 (Pt able to complete hygiene and clothing management.) Toilet Transfer (QC): 6 (IND using GBs and SPC) Assessment/Plan Assessment and Plan Assess & Plan/Chief Complaint Assessment: Debility from cardiac causes CAD CABG hx HTN HLP COVID negative CRI Plan: IRF protocol Monitor pain O2 eval Telemetry 05/07/20: Tely DC? Monitor O2 sat Monitor for pain 05/08/20: ARF addressed with gentle IVF Monitor angina 05/09/20: Continue IVF Check labs in am Monitor closely DC Monday (1) Debility (2) Chest pain on exertion Status: Acute (3) Coronary artery disease Status: Acute (4) GERD (gastroesophageal reflux disease) Status: Chronic (5) HTN (hypertension) Status: Chronic (6) HLD (hyperlipidemia) Status: Chronic (7) Elevated troponin Status: Acute (8) BPH (benign prostatic hyperplasia) Status: Chronic LORIE GARCIA DO May 09, 2020 11:50
--- NOTE | 2020-05-09 12:33 | Physical Therapy Daily Note ---
PT Daily Note-Current Subjective No pain per pt, agreeable. Mental Status Patient Orientation: Person, Place, Situation Transfers SCALE: Activities may be completed with or without assistive devices. 1-Ihjapyedni-bmwvqmx completes the activity by him/herself with no assistance from a helper. 5-Set-up or Clean-up Assistance-helper sets up or cleans up; patient completes activity. [place] assists only prior to or following the activity. 4-Supervision or Touching Assistance-helper provides verbal cues and/or touching/steadying and/or contact guard assistance as patient completes activity. Assistance may be provided throughout the activity or intermittently. 3-Partial/Moderate Assistance-helper does LESS THAN HALF the effort. [place] lifts, holds or supports trunk or limbs, but provides less than half the effort. 2-Substantial/Maximal Assistance-helper does MORE THAN HALF the effort. [place] lifts or holds trunk or limbs and provides more than half the effort. 8-Tzkeivvxr-wawcbe does ALL the effort. Patient does none of the effort to complete the activity. Or, the assistance of 2 or more helpers is required for the patient to complete the activity. If activity was not attempted, code reason: 7-Patient Refused. 9-Not Applicable-not attempted and the patient did not perform the activity before the current illness, exacerbation or injury. 10-Not Attempted due to Environmental Limitations-(lack of equipment, weather restraints, etc.). 88-Not Attempted due to Medical Conditions or Safety Concerns. Roll Left & Right (QC): 6 Sit to Lying (QC): 6 Lying to Sitting/Side of Bed(Q: 6 Sit to Stand (QC): 6 Chair/Crq-sc-Pctjb Xfer(QC): 6 Toilet Transfer (QC): 6 Car Transfer (QC): 6 Gait Training Does the Patient Walk?: Yes Walk 150 ft (QC): 6 Walking 10ft/uneven surface-QC: 6 Gait Persons Needed: 1 Gait Assistive Device: Cane Small Base Quad Pt amb 2 x 150ft, CGA with QC Stair Training Stair Training: Handrails/: 1 handrail #of Steps: 12 1 Step (curb) (QC): 6 12 Steps (QC): 6 Stairs: Pattern: Reciprocal Balance Picking up an Object (QC): 6 Treatments Pt stood at toilet to void. Pt also brushed his teeth standing at sink. Assessment Current Status: Good Progress Pt tuyet above well. Good mobility, unsteady at times but no alexander LOB. PT Country Singer Goals Country Singer Goals PT Snf Goals Time Frame: May 21, 2020 Roll Left & Right (QC): 6 Sit to Lying (QC): 6 Lying-Sitting on Side/Bed(QC): 6 Sit to Stand (QC): 6 Chair/Iim-to-[place]afly Xfer(QC): 6 Toilet Transfer (QC): 6 Car Transfer (QC): 6 Does the Patient Walk: Yes Walk 10 feet (QC): 6 Walk 50ft with 2 Turns (QC): 6 Walk 150 ft (QC): 6 Walking 10ft on Uneven Surface: 6 1 Step (curb) (QC): 6 4 Steps (QC): 6 12 Steps (QC): 9 Picking up an Object (QC): 4 Does the Pt use WC or Scooter?: No Wheel 50 feet with 2 turns (QC: 9 Wheel 150 feet: 9 PT Plan Treatment/Plan Treatment Plan: Continue Plan of Care Treatment Plan: Bed Mobility, Education, Functional Activity Varun, Functional Strength, Group Therapy, Gait, Safety, Therapeutic Exercise, Transfers Treatment Duration: May 21, 2020 Frequency: At least 5 of 7 days/Wk (IRF) Estimated Hrs Per Day: 1.5 hours per day Patient and/or Family Agrees t: Yes Time/GCodes Time In: 925 Time Out: 1000 Total Billed Treatment Time: 35 Total Billed Treatment 1, gait x 30', FA x 5' GURJIT QUAN CPTA May 09, 2020 12:33
[2020-05-09] MEDS: ENOXAPARIN 40 MG/0.4 ML (LOVENOX) SYR SC SCH (15:42)
[2020-05-09] MEDS: NITROGLYCERIN 0.4 MG SL TABS BTL 25'S SL PRN ×2 (18:06→20:16)
[2020-05-09 18:09] VITALS: BP 137/78
[2020-05-09 20:15] VITALS: BP 128/64
[2020-05-09 20:20] VITALS: BP 119/63
[2020-05-09 20:25] VITALS: BP 115/62
[2020-05-09] MEDS: SIMvastatin 40 MG (ZOCOR) TAB PO SCH (20:27)
[2020-05-09] MEDS: FINASTERIDE (PROSCAR) 5 MG TAB PO SCH (20:27)
[2020-05-09 21:00] VITALS: BP 105/58
[2020-05-09] MEDS: ALPRAZolam 0.5 MG (XANAX) TAB PO PRN (21:22)
--- NOTE | 2020-05-09 23:01 | NUR ---
Risa is an 84 yo male currently present on ARU due to debility. Patient underwent a heart cath by Dr. Hook which was negative. He was transferred to ARU to regain some strength and improve stamina. Patient has done very well physically with this nurse/this shift. He is able to ambulate CGA/SBA. He was also able to shower this morning set up/supervision. It was reported to this nurse that patient was caught self administering his personal Nitro when he was experiencing chest pain. Day shift nurse confiscated the medication and placed in patients lock box. Pat started reporting slight chest pain at roughly 2009 to this nurse. He was unable to describe chest pain but just stated he was "uncomfortable" and he felt it "here" while pointing to his chest. An EKG was obtained and vitals taken, BP was noted to be 127/65, pulse rate 92. Nitro was administered per PRN protocol. Vitals obtained every five minutes prior to administration and were as followed at 2014 BP was 128/64 pain 7, at 2019 BP was 119/63 pain level 5, at 2024 BP was 115/62 pain level 2, and finally at 2099 BP was 105/58 and no pain noted. Both Dr. Leigh and Dr. Cole were notified and EKG results reviewed, no new orders received. Patient is currently resting in bed with NS running into left forearm IV without issue. Once this bag finishes IV fluids will be complete. BUN and Creat did slightly improve with continuos fluids the last 36 hours. This nurse will continue to monitor patient closely and report any issues/concerns to the correct physician.
[2020-05-10 05:03] VITALS: BP 117/60
[2020-05-10 06:29] LABS: BASOPHILS % (AUTO) 1 % (0-10); EOSINOPHILS # (AUTO) 0.3 10^3/uL (0.0-0.3); EOSINOPHILS % (AUTO) 5 % (0-10); HEMATOCRIT 34 % (40-54); HEMOGLOBIN 11.2 G/DL (13.3-17.7); LYMPHOCYTES # (AUTO) 1.7 X 10^3 (1.0-4.0); LYMPHOCYTES % (AUTO) 27 % (12-44); MEAN CORPUSCULAR HEMOGLOBIN 30 PG (25-34); MEAN CORPUSCULAR HGB CONC 33 G/DL (32-36); MEAN CORPUSCULAR VOLUME 91 FL (80-99); MEAN PLATELET VOLUME 10.1 FL (7.4-10.4); MONOCYTES # (AUTO) 0.8 X 10^3 (0.0-1.0); MONOCYTES % (AUTO) 12 % (0-12); NEUTROPHILS # (AUTO) 3.5 X 10^3 (1.8-7.8); NEUTROPHILS % (AUTO) 55 % (42-75); PLATELET COUNT 238 10^3/uL (130-400); RED CELL DISTRIBUTION WIDTH 13.3 % (10.0-14.5); WHITE BLOOD COUNT 6.4 10^3/uL (4.3-11.0)
[2020-05-10 06:51] LABS: ALANINE AMINOTRANSFERASE 9 U/L (0-55); ALBUMIN 3.1 GM/DL (3.2-4.5); ALKALINE PHOSPHATASE 48 U/L (40-136); BILIRUBIN,TOTAL 0.4 MG/DL (0.1-1.0); BUN/CREATININE RATIO 22; CALCIUM 8.8 MG/DL (8.5-10.1); CARBON DIOXIDE 22 MMOL/L (21-32); CHLORIDE 110 MMOL/L (98-107); CREATININE SERUM 1.08 MG/DL (0.60-1.30); GFR ESTIMATED > 60; GLUCOSE 92 MG/DL (70-105); POTASSIUM 4.1 MMOL/L (3.6-5.0); SODIUM 142 MMOL/L (135-145); TOTAL PROTEIN 5.9 GM/DL (6.4-8.2)
[2020-05-10] MEDS: meTOprolol TARTRATE 25 MG (LOPRESSOR) TABLET PO SCH ×2 (09:43→20:13)
[2020-05-10] MEDS: ASPIRIN E.C. 81 MG (ECOTRIN) TAB PO SCH (09:43)
[2020-05-10] MEDS: SENNA W/DOCUSATE (SENOKOT S) TABLET PO SCH ×2 (09:43→20:13)
[2020-05-10] MEDS: PANTOPRAZOLE 40 MG (PROTONIX) TAB PO SCH (09:44)
[2020-05-10] MEDS: DOCUSATE SODIUM 100 MG (COLACE) CAP PO SCH ×2 (09:44→20:13)
[2020-05-10] MEDS: polyethylene glycoL POWDER 17 GM (MIRALAX) PACK PO SCH ×2 (09:44→19:21)
[2020-05-10] MEDS: CLOPIDOGREL 75 MG (PLAVIX) TABLET PO SCH (09:44)
--- NOTE | 2020-05-10 10:45 | PM&R Progress Note ---
Subjective HPI/CC On Admission Date Seen by Provider: May 10, 2020 Time Seen by Provider: 10:45 Subjective/Events-last exam 05/10/20: Patient had chest pain last evening and used his own NTG SL so Cardiology was c onsulted EKG obtained at bedside 05/09/20: Creatinine improved at 1.42 with IVF Increased PO fluids Does not like the chair and bed alarm and getting cranky BM ok 05/08/20: Creatinine increased to 1.7 and he is not drinking well and weight loss discussed so will start gentle IVF Cardiology monitoring status Talked about angina and NTG DC Tely Decreased Metoprolol due to hypotension BP 100/70 Will likely discontinue telemetry if okay by cardiology Gout pain in his feet is now gone Constipation still continues so will go ahead and give suppository and Lactulose No nausea or vomiting Checked meds and labs Reviewed therapy notes Conferred with land lease information clerk of Systems General: Fatigue, Malaise Cardiovascular: Chest Pain Neurological: Weakness, Numbness, Incoordination Objective Exam Vital Signs Vital Signs Date Time Temp Pulse Resp B/P (MAP) Pulse Ox O2 Delivery O2 Flow Rate FiO2 05/10/20 09:00 Room Air 05/10/20 05:03 36.8 76 15 117/60 (79) 98 Capillary Refill : Less Than 3 SecondsLess Than 3 Seconds General Appearance: No Apparent Distress, WD/WN, Chronically ill, Thin HEENT: PERRL/EOMI, Normal ENT Inspection, Pharynx Normal Neck: Full Range of Motion, Normal Inspection, Non Tender, Supple, Carotid Bruit Respiratory: Chest Non Tender, Lungs Clear, Normal Breath Sounds, No Accessory Muscle Use, No Respiratory Distress, Decreased Breath Sounds Cardiovascular: Regular Rate, Rhythm, No Edema, No Gallop, No JVD, No Murmur, Normal Peripheral Pulses Gastrointestinal: Normal Bowel Sounds, No Organomegaly, No Pulsatile Mass, Non Tender, Soft Back: Normal Inspection, No CVA Tenderness, No Vertebral Tenderness Extremity: Normal Capillary Refill, Normal Inspection, Normal Range of Motion, Non Tender, No Calf Tenderness, No Pedal Edema Neurologic/Psychiatric: Alert, Oriented x3, No Motor/Sensory Deficits (generalized weakness all extremities), Normal Mood/Affect, 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 FIM Transfers Therapy Code Descriptions/Definitions Functional [place] Measure: 0=Not Assessed/NA 4=Minimal Assistance 1=Total Assistance 5=Supervision or Setup 2=Maximal Assistance 6=Modified [place] 3=Moderate Assistance 7=Complete IndependenceSCALE: Activities may be completed with or without assistive devices. 0-Gbkzzgcesm-sjeyuys completes the activity by him/herself with no assistance from a helper. 5-Set-up or Clean-up Assistance-helper sets up or cleans up; patient completes activity. [place] assists only prior to or following the activity. 4-Supervision or Touching Assistance-helper provides verbal cues and/or touching/steadying and/or contact guard assistance as patient completes activity. Assistance may be provided throughout the activity or intermittently. 3-Partial/Moderate Assistance-helper does LESS THAN HALF the effort. [place] lifts, holds or supports trunk or limbs, but provides less than half the effort. 2-Substantial/Maximal Assistance-helper does MORE THAN HALF the effort. [place] lifts or holds trunk or limbs and provides more than half the effort. 1-Fasjztgwe-jvpvgh does ALL the effort. Patient does none of the effort to complete the activity. Or, the assistance of 2 or more helpers is required for the patient to complete the activity. If activity was not attempted, code reason: 7-Patient Refused. 9-Not Applicable-not attempted and the patient did not perform the activity before the current illness, exacerbation or injury. 10-Not Attempted due to Environmental Limitations-(lack of equipment, weather restraints, etc.). 88-Not Attempted due to Medical Conditions or Safety Concerns. Roll Left to Right (QC): 6 Sit to Lying (QC): 6 Sit to Stand (QC): 6 Chair/Ejf-op-Pnzoz Xfer(QC): 6 Car Transfer (QC): 6 Gait Training Does the Patient Walk?: Yes Distance: 500' x 2/300' x 2/200' x 2 Walk 10 feet (QC): 6 Walk 50 ft with 2 Turns(QC): 6 Walk 150 ft (QC): 6 Walking 10ft/uneven surface-QC: 6 Gait Persons Needed: 1 Gait Assistive Device: Cane Small Base Quad Stair Training Stair Training: Handrails/: 1 handrail #of Steps: 12 1 Step (curb) (QC): 6 4 Steps (QC): 3 (CGA for safety) 12 Steps (QC): 6 Stairs: Pattern: Reciprocal Balance Picking up an Object (QC): 6 ADL-Treatment Eating (QC): 6 (Pt reports no difficulty with feeding.) Oral Hygiene (QC): 6 (Independent standing at sink) Shower/Bathe Self (QC): 5 (set up, pt able to wash/dry all parts with increased time.) Upper Body Dressing (QC): 6 (IND don/doff candy puller shirt.) Lower Body Dressing (QC): 6 (IND doffed underwear, donned underwear, pants, and belt.) On/Off Footwear (QC): 6 (IND doffing/donning socks and shoes.) Toileting Hygiene (QC): 6 (Pt able to complete hygiene and clothing manag ement.) Toilet Transfer (QC): 6 (IND using GBs and SPC) Assessment/Plan Assessment and Plan Assess & Plan/Chief Complaint Assessment: Debility from cardiac causes CAD CABG hx HTN HLP COVID negative CRI Plan: IRF protocol Monitor pain O2 eval Telemetry 05/07/20: Tely DC? Monitor O2 sat Monitor for pain 05/08/20: ARF addressed with gentle IVF Monitor angina 05/09/20: Continue IVF Check labs in am Monitor closely DC Monday05/10/20: DC home tomorrow Monitor chest pain HLIVF Creat improved (1) Debility (2) Chest pain on exertion Status: Acute (3) Coronary artery disease Status: Acute (4) GERD (gastroesophageal reflux disease) Status: Chronic (5) HTN (hypertension) Status: Chronic (6) HLD (hyperlipidemia) Status: Chronic (7) Elevated troponin Status: Acute (8) BPH (benign prostatic hyperplasia) Status: Chronic LORIE GARCIA DO May 10, 2020 10:45
--- NOTE | 2020-05-10 13:39 | Progress Note - Cardiology ---
Cardiology SOAP Progress Note Subjective: Had chest pain last night after exertional activity (pulling himself up in bed) lasted several minutes, resolved with s/l NTG, no radiation, w/o other symptoms, mod in intensity, feeling of pressure, similar to what he had come in with to the acute service prior to being transferred to Rehab a week ago. No shortness of breath or palp or syncope. No n/v/d Objective: I&O/Vital Signs 05/10/20 05/10/20 05:03 09:00 Temp 36.8 Pulse 76 Resp 15 B/P (MAP) 117/60 (79) Pulse Ox 98 O2 Delivery Room Air Room Air 05/10/20 00:00 Intake Total 790 ml Balance 790 ml Weight (Pounds): 191 Weight (Ounces): 5.0 Weight (Calculated Kilograms): 86.281143 Constitutional: AAO x 3, well-developed, well-nourished Respiratory: No accessory muscle use; other (good bilat air entry) Cardiovascular: regular rate-rhythm, S1 and S2, systolic murmur (soft JANELLE at card base) Gastrointestional: No tender; soft; No guarding, No rebound Extremities: No clubbing, No cyanosis, No significant edema Neurologic/Psychiatric: oriented x 3, other (moves all limbs equally) Skin: No rash on exposed areas, No ulcerations on exposed areas Results/Procedures: Labs Laboratory Tests 05/10/20 05:25: White Blood Count 6.4, Red Blood Count 3.78L, Hemoglobin 11.2L, Hematocrit 34L, Mean Corpuscular Volume 91, Mean Corpuscular Hemoglobin 30, Mean Corpuscular Hemoglobin Concent 33, Red Cell Distribution Width 13.3, Platelet Count 238, Mean Platelet Volume 10.1, Neutrophils (%) (Auto) 55, Lymphocytes (%) (Auto) 27, Monocytes (%) (Auto) 12, Eosinophils (%) (Auto) 5, Basophils (%) (Auto) 1, Neutrophils # (Auto) 3.5, Lymphocytes # (Auto) 1.7, Monocytes # (Auto) 0.8, Eosinophils # (Auto) 0.3, Basophils # (Auto) 0.0, Sodium Level 142, Potassium Level 4.1, Chloride Level 110H, Carbon Dioxide Level 22, Anion Gap 10, Blood Urea Nitrogen 24H, Creatinine 1.08, Estimat Glomerular Filtration Rate > 60, BUN/Creatinine Ratio 22, Glucose Level 92, Calcium Level 8.8, Corrected Calcium 9.5, Total Bilirubin 0.4, Aspartate Amino Transf (AST/SGOT) 11, Alanine Aminotransferase (ALT/SGPT) 9, Alkaline Phosphatase 48, Total Protein 5.9L, Albumin 3.1L A/P: Assessment: Intermittent chest pain in the setting of known CAD, but card cath of 05/05/[address] Baig has shown stable coronary and graft status. Suspect angina due to disease of small, epicardial vessels CAD. Card cath on 05/05/20 (Dr Baig): Severe three vessels [place] CAD. Patent BAILEY to the mid LAD, SVG to the RPDA, SVG to OM, another SVG occluded (stated to be chronic occlusion in Dr Baig's report) Echo of 05/04/20 (Dr Baig): LVEF 55-65%, grade 1 carr dysfunction, mod LA enlargement, estimated PASP 30 mmHg Hypertension Hyperlipidemia GERD H/o prostate cancer, treated with hormone therapy that is managed by Dr Cruz Gen weakness and debility Plan: * I reviewed his cath films after reviewed his records and after interviewing and examining him * Add Imdur to regime. Start low * If Imdur inadequate, then consider Ranexa * Continue DAPT and other cardiac regimen MICA SALINAS MD FACP [facility] CCDS May 10, 2020 13:39
[2020-05-10] MEDS ORDERED: ISOSORBIDE MONONITRATE 30 MG (IMDUR) TAB PO ONE (15:00)
--- NOTE | 2020-05-10 15:10 | NUR ---
Pt ambulate in halls. States he then had CP when returning to room and request PRN nitro. Medication given. Pt states nitro helped his CP and he is feeling better now. Dr. Cole started pt on Imdur and this medication given.
[2020-05-10] MEDS: NITROGLYCERIN 0.4 MG SL TABS BTL 25'S SL PRN (15:11)
[2020-05-10] MEDS: ENOXAPARIN 40 MG/0.4 ML (LOVENOX) SYR SC SCH (15:12)
[2020-05-10 17:27] VITALS: BP 106/57
[2020-05-10] MEDS: SIMvastatin 40 MG (ZOCOR) TAB PO SCH (20:07)
[2020-05-10] MEDS: ALPRAZolam 0.5 MG (XANAX) TAB PO PRN (20:08)
[2020-05-10] MEDS: FINASTERIDE (PROSCAR) 5 MG TAB PO SCH (20:08)
[2020-05-10 20:13] VITALS: BP 100/57
[2020-05-11 05:29] VITALS: BP 104/57
[2020-05-11] MEDS ORDERED: CLOP75TA28 PO (05:32)
[2020-05-11] MEDS ORDERED: METO-333 PO (05:32)
[2020-05-11] MEDS ORDERED: ISOS30TA3 PO (05:32)
--- NOTE | 2020-05-11 05:32 | Discharge Summary ---
Diagnosis/Chief Complaint Date of Admission May 06, 2020 at 10:20 Date of Discharge Discharge Date: May 11, 2020 Discharge Diagnosis Assessment: Debility from cardiac causes CAD CABG hx HTN HLP COVID negative CRI Plan: IRF protocol Monitor pain O2 eval Telemetry 05/07/20: Tely DC? Monitor O2 sat Monitor for pain 05/08/20: ARF addressed with gentle IVF Monitor angina 05/09/20: Continue IVF Check labs in am Monitor closely DC Monday05/10/20: DC home tomorrow Monitor chest pain HLIVF Creat improved Discharge Summary Discharge Physical Examination Allergies: Coded Allergies: zolpidem (Verified Adverse Reaction, Severe, TOTAL CONFUSION ET OUT OF CHARACTER BEHAVIOR, 09/03/14) HAD AN AMBIEN WAS UP, MAKING BED, SUSPICIOUS, OUT OF IT, NO MEMORY OF THIS IN A.M. Vitals & I&Os Vital Signs Date Time Temp Pulse Resp B/P (MAP) Pulse Ox O2 Delivery O2 Flow Rate FiO2 05/11/20 11:00 36.5 74 104/57 96 Room Air 05/11/20 05:29 16 General Appearance: Alert, Oriented X3 Respiratory: Normal Air Movement Cardiovascular: Regular Rate Neuro: Normal Speech Psych/Mental Status: Mental Status NL Hospital Course Was the Problem List Reviewed?: Yes Hospital Course: Pt had an uneventful hospital course for 6 days when he came to inpatient rehab after debility following cardiac cath and chest pain. Cardiac cath showed small vessel disease. Nitroglycerine was initiate but that was changed to Isosorbide Dinitrate to help with chronic angina which was helpful except for mild hypotension and all medications were adjusted to that fact. Overall he felt like he was well enough to go home. He participated in all therapy and and his was agreeable to the plan. Labs (last 24 hrs) Laboratory Tests 05/08/20 05:33: White Blood Count 6.6, Red Blood Count 4.02L, Hemoglobin 12.0L, Hematocrit 36L, Mean Corpuscular Volume 89, Mean Corpuscular Hemoglobin 30, Mean Corpuscular Hemoglobin Concent 34, Red Cell Distribution Width 12.9, Platelet Count 199, Mean Platelet Volume 10.2, Neutrophils (%) (Auto) 67, Lymphocytes (%) (Auto) 18, Monocytes (%) (Auto) 11, Eosinophils (%) (Auto) 5, Basophils (%) (Auto) 0, Neutrophils # (Auto) 4.4, Lymphocytes # (Auto) 1.2, Monocytes # (Auto) 0.7, Eosinophils # (Auto) 0.3, Basophils # (Auto) 0.0, Sodium Level 137, Potassium Le tanisha 4.3, Chloride Level 104, Carbon Dioxide Level 24, Anion Gap 9, Blood Urea Nitrogen 43H, Creatinine 1.71H, Estimat Glomerular Filtration Rate 38, BUN/Creatinine Ratio 25, Glucose Level 94, Calcium Level 9.1, Corrected Calcium 9.7, Total Bilirubin 0.4, Aspartate Amino Transf (AST/SGOT) 21, Alanine Aminotransferase (ALT/SGPT) 15, Alkaline Phosphatase 52, Total Protein 6.1L, Albumin 3.2 05/09/20 07:25: Sodium Level 141, Potassium Level 4.1, Chloride Level 109H, Carbon Dioxide Level 21, Anion Gap 11, Blood Urea Nitrogen 31H, Creatinine 1.42H, Estimat Glomerular Filtration Rate 47, BUN/Creatinine Ratio 22, Glucose Level 129H, Calcium Level 9.3 05/10/20 05:25: White Blood Count 6.4, Red Blood Count 3.78L, Hemoglobin 11.2L, Hematocrit 34L, Mean Corpuscular Volume 91, Mean Corpuscular Hemoglobin 30, Mean Corpuscular Hemoglobin Concent 33, Red Cell Distribution Width 13.3, Platelet Count 238, Mean Platelet Volume 10.1, Neutrophils (%) (Auto) 55, Lymphocytes (%) (Auto) 27, Monocytes (%) (Auto) 12, Eosinophils (%) (Auto) 5, Basophils (%) (Auto) 1, Neutrophils # (Auto) 3.5, Lymphocytes # (Auto) 1.7, Monocytes # (Auto) 0.8, Eosinophils # (Auto) 0.3, Basophils # (Auto) 0.0, Sodium Level 142, Potassium Level 4.1, Chloride Level 110H, Carbon Dioxide Level 22, Anion Gap 10, Blood Urea Nitrogen 24H, Creatinine 1.08, Estimat Glomerular Filtration Rate > 60, BUN/Creatinine Ratio 22, Glucose Level 92, Calcium Level 8.8, Corrected Calcium 9.5, Total Bilirubin 0.4, Aspartate Amino Transf (AST/SGOT) 11, Alanine Aminotransferase (ALT/SGPT) 9, Alkaline Phosphatase 48, Total Protein 5.9L, Al bumin 3.1L Pending Labs Laboratory Tests 05/08/20 05:33: White Blood Count 6.6, Red Blood Count 4.02, Hemoglobin 12.0, Hematocrit 36, Mean Corpuscular Volume 89, Mean Corpuscular Hemoglobin 30, Mean Corpuscular Hemoglobin Concent 34, Red Cell Distribution Width 12.9, Platelet Count 199, Mean Platelet Volume 10.2, Neutrophils (%) (Auto) 67, Lymphocytes (%) (Auto) 18, Monocytes (%) (Auto) 11, Eosinophils (%) (Auto) 5, Basophils (%) (Auto) 0, Neutrophils # (Auto) 4.4, Lymphocytes # (Auto) 1.2, Monocytes # (Auto) 0.7, Eosinophils # (Auto) 0.3, Basophils # (Auto) 0.0, Sodium Level 137, Potassium Level 4.3, Chloride Level 104, Carbon Dioxide Level 24, Anion Gap 9, Blood Urea Nitrogen 43, Creatinine 1.71, Estimat Glomerular Filtration Rate 38, BUN/Creatinine Ratio 25, Glucose Level 94, Calcium Level 9.1, Corrected Calcium 9.7, Total Bilirubin 0.4, Aspartate Amino Transf (AST/SGOT) 21, Alanine Aminotransferase (ALT/SGPT) 15, Alkaline Phosphatase 52, Total Protein 6.1, Albumin 3.2 05/09/20 07:25: Sodium Level 141, Potassium Level 4.1, Chloride Level 109, Carbon Dioxide Level 21, Anion Gap 11, Blood Urea Nitrogen 31, Creatinine 1.42, Estimat Glomerular Filtration Rate 47, BUN/Creatinine Ratio 22, Glucose Level 129, Calcium Level 9.3 05/10/20 05:25: White Blood Count 6.4, Red Blood Count 3.78, Hemoglobin 11.2, Hematocrit 34, Mean Corpuscular Volume 91, Mean Corpuscular Hemoglobin 30, Mean Corpuscular Hemoglobin Concent 33, Red Cell Distribution Width 13.3, Platelet Count 238, Mean Platelet Volume 10.1, Neutrophils (%) (Auto) 55, Lymphocytes (%) (Auto) 27, Monocytes (%) (Auto) 12, Eosinophils (%) (Auto) 5, Basophils (%) (Auto) 1, Neutrophils # (Auto) 3.5, Lymphocytes # (Auto) 1.7, Monocytes # (Auto) 0.8, Eosinophils # (Auto) 0.3, Basophils # (Auto) 0.0, Sodium Level 142, Potassium Level 4.1, Chloride Level 110, Carbon Dioxide Level 22, Anion Gap 10, Blood Urea Nitrogen 24, Creatinine 1.08, Estimat Glomerular Filtration Rate > 60, B UN/Creatinine Ratio 22, Glucose Level 92, Calcium Level 8.8, Corrected Calcium 9.5, Total Bilirubin 0.4, Aspartate Amino Transf (AST/SGOT) 11, Alanine Aminotransferase (ALT/SGPT) 9, Alkaline Phosphatase 48, Total Protein 5.9, Albumin 3.1 Discharge Home Medications: Active Scripts Active Metoprolol Tartrate 25 Mg Tablet 12.5 Mg PO BID Isosorbide Mononitrate ER (Isosorbide Mononitrate) 30 Mg Tab.er.24h 30 Mg PO DAILY Clopidogrel (Clopidogrel Bisulfate) 75 Mg Tablet 75 Mg PO DAILY Reported Lupron Depot (Leuprolide Acetate) 30 Mg/Kit Soln 30 Mg IM EVERY 4 MONTHS Simvastatin 80 Mg Tablet 40 Mg PO HS TAKES OF AN 80MG TAB Nitroglycerin 0.4 Mg Tab.subl 0.4 Mg PO UD PRN Aspirin EC (Aspirin) 81 Mg Tablet.dr 81 Mg PO DAILY Fish Oil 1,000 mg Capsule ([place] 3 Polyunsat Fatty Acids) 1,000 Mg Cap 2,000 Mg PO BID TAKES 2 (1000MG) CAPS TWICE DAILY Finasteride 5 Mg Tablet 5 Mg PO DAILY Heartburn Treatment 24 Hour (Lansoprazole) 15 Mg Capsule.dr 30 Mg PO DAILY TAKES 2 (15MG) CAPS Alprazolam 1 Mg Tablet 0.5 Mg PO DAILY PRN Instructions to patient/family Please see electronic discharge instructions given to patient. Diagnosis/Problems Diagnosis/Problems (1) Debility (2) Chest pain on exertion Status: Acute (3) Coronary artery disease Status: Acute (4) GERD (gastroesophageal reflux disease) Status: Chronic (5) HTN (hypertension) Status: Chronic (6) HLD (hyperlipidemia) Status: Chronic (7) Elevated troponin Status: Acute (8) BPH (benign prostatic hyperplasia) Status: Chronic LORIE GARCIA DO May 11, 2020 05:32
[2020-05-11] MEDS: NITROGLYCERIN 0.4 MG SL TABS BTL 25'S SL PRN (08:39)
[2020-05-11] MEDS ORDERED: ISOSORBIDE MONONITRATE 30 MG (IMDUR) TAB PO SCH (09:00)
--- NOTE | 2020-05-11 09:00 | Occupational Ther Daily Note ---
OT Current Status-Daily Note Subjective Pt in reclining chair with in room. No c/o pain. Pt agreeable to therapy. QC completed today. Mental Status/Objective Patient Orientation: Person, Place, Time, Situation Attachments: IV ADL-Treatment Therapy Code Descriptions/Definitions Functional [place] Measure: 0=Not Assessed/NA 4=Minimal Assistance 1=Total Assistance 5=Supervision or Setup 2=Maximal Assistance 6=Modified [place] 3=Moderate Assistance 7=Complete IndependenceSCALE: Activities may be completed with or without assistive devices. 4-Oxoirbomqa-vubvmyf completes the activity by him/herself with no assistance from a helper. 5-Set-up or Clean-up Assistance-helper sets up or cleans up; patient completes activity. [place] assists only prior to or following the activity. 4-Supervision or Touching Assistance-helper provides verbal cues and/or touching/steadying and/or contact guard assistance as patient completes activi ty. Assistance may be provided throughout the activity or intermittently. 3-Partial/Moderate Assistance-helper does LESS THAN HALF the effort. [place] lifts, holds or supports trunk or limbs, but provides less than half the effort. 2-Substantial/Maximal Assistance-helper does MORE THAN HALF the effort. [place] lifts or holds trunk or limbs and provides more than half the effort. 1-Uwwokhlxd-bzmktv does ALL the effort. Patient does none of the effort to complete the activity. Or, the assistance of 2 or more helpers is required for the patient to complete the activity. If activity was not attempted, code reason: 7-Patient Refused. 9-Not Applicable-not attempted and the patient did not perform the activity before the current illness, exacerbation or injury. 10-Not Attempted due to Environmental Limitations-(lack of equipment, weather restraints, etc.). 88-Not Attempted due to Medical Conditions or Safety Concerns. Eating (QC): 6 (Per pt report) Oral Hygiene (QC): 6 (Per pt report) Shower/Bathe Self (QC): 6 (While seated on shower chair) Upper Body Dressing (QC): 6 (While seated) Lower Body Dressing (QC): 6 (While seated) On/Off Footwear: 6 (While seated) Toileting Hygiene (QC): 6 Toilet Transfer (QC): 6 (With walker this am) Pt transferred to bathroom with walker independently. He sat on toilet to doff socks, shoes, pants, underwear, and shirt independently. He then transferred to shower with walker. Pt completed shower independently while seated on shower chair. After completing showering, pt began to complain of chest pain. Nursing was notified. BP was 154/87 and medication was administered. Pt. reported that he was feeling much better after medication. Using walker, he transferred back to toilet to don shirt, pants, socks, and shoes independently. Pt. returned to chair using walker. He was in reclining chair with in the room at the end of session. All needs met. Education OT Patient Education: Correct positioning, Energy conservation, Modified ADL techniques, Progress toward Goal/Update tx plan, Purpose of tx/functional activities, Reviewed precautions, Rehab process, Safety issues, Transfer techniques Teaching Recipient: Patient Teaching Methods: Demonstration, Discussion Response to Teaching: Verbalize Understanding, Return Demonstration OT Mcc Goals Mcc Goals Time Frame: May 20, 2020 Eating (QC): 6 Oral Hygiene (QC): 6 Toileting Hygiene (QC): 6 Shower/Bathe Self (QC): 6 Upper Body Dressing (QC): 6 Lower Body Dressing (QC): 6 On/Off Footwear (QC): 6 Additional Goals: 1-Demonstrate ADL Tasks, 2-Verbalize Understanding, 3- ImproveStrength/Varun 1=Demonstrate adherence to instructed precautions during ADL tasks. 2=Patient will verbalize/demonstrate understanding of assistive devices/modifications for ADL. 3=Patient will improve strength/tolerance for activity to enable patient to perform ADL's. OT Education/Plan Discharge Recommendations Plan/Recommendations: Continue POC Therapy Discharge Recommendati: Home & Family Treatment Plan/Plan of Care Treatment,Training & Education: Yes Patient would benefit from OT for education, treatment and training to promote independence in ADL's, mobility, safety and/or upper extremity function for ADL's. Plan of Care: ADL Retraining, Functional Mobility, Group Exercise/Act as Ind, UE Funct Exercise/Act Treatment Duration: May 20, 2020 Frequency: At least 5 of 7 days/Wk (IRF) Estimated Hrs Per Day: 1.5 hours per day Agreement: Yes Rehab Potential: Good Time/GCodes Start Time: 08:15 Stop Time: 08:50 Total Time Billed (hr/min): 35 Billed Treatment Time 1, ADL 2 (35 minutes) ERIK KIMBALL OT May 11, 2020 09:00
--- NOTE | 2020-05-11 09:07 | Therapy Team Discharge Summary ---
Therapy Discharge Summary Discharge Recommendations Date of Discharge 05/11/20 Therapy D/C Recommendations: Home w/ Family Support Occupational Therapy Pt seen by OT for weakness and decreased ADL skills. Pt has made excellent progress in all ADL skills and is mod I with all ADLs. He is discharging home with family support. No equipment needs or further OT needed at this time. Decreased Activ Tolerance PT Prison Goals Automation Operator Goals PT Automation Operator Goals Time Frame: May 21, 2020 Roll Left to Right (QC): 6 Sit to Lying (QC): 6 Lying-Sitting on Side/Bed(QC): 6 Sit to Stand (QC): 6 Chair/Pkv-jm-Afxqs Xfer(QC): 6 Car Transfer (QC): 6 Does the Patient Walk: Yes Walk 10 feet (QC): 6 Walk 10ft-Uneven Surface(QC): 6 Walk 50ft with 2 Turns (QC): 6 Walk 150 ft (QC): 6 Does the Pt use WC or Scooter?: No Wheel 50 feet with 2 turns (QC: 9 1 Step (curb) (QC): 6 4 Steps (QC): 6 12 Steps (QC): 9 Picking up an Object (QC): 4 OT Automation Operator Goals [place] Goals Time Frame: May 20, 2020 Eating (QC): 6 Oral Hygiene (QC): 6 Shower/Bathe Self (QC): 6 Upper Body Dressing (QC): 6 Lower Body Dressing (QC): 6 On/Off Footwear (QC): 6 Toileting Hygiene (QC): 6 Toilet/Commode Transfer (QC): 6 Additional Goals: 1-Demonstrate ADL Tasks, 2-Verbalize Understanding, 3- ImproveStrength/Varun 1=Demonstrate adherence to instructed precautions during ADL tasks. 2=Patient will verbalize/demonstrate understanding of assistive devices/modifications for ADL. 3=Patient will improve strength/tolerance for activity to enable patient to perform ADL's. ERIK KIMBALL OT May 11, 2020 09:07
[2020-05-11] MEDS: ASPIRIN E.C. 81 MG (ECOTRIN) TAB PO SCH (09:52)
[2020-05-11] MEDS: PANTOPRAZOLE 40 MG (PROTONIX) TAB PO SCH (09:53)
[2020-05-11] MEDS: meTOprolol TARTRATE 25 MG (LOPRESSOR) TABLET PO SCH (09:53)
[2020-05-11] MEDS: CLOPIDOGREL 75 MG (PLAVIX) TABLET PO SCH (09:53)
[2020-05-11] MEDS: DOCUSATE SODIUM 100 MG (COLACE) CAP PO SCH (09:54)
[2020-05-11] MEDS: polyethylene glycoL POWDER 17 GM (MIRALAX) PACK PO SCH (09:54)
[2020-05-11] MEDS: SENNA W/DOCUSATE (SENOKOT S) TABLET PO SCH (09:55)
--- NOTE | 2020-05-11 10:03 | Physical Therapy Daily Note ---
PT Daily Note-Current Subjective Agrees to PT. Reports he is going home today. Mental Status Patient Orientation: Person, Place, Time, Situation Transfers SCALE: Activities may be completed with or without assistive devices. 4-Jjpfkldbvx-ufqaqrp completes the activity by him/herself with no assistance from a helper. 5-Set-up or Clean-up Assistance-helper sets up or cleans up; patient completes activity. [place] assists only prior to or following the activity. 4-Supervision or Touching Assistance-helper provides verbal cues and/or touching/steadying and/or contact guard assistance as patient completes activity. Assistance may be provided throughout the activity or intermittently. 3-Partial/Moderate Assistance-helper does LESS THAN HALF the effort. [place] lifts, holds or supports trunk or limbs, but provides less than half the effort. 2-Substantial/Maximal Assistance-helper does MORE THAN HALF the effort. [place] lifts or holds trunk or limbs and provides more than half the effort. 1-Otsahfzaf-eiauzy does ALL the effort. Patient does none of the effort to complete the activity. Or, the assistance of 2 or more helpers is required for the patient to complete the activity. If activity was not attempted, code reason: 7-Patient Refused. 9-Not Applicable-not attempted and the patient did not perform the activity before the current illness, exacerbation or injury. 10-Not Attempted due to Environmental Limitations-(lack of equipment, weather restraints, etc.). 88-Not Attempted due to Medical Conditions or Safety Concerns. Roll Left & Right (QC): 6 Sit to Lying (QC): 6 Lying to Sitting/Side of Bed(Q: 6 Sit to Stand (QC): 6 Chair/Zns-wl-Emjzt Xfer(QC): 6 Toilet Transfer (QC): 6 Car Transfer (QC): 6 Gait Training Does the Patient Walk?: Yes Walk 10 feet (QC): 6 Walk 50 ft with 2 Turns(QC): 6 Walk 150 ft (QC): 6 Walking 10ft/uneven surface-QC: 6 Gait Assistive Device: FWW Forward flexed at hips ; safe and steady Wheelchair Training Does the Pt Use a Wheelchair?: No Stair Training Stair Training: Handrails/: 2 handrails 1 Step (curb) (QC): 6 4 Steps (QC): 4 12 Steps (QC): 7 (Pt reports he does not have the endurance to complete. ) Stairs: Pattern: Reciprocal Balance Picking up an Object (QC): 4 Treatments Functional mobility training. Assessment Current Status: Excellent Progress Pt has made good progress and is meeting therapy goals. PT Lathe Scalper Operator Goals Lathe Scalper Operator Goals PT Lathe Scalper Operator Goals Time Frame: May 21, 2020 Roll Left & Right (QC): 6 (met) Sit to Lying (QC): 6 (met) Lying-Sitting on Side/Bed(QC): 6 (met) Sit to Stand (QC): 6 (met) Chair/Ker-gg-Vqgfx Xfer(QC): 6 (met) Toilet Transfer (QC): 6 (metmet) Car Transfer (QC): 6 (met) Does the Patient Walk: Yes Walk 10 feet (QC): 6 (met) Walk 50ft with 2 Turns (QC): 6 (met) Walk 150 ft (QC): 6 (met) Walking 10ft on Uneven Surface: 6 (metmet) 1 Step (curb) (QC): 6 (met) 4 Steps (QC): 6 (met) 12 Steps (QC): 9 Picking up an Object (QC): 4 (met) Does the Pt use WC or Scooter?: No Wheel 50 feet with 2 turns (QC: 9 Wheel 150 feet: 9 PT Plan Treatment/Plan Treatment Plan: Discontinue PT Treatment Plan: Bed Mobility, Education, Functional Activity Varun, Functional Strength, Group Therapy, Gait, Safety, Therapeutic Exercise, Transfers Treatment Duration: May 21, 2020 Frequency: At least 5 of 7 days/Wk (IRF) Estimated Hrs Per Day: 1.5 hours per day Patient and/or Family Agrees t: Yes Safety Risks/Education Patient Education: Safety Issues Teaching Recipient: Patient Teaching Methods: Discussion Response to Teaching: Verbalize Understanding Time/GCodes Time In: 915 Time Out: 940 Total Billed Treatment Time: 25 Total Billed Treatment visit FA 25 MARISA ECHEVERRIA PT May 11, 2020 10:03
--- NOTE | 2020-05-11 10:11 | Therapy Team Discharge Summary ---
Therapy Discharge Summary Discharge Recommendations Date of Discharge 05/11/2020 Therapy D/C Recommendations: Home w/ Family Support Physical Therapy Pt admitted to ARU post acute hospital stay due to recent heart cath. Prior to his hospital stay, he was mod indep with gait using a cane and able to walk community distances and drive. Upon admission to this unit, he was min assist with bed mobility, transfers and gait and presented with limited functional activity tolerance. Treatment has consisted of strength, balance, gait, safety and activity tolerance training. He has made excellent progress and is mod indep with all mobility and demonstrates good safety awareness. He has met all goals. DC from PT this date. Occupational Therapy Decreased Activ Tolerance PT Residential Goals Residential Goals PT Paper Latcher Goals Time Frame: May 21, 2020 Roll Left to Right (QC): 6 (met) Sit to Lying (QC): 6 (met) Lying-Sitting on Side/Bed(QC): 6 (met) Sit to Stand (QC): 6 (met) Chair/Prj-nu-Dplrw Xfer(QC): 6 (met) Car Transfer (QC): 6 (met) Does the Patient Walk: Yes Walk 10 feet (QC): 6 (met) Walk 10ft-Uneven Surface(QC): 6 (metmet) Walk 50ft with 2 Turns (QC): 6 (met) Walk 150 ft (QC): 6 (met) Does the Pt use WC or Scooter?: No Wheel 50 feet with 2 turns (QC: 9 1 Step (curb) (QC): 6 (met) 4 Steps (QC): 6 (met) 12 Steps (QC): 9 Picking up an Object (QC): 4 (met) OT Paper Latcher Goals Residential Goals Time Frame: May 20, 2020 Eating (QC): 6 Oral Hygiene (QC): 6 Shower/Bathe Self (QC): 6 Upper Body Dressing (QC): 6 Lower Body Dressing (QC): 6 On/Off Footwear (QC): 6 Toileting Hygiene (QC): 6 Toilet/Commode Transfer (QC): 6 (metmet) Additional Goals: 1-Demonstrate ADL Tasks, 2-Verbalize Understanding, 3- ImproveStrength/Varun 1=Demonstrate adherence to instructed precautions during ADL tasks. 2=Patient will verbalize/demonstrate understanding of assistive devices/modifications for ADL. 3=Patient will improve strength/tolerance for activity to enable patient to perform ADL's. MARISA ECHEVERRIA PT May 11, 2020 10:11
--- NOTE | 2020-05-11 10:50 | NUR ---
CM/SS DISCHARGE Patient discharged home today as planned. IMM2 reviewed, signed, charted. Discharge planned over past few days, no intention to appeal since he requested to return home prior to actual discharge. There were on post hospital services ordered, home with spouse and followup with PCP.
[2020-05-11 11:00] VITALS: BP 104/57
--- NOTE | 2020-05-11 11:00 | NUR ---
CAITIE FULLER demonstrates understanding of discharge instructions and accurately returns instructions upon questioning. Copy of Post-Discharge Instructions given to patient. CAITIE FULLER is able to manage continuing needs after discharge. Patients belongings returned to patient. Patient discharged from [facility] on 05/11/20 at 1100. CAITIE FULLER left floor via WC, accompanied by staff and .
--- NOTE | 2020-05-11 12:31 | Progress Note - Cardiology ---
Cardiology SOAP Progress Note Subjective: Continues with intermittent chest discomfort that is relieved with NTG No palp or syncope or shortness of breath Gen weakness, improved Objective: I&O/Vital Signs 05/11/20 05:29 Temp 36.5 Pulse 74 Resp 16 B/P (MAP) 104/57 (73) Pulse Ox 95 O2 Delivery Room Air 05/11/20 00:00 Intake Total 825 ml Balance 825 ml Weight (Pounds): 191 Weight (Ounces): 5.0 Weight (Calculated Kilograms): 86.440041 Constitutional: AAO x 3, well-developed, well-nourished Respiratory: No accessory muscle use; other (good bilat air entry) Cardiovascular: regular rate-rhythm, S1 and S2, systolic murmur (soft JANELLE at card base) Gastrointestional: No tender; soft; No guarding, No rebound Extremities: No clubbing, No cyanosis, No significant edema Neurologic/Psychiatric: oriented x 3, other (moves all limbs equally) Skin: No rash on exposed areas, No ulcerations on exposed areas A/P: Assessment: Intermittent chest pain in the setting of known CAD, but card cath of 05/05/[address] Baig has shown stable coronary and graft status. Suspect angina due to disease of small, epicardial vessels CAD. Card cath on 05/05/20 (Dr Baig): Severe three vessels yocha dehe CAD. Patent BAILEY to the mid LAD, SVG to the RPDA, SVG to OM, another SVG occluded (stated to be chronic occlusion in Dr Baig's report) Echo of 05/04/20 (Dr Baig): LVEF 55-65%, grade 1 carr dysfunction, mod LA enlargement, estimated PASP 30 mmHg Hypertension Hyperlipidemia GERD H/o prostate cancer, treated with hormone therapy that is managed by Dr Cruz Gen weakness and debility Plan: * Continue Imdur * If Imdur inadequate, then consider Ranexa * Continue DAPT and other cardiac regimen * Outpt cardiac f/u with Dr Baig * I had a detailed discussion with Mr Rodriguez regarding his CV issues MICA SALINAS MD FACP FAC CCDS May 11, 2020 12:31
== END 2020-05-11 11:00 | disposition home or self-care (01) | DRG 91 ==
PROVIDERS: ADMIT Internal Medicine; ATTEND Internal Medicine
DX: G72.89 Other specified myopathies (principal); I21.4 Non-ST elevation (NSTEMI) myocardial infarction; I25.719 Atherosclerosis of autologous vein coronary artery bypass graft(s) with unspecified angina pectoris; N17.9 Acute kidney failure, unspecified; I25.119 Atherosclerotic heart disease of native coronary artery with unspecified angina pectoris; I12.9 Hypertensive chronic kidney disease with stage 1 through stage 4 chronic kidney disease, or unspecified chronic kidney disease; N18.9 Chronic kidney disease, unspecified; I95.2 Hypotension due to drugs; E78.00 Pure hypercholesterolemia, unspecified; K59.00 Constipation, unspecified; M10.9 Gout, unspecified; F41.9 Anxiety disorder, unspecified; K21.9 Gastro-esophageal reflux disease without esophagitis; N40.0 Benign prostatic hyperplasia without lower urinary tract symptoms; C61 Malignant neoplasm of prostate; Z95.1 Presence of aortocoronary bypass graft; Z95.5 Presence of coronary angioplasty implant and graft; Z87.891 Personal history of nicotine dependence; Z20.828 Contact with and (suspected) exposure to other viral communicable diseases
CPT/HCPCS: 36415; 80048; 80053; 85025; 93005

== ENCOUNTER 2021-03-06 09:29 | Emergency (ER) | payer MEDICARE ==
[~2021-03-06] VITALS: Ht 177.8 cm; Wt 74.8 kg
[~2021-03-06 09:29] MED LIST changes: +ASPI-1238 PO; -ASPI-983 PO; +CLOP75TA28 PO; +ISOS30TA82 PO; +METO-333 PO
[2021-03-06] MEDS ORDERED: KETOROLAC 30 MG/ML VIAL IM STA (10:43)
--- NOTE | 2021-03-06 11:08 | ED Upper Extremity ---
General Chief Complaint: Upper Extremity Stated Complaint: LEFT ELBOW SWOLLEN/RED Nursing Triage Note: Pt ambulatory to ED with cane. Pt c/o L elbow pain, swelling and redness that began on . Pt denies injury. Pt reports being sent to ED from [facility]. Nursing Sepsis Screen: No Definite Risk Source: patient, family Exam Limitations: no limitations History of Present Illness Date Seen by Provider: Mar 06, 2021 Time Seen by Provider: 10:32 Initial Comments Here with report of left elbow swelling and pain that started a few days ago and worsened. Went to [facility] to the clinic and was sent here apparently. Patient is unsure of concerns of why he was sent here but thinks it might be due to concerns of infection. Denies any previous wounds. Does have history of gout with multiple different joints affected including feet hands and arms. He has not tried anything for gout pain. Does have swelling of the left elbow. Denies fever chills. Denies weakness. Does exercise both arms but it is the same exercise he has been using for the last 10 years. Onset: other (2 days ago) Severity: moderate Pain/Injury Location: left elbow Modifying Factors: Improves With Immobilization; Worse With Movement Allergies and Home Medications Allergies Coded Allergies: zolpidem (Verified Adverse Reaction, Severe, TOTAL CONFUSION ET OUT OF CHARACTER BEHAVIOR, 09/03/14) HAD AN AMBIEN WAS UP, MAKING BED, SUSPICIOUS, OUT OF IT, NO MEMORY OF THIS IN A.M. Home Medications Alprazolam 1 Mg Tablet, 0.5 MG PO DAILY PRN for ANXIETY, (Reported) Aspirin 81 Mg Tablet., 81 MG PO DAILY, (Reported) Clopidogrel Bisulfate 75 Mg Tablet, 75 MG PO DAILY Prescribed by: LORIE GARCIA on 05/11/20531 Finasteride 5 Mg Tablet, 5 MG PO DAILY, (Reported) Isosorbide Mononitrate 30 Mg Tab.er.24h, 30 MG PO DAILY Prescribed by: LORIE GARCIA on 05/11/20531 Lansoprazole 15 Mg Capsule., 30 MG PO DAILY, (Reported) TAKES 2 (15MG) CAPS Leuprolide Acetate 30 Mg/Kit Soln, 30 MG IM EVERY 4 MONTHS, (Reported) Metoprolol Tartrate 25 Mg Tablet, 12.5 MG PO BID Prescribed by: LORIE GARCIA on 05/11/20531 Nitroglycerin 0.4 Mg Tab.subl, 0.4 MG PO UD PRN for CHEST PAIN (ANGINA), (Reported) [place] 3 Polyunsat Fatty Acids 1,000 Mg Cap, 2,000 MG PO BID, (Reported) TAKES 2 (1000MG) CAPS TWICE DAILY Simvastatin 80 Mg Tablet, 40 MG PO HS, (Reported) TAKES OF AN 80MG TAB Patient Home Medication List Home Medication List Reviewed: Yes Review of Systems Constitutional: see HPI; No chills, No fever EENTM: no symptoms reported Respiratory: No cough, No short of breath Cardiovascular: no symptoms reported Musculoskeletal: see HPI, joint pain, joint swelling Skin: change in color; No lesions Psychiatric/Neurological: Denies Numbness, Denies Paresthesia Past Cmaetrd-Rbubut-Sexdyo Hx Patient Social History Alcohol Use: Denies Use Number of Drinks Today: Alcohol Beverage of Choice: Wine Smoking Status: Former Smoker Type Used: Cigarettes Former Smoker, Quit: Jul 19, 1967 2nd Hand Smoke Exposure: No Recent Infectious Disease Expo: No Recent Hopitalizations: No Immunizations Up To Date Tetanus Booster (TDap): More than 5yrs Date of Pneumonia Vaccine: Jul 19, 2016 Date of Influenza Vaccine: Jul 19, 2017 Seasonal Allergies Seasonal Allergies: No Past Medical History Surgeries: Yes (R hip replacement, hand, R carpal tunnel, HERNIA) Abdominal, Bowel Surgery, Cardiac, CABG, Coronary Stent, Gallbladder Respiratory: No Cardiac: Yes (5 VESSEL CABG; CARDIAC STENTS AND ANGIOPLASTIES) Coronary Artery Disease, High Cholesterol, Hypertension Neurological: Yes Vertigo Reproductive Disorders: No Genitourinary: Yes (PROSTATE CA) Prostate Problems Gastrointestinal: Yes (COLON RESECTION FOR DIVERTI CULITIS;CHOLECYSTECTOMY;HERNIA REPAIR) Abdominal Hernia, Diverticulosis, Gall Bladder Disease Musculoskeletal: Yes (RIGHT HIP REPLACEMENT) Arthritis, Chronic Back Pain Endocrine: No HEENT: No Loss of Vision: Denies Hearing Impairment: Denies 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; 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, Skin Did You Recieve Any Treatments: Yes What Type of Treatment Did You: Chemotherapy Psychosocial: Yes Anxiety Integumentary: No Blood Disorders: No Adverse Reaction/Blood Tranf: No Family Medical History Reviewed Nursing Family Hx Cancer 19 MOTHER, , Age:38 FH: kidney cancer 19 FATHER, FHx: heart disease G8 BROTHER G8 SISTER Myocardial infarction 19 FATHER, PSH: -5 VESSEL CABG 1991 -CARDIAC CATHS--MULTIPLE STENTS X 4 AND MULTIPLE ANGIOPLASTIES -COLON RESECTION FOR DIVERTICULITIS -RIGHT HIP REPLACEMENT -CHOLECYSTECTOMY 2010 -RIGHT CARPPAL TUNNEL 08/2014 -BACK SURGERY -HERNIA REPAIR Physical Exam Vital Signs Vital Signs - First Documented 03/06/21 09:58 Temp 36.1 Pulse 62 Resp 15 B/P (MAP) 136/79 (98) Pulse Ox 99 O2 Delivery Room Air Capillary Refill : Less Than 3 Seconds Height, Weight, BMI Height: 5'10.00" Weight: 191lbs. 5.0oz. 86.485249km; 23.00 BMI Method:Stated General Appearance: WD/WN, no apparent distress Cardiovascular: regular rate, rhythm, no murmur Respiratory: lungs clear, normal breath sounds Elbow/Forearm: Left, limited ROM, pain, soft tissue tenderness, swelling (Left elbow swelling with some surrounding erythema. Range of motion limited due to pain but is able to flex and extend. He is able to supinate and pronate at the wrist without difficulty.) Hand: no evidence of injury, normal ROM, Bilateral Neurologic/Psychiatric: alert, oriented x 3 Skin: warm/dry, other (Erythema noted around posterior aspect left elbow.) Progress/Results/Core Measures Results/Orders Lab Results Laboratory Tests Test 03/06/21 11:00 Range/Units White Blood Count 9.3 4.3-11.0 10^3/uL Red Blood Count 4.09 L 4.30-5.52 10^6/uL Hemoglobin 12.2 L 13.3-17.7 g/dL Hematocrit 39 L 40-54 % Mean Corpuscular Volume 94 80-99 fL Mean Corpuscular Hemoglobin 30 25-34 pg Mean Corpuscular Hemoglobin Concent 32 32-36 g/dL Red Cell Distribution Width 13.7 10.0-14.5 % Platelet Count 136 130-400 10^3/uL Mean Platelet Volume 9.9 9.0-12.2 fL Immature Granulocyte % (Auto) 0 % Neutrophils (%) (Auto) 68 42-75 % Lymphocytes (%) (Auto) 18 12-44 % Monocytes (%) (Auto) 12 0-12 % Eosinophils (%) (Auto) 2 0-10 % Basophils (%) (Auto) 0 0-10 % Neutrophils # (Auto) 6.3 1.8-7.8 10^3/uL Lymphocytes # (Auto) 1.7 1.0-4.0 10^3/uL Monocytes # (Auto) 1.1 H 0.0-1.0 10^3/uL Eosinophils # (Auto) 0.1 0.0-0.3 10^3/uL Basophils # (Auto) 0.0 0.0-0.1 10^3/uL Immature Granulocyte # (Auto) 0.0 0.0-0.1 10^3/uL Percent Immature Platelet Fraction 2.4 0.0-7.6 % Sodium Level 139 135-145 MMOL/L Potassium Level 4.2 3.6-5.0 MMOL/L Chloride Level 102 98-107 MMOL/L Carbon Dioxide Level 27 21-32 MMOL/L Anion Gap 10 5-14 MMOL/L Blood Urea Nitrogen 21 H 7-18 MG/DL Creatinine 1.31 H 0.60-1.30 MG/DL Estimat Glomerular Filtration Rate 52 BUN/Creatinine Ratio 16 Glucose Level 101 70-105 MG/DL Uric Acid 4.7 2.6-7.2 MG/DL Calcium Level 9.2 8.5-10.1 MG/DL C-Reactive Protein High Sensitivity 8.10 H 0.00-0.50 MG/DL My Orders Orders - ELMO EAST MD Basic Metabolic Panel (03/06/21 10:43) Cbc With Automated Diff (03/06/21 10:43) Hs C Reactive Protein (03/06/21 10:43) Ketorolac Injection (Toradol Injection) (03/06/21 10:43) Uric Acid (03/06/21 10:43) Elbow, Left, 3 Views (03/06/21 11:42) Lidocaine 1% Inj 20 Ml (Xylocaine 1% Inj (03/06/21 12:00) Medications Given in ED Current Medications Medications Dose Ordered Sig/Tiarra Route Start Time Stop Time Status Last Admin Dose Admin Lidocaine HCl 20 ml ONCE ONCE INJ 03/06/21 12:00 03/06/21 12:01 DC 03/06/21 12:43 2 ML Vital Signs/I&O 03/06/21 09:58 Temp 36.1 Pulse 62 Resp 15 B/P (MAP) 136/79 (98) Pulse Ox 99 O2 Delivery Room Air Blood Pressure Mean: 98 Progress Progress Note : Progress Note Seen and evaluated. Patient does have history of gout and this may be related to that. We will check labs for infectious sources and give Toradol 30 mg IM. Further therapy based on labs. Monitor patient. 1300: X-ray of the elbow was a lso done. Does have moderate degeneration. I did attempt an arthrocentesis to the left elbow lateral approach after anesthesia with 2 mL of lidocaine. I was unable to access the joint space and unable to withdraw fluid. Given his history, we will go ahead and initiate steroid for possible gouty arthritis but we will also initiate antibiotics since we are unable to get fluid. Patient will follow up here tomorrow for recheck and further evaluation if not improving. Rocephin 1 g IM and hydrocodone 5/325 1 tab p.o. Discharged home with return precautions. Patient and family verbalized understanding instructions and agreement with plan. Diagnostic Imaging Diagonstic Imaging: Xray Plain Films/CT/US/NM/MRI: other Comments [facility], [place] NAME: CAITIE FULLER [facility] REC#: [id number] PT STATUS: REG ER : 1935 PHYSICIAN: ELMO EAST MD ADMIT DATE: 03/06/21/ER Draft Date of Exam:03/06/21 ELBOW, LEFT, 3 VIEWS Indication: Left elbow pain. Time of exam: 11:53 AM 3 views of the left elbow were obtained. There appeared to be benign calcifications of the medial and lateral elbow joints. Alignment is normal. No fractures are seen. Evaluation for effusion is limited due to absence of a true lateral view. Impression: Chronic changes. No acute bony abnormality is detected. Dictated on workstation # [id number] Dict: 03/06/21 1156 Trans: 03/06/21 1211 CV [id number] Interpreted by: MORRIS MARQUIS MD Electronically signed by: Departure Impression Primary Impression: Left elbow pain Disposition: 01 HOME, SELF-CARE Condition: Stable Departure-Patient Inst. Referrals: DARSHAN DESAI DO (PCP/Family) Primary Care Physician Patient Instructions: Joint Pain Add. Discharge Instructions: All discharge instructions reviewed with patient and/or family. Voiced understanding. Your elbow is swollen and this may be related to gout but could also be related to infection. Take medications as directed including the steroids daily. You should take the steroids early in the morning but take the first dose as soon as you get it today. You will start the antibiotics that were prescribed tomorrow. You may take the prescribed pain medicine as directed. You may also take ibuprofen 2 tablets every 8 hours as needed for pain as well. Do not exceed that dose. Return tomorrow for recheck and further evaluation if not markedly improved and earlier if worsening. Return for fever, weakness, increasing swelling or other concerns as needed. Scripts Prednisone (Prednisone) 20 Mg Tab 40 MG PO DAILY, #8 TAB 0 Refills Prov: ELMO EAST MD 03/06/21 Hydrocodone Bit/Acetaminophen (HYDROcodone/APAP 5 MG/325 MG TAB) 1 Tab Tab 1 TAB PO Q6H for Pain, #8 TAB 0 Refills Prov: ELMO EAST MD 03/06/21 Cephalexin (Cephalexin) 500 Mg Tablet 500 MG PO QID, #20 TAB 0 Refills Prov: ELMO EAST MD 03/06/21 ELMO EAST MD Mar 06, 2021 11:08
[2021-03-06 11:09] LABS: BASOPHILS % (AUTO) 0 % (0-10); EOSINOPHILS # (AUTO) 0.1 10^3/uL (0.0-0.3); EOSINOPHILS % (AUTO) 2 % (0-10); HEMATOCRIT 39 % (40-54); HEMOGLOBIN 12.2 g/dL (13.3-17.7); LYMPHOCYTES # (AUTO) 1.7 10^3/uL (1.0-4.0); LYMPHOCYTES % (AUTO) 18 % (12-44); MEAN CORPUSCULAR HEMOGLOBIN 30 pg (25-34); MEAN CORPUSCULAR HGB CONC 32 g/dL (32-36); MEAN CORPUSCULAR VOLUME 94 fL (80-99); MEAN PLATELET VOLUME 9.9 fL (9.0-12.2); MONOCYTES # (AUTO) 1.1 10^3/uL (0.0-1.0); MONOCYTES % (AUTO) 12 % (0-12); NEUTROPHILS # (AUTO) 6.3 10^3/uL (1.8-7.8); NEUTROPHILS % (AUTO) 68 % (42-75); PLATELET COUNT 136 10^3/uL (130-400); WHITE BLOOD COUNT 9.3 10^3/uL (4.3-11.0)
[2021-03-06 11:18] LABS: POTASSIUM 4.2 MMOL/L (3.6-5.0)
[2021-03-06 11:19] LABS: CALCIUM 9.2 MG/DL (8.5-10.1)
[2021-03-06 11:23] LABS: CREATININE SERUM 1.31 MG/DL (0.60-1.30)
[2021-03-06 11:26] LABS: URIC ACID 4.7 MG/DL (2.6-7.2)
[2021-03-06] MEDS ORDERED: LIDOCAINE 1% INJ 20 ML 20 ML VIAL INJ ONE ×2 (12:00→13:00)
--- NOTE | 2021-03-06 12:12 | Diagnostic Imaging Report ---
Indication: Left elbow pain. Time of exam: 11:53 AM 3 views of the left elbow were obtained. There appeared to be benign calcifications of the medial and lateral elbow joints. Alignment is normal. No fractures are seen. Evaluation for effusion is limited due to absence of a true lateral view. Impression: Chronic changes. No acute bony abnormality is detected. Dictated by: Dictated on workstation # [id number]
[2021-03-06] MEDS ORDERED: HYDROcodone/APAP 5 MG/325 MG (LORTAB) TAB PO ONE (13:00)
[2021-03-06] MEDS ORDERED: cefTRIAXone 1,000 MG VIAL IM ONE (13:00)
[2021-03-06] MEDS ORDERED: PRD20T PO (13:05)
[2021-03-06] MEDS ORDERED: ACHD5005 PO (13:05)
[2021-03-06] MEDS ORDERED: CEPH500T PO (13:05)
[2021-03-06 13:35] VITALS: BP 115/58
== END 2021-03-06 13:35 | disposition home or self-care (01) ==
LOC: EDUNIT# 09:29 → ER 09:31
DX: M25.522 Pain in left elbow (principal); I10 Essential (primary) hypertension; E78.00 Pure hypercholesterolemia, unspecified; I25.10 Atherosclerotic heart disease of native coronary artery without angina pectoris; F41.9 Anxiety disorder, unspecified; Z87.891 Personal history of nicotine dependence; Z79.82 Long term (current) use of aspirin; Z79.899 Other long term (current) drug therapy
CPT/HCPCS: 36415; 73080; 80048; 84550; 85025; 86141

== ENCOUNTER → 2022-03-01 | Outpatient (CLI) | payer MEDICARE ==
[~2022-03-01] MED LIST changes: +ACHD5005 PO; +CEPH500T PO; +PRD20T PO
--- NOTE | 2022-03-01 16:38 | Diagnostic Imaging Report ---
INDICATION: Left hip pain The study compared with 08/07/2018 TECHNIQUE: The patient received 27 mCi technetium 99 MDP via intravenous, after a 3 hour delay, whole-body planar imaging performed. FINDINGS: Areas of elevated uptake in the bilateral sternoclavicular joints, the right AC joint and the bilateral knees as well as multiple lumbar endplates and facets, sable from prior and are presumed on a degenerative basis. No suspicious rib, sternal or calvarial uptake. No findings to suggest scintigraphic evidence of metastatic disease. IMPRESSION: Stable and likely benign degenerative distribution of the radiopharmacy, unchanged. No new or suspicious finding. Dictated by: Dictated on workstation # [id number]
== END ==
LOC: CARD 10:33
PROVIDERS: ATTEND Urology
DX: M25.552 Pain in left hip (principal)
CPT/HCPCS: 78306; A9503

== ENCOUNTER → 2022-11-15 | Outpatient (RCR) | payer MEDICARE ==
[~2022-11-15] MED LIST changes: +LEUPROLIDE 22.5 MG SYRINGE (ELIGARD) SQ SCH
== END ==
LOC: ONC 09:54
PROVIDERS: ATTEND Internal Medicine Hematology & Oncology
DX: C61 Malignant neoplasm of prostate (principal)
CPT/HCPCS: 84153

== ENCOUNTER 2022-11-17 13:39 | Outpatient (RCR) | payer MEDICARE ==
[~2022-11-17 13:39] MED LIST changes: -LEUPROLIDE 22.5 MG SYRINGE (ELIGARD) SQ SCH
[2022-11-17 13:49] LABS: BILIRUBIN,URINE NEGATIVE (NEGATIVE); CLARITY,URINE CLEAR; COLOR,URINE YELLOW; GLUCOSE, URINE (UA) NEGATIVE (NEGATIVE); KETONES,URINE NEGATIVE (NEGATIVE); LEUKOCYTE ESTERASE ,URINE NEGATIVE (NEGATIVE); NITRITE,URINE NEGATIVE (NEGATIVE); PROTEIN,URINE NEGATIVE (NEGATIVE)
[2022-11-17 13:58] LABS: BACTERIA,URINE NEGATIVE /HPF
== END 2022-11-21 12:11 | disposition home or self-care (01) ==
LOC: ONC 13:39
PROVIDERS: ATTEND Internal Medicine Hematology & Oncology
DX: C61 Malignant neoplasm of prostate (principal)
CPT/HCPCS: 81000

== ENCOUNTER 2023-02-07 10:47 | Outpatient (RCR) | payer MEDICARE ==
[2023-01-31 09:42] LABS: BASOPHILS % (AUTO) 1 % (0-10); EOSINOPHILS # (AUTO) 0.3 10^3/uL (0.0-0.3); EOSINOPHILS % (AUTO) 5 % (0-10); HEMATOCRIT 42 % (40-54); HEMOGLOBIN 13.3 g/dL (13.3-17.7); LYMPHOCYTES # (AUTO) 1.3 10^3/uL (1.0-4.0); LYMPHOCYTES % (AUTO) 26 % (12-44); MEAN CORPUSCULAR HEMOGLOBIN 31 pg (25-34); MEAN CORPUSCULAR HGB CONC 32 g/dL (32-36); MEAN CORPUSCULAR VOLUME 95 fL (80-99); MEAN PLATELET VOLUME 9.6 fL (9.0-12.2); MONOCYTES # (AUTO) 0.4 10^3/uL (0.0-1.0); MONOCYTES % (AUTO) 7 % (0-12); NEUTROPHILS % (AUTO) 61 % (42-75); PLATELET COUNT 181 10^3/uL (130-400)
[2023-01-31 10:05] LABS: ALBUMIN 4.1 GM/DL (3.2-4.5); BILIRUBIN,TOTAL 0.5 MG/DL (0.1-1.0); CALCIUM 9.5 MG/DL (8.5-10.1); CREATININE SERUM 1.4 MG/DL (0.60-1.30); POTASSIUM 4.1 MMOL/L (3.6-5.0); TOTAL PROTEIN 6.5 GM/DL (6.4-8.2)
[~2023-02-07 10:47] MED LIST changes: +LEUPROLIDE 22.5 MG SYRINGE (ELIGARD) SQ SCH
== END 2023-02-10 07:38 | disposition home or self-care (01) ==
LOC: ONC 10:47
PROVIDERS: ATTEND Internal Medicine Hematology & Oncology
DX: C61 Malignant neoplasm of prostate (principal)
CPT/HCPCS: 80053; 84153; 85025; 96402

== ENCOUNTER → 2023-02-22 | Outpatient (CLI) | payer MEDICARE ==
[~2023-02-22] MED LIST changes: -LEUPROLIDE 22.5 MG SYRINGE (ELIGARD) SQ SCH
--- NOTE | 2023-02-22 13:51 | Diagnostic Imaging Report ---
PROCEDURE: US right lower extremity venous. TECHNIQUE: Multiple real-time grayscale images were obtained over the right lower extremity in various projections. Additional spectral analysis and color Doppler duplex images were also obtained. INDICATION: Right lower extremity edema. There is no evidence of right lower extremity DVT. Right lower extremity deep venous system shows normal compressibility with normal response to augmentation Valsalva. No fluid collection or mass is detected. IMPRESSION: No evidence of right lower extremity DVT. Dictated by: Dictated on workstation # [id number]
== END ==
LOC: RAD 13:01
PROVIDERS: ATTEND Internal Medicine
DX: R60.0 Localized edema (principal)

== ENCOUNTER 2023-05-10 09:43 | Outpatient (RCR) | payer MEDICARE ==
[~2023-05-10 09:43] MED LIST changes: +LEUPROLIDE 22.5 MG SYRINGE (ELIGARD) SQ SCH
[2023-05-10 10:27] LABS: BASOPHILS # (AUTO) 0.1 10^3/uL (0.0-0.1); BASOPHILS % (AUTO) 1 % (0-10); EOSINOPHILS # (AUTO) 0.3 10^3/uL (0.0-0.3); EOSINOPHILS % (AUTO) 4 % (0-10); HEMATOCRIT 41 % (40-54); HEMOGLOBIN 12.9 g/dL (13.3-17.7); LYMPHOCYTES # (AUTO) 1.9 10^3/uL (1.0-4.0); LYMPHOCYTES % (AUTO) 29 % (12-44); MEAN CORPUSCULAR HEMOGLOBIN 30 pg (25-34); MEAN CORPUSCULAR HGB CONC 32 g/dL (32-36); MEAN CORPUSCULAR VOLUME 94 fL (80-99); MEAN PLATELET VOLUME 9.8 fL (9.0-12.2); MONOCYTES # (AUTO) 0.6 10^3/uL (0.0-1.0); MONOCYTES % (AUTO) 8 % (0-12); NEUTROPHILS # (AUTO) 3.9 10^3/uL (1.8-7.8); NEUTROPHILS % (AUTO) 59 % (42-75); PLATELET COUNT 176 10^3/uL (130-400); WHITE BLOOD COUNT 6.7 10^3/uL (4.3-11.0)
[2023-05-10 10:45] LABS: BILIRUBIN,TOTAL 0.5 MG/DL (0.1-1.0); CALCIUM 9.1 MG/DL (8.5-10.1); CREATININE SERUM 1.38 MG/DL (0.60-1.30); POTASSIUM 4.3 MMOL/L (3.6-5.0); TOTAL PROTEIN 6.4 GM/DL (6.4-8.2)
== END 2023-05-15 13:48 | disposition home or self-care (01) ==
LOC: ONC 09:43
PROVIDERS: ATTEND Internal Medicine Hematology & Oncology
DX: C61 Malignant neoplasm of prostate (principal); I10 Essential (primary) hypertension; I25.10 Atherosclerotic heart disease of native coronary artery without angina pectoris
CPT/HCPCS: 80053; 84153; 85025; 96402; G0463; 36415; 99214

== ENCOUNTER 2023-08-02 09:37 | Outpatient (RCR) | payer MEDICARE ==
[2023-07-31 11:26] LABS: BASOPHILS % (AUTO) 1 % (0-10); EOSINOPHILS # (AUTO) 0.3 10^3/uL (0.0-0.3); EOSINOPHILS % (AUTO) 4 % (0-10); HEMATOCRIT 40 % (40-54); HEMOGLOBIN 12.6 g/dL (13.3-17.7); LYMPHOCYTES # (AUTO) 1.8 10^3/uL (1.0-4.0); LYMPHOCYTES % (AUTO) 30 % (12-44); MEAN CORPUSCULAR HEMOGLOBIN 30 pg (25-34); MEAN CORPUSCULAR HGB CONC 32 g/dL (32-36); MEAN CORPUSCULAR VOLUME 94 fL (80-99); MEAN PLATELET VOLUME 9.1 fL (9.0-12.2); MONOCYTES # (AUTO) 0.5 10^3/uL (0.0-1.0); MONOCYTES % (AUTO) 9 % (0-12); NEUTROPHILS # (AUTO) 3.4 10^3/uL (1.8-7.8); NEUTROPHILS % (AUTO) 57 % (42-75); PLATELET COUNT 211 10^3/uL (130-400)
[2023-07-31 11:43] LABS: BILIRUBIN,TOTAL 0.4 MG/DL (0.1-1.0); CALCIUM 9.2 MG/DL (8.5-10.1); CREATININE SERUM 1.3 MG/DL (0.60-1.30); POTASSIUM 4.5 MMOL/L (3.6-5.0); TOTAL PROTEIN 6.6 GM/DL (6.4-8.2)
== END 2023-08-07 11:45 | disposition home or self-care (01) ==
LOC: ONC 09:37
PROVIDERS: ATTEND Internal Medicine Hematology & Oncology
DX: C61 Malignant neoplasm of prostate (principal); I10 Essential (primary) hypertension; I25.10 Atherosclerotic heart disease of native coronary artery without angina pectoris; E78.2 Mixed hyperlipidemia
CPT/HCPCS: 80053; 84153; 85025; 96402; G0463; 36415; 99214